=== PATIENT | female | born 1950 | race Hispanic/Latino ===

== ENCOUNTER 2023-06-18 06:37 | Day surgery (SDC) | payer MEDICARE, SELFPAY ==
--- NOTE | 2023-06-17 07:17 | WPDANESEPPF ---
Anes - Initial Pre Proc Eval Procedure: Operation Date: 06/18/23 09:00 Proposed Procedures p Esophagogastroduodenoscopy - Suresh Romero MD Date/Time: 06/17/23 07:17 Surgeon: Suresh Romero MD Pre Op Diagnosis: Gerd without Esophagitis Patient Data Age: 72 Gender: F Height: 1.57 m Weight: 69.8 kg Allergies Allergy/AdvReac Type Severity Reaction Status Date / Time latex AdvReac Rash Verified 06/18/23 07:40 Home Medications Medication Instructions Recorded Confirmed Type amlodipine 2.5 mg tablet 2.5 mg PO HS 04/23/23 06/18/23 History gemfibrozil 600 mg tablet 600 mg PO BID 04/23/23 06/18/23 History insulin glargine 100 unit/mL (3 50 unit subcut DAILY 04/23/23 06/18/23 History mL) subcutaneous pen (Basaglar KwikPen U-100 Insulin) losartan 25 mg tablet 25 mg PO DAILY 04/23/23 06/18/23 History metformin 1,000 mg tablet 1,000 mg PO BID 04/23/23 06/18/23 History pantoprazole 40 mg tablet,delayed 40 mg PO DAILY 04/23/23 06/18/23 History release rosuvastatin 40 mg tablet 40 mg PO DAILY 04/23/23 06/18/23 History semaglutide 0.25 mg or 0.5 mg (2 0.5 mg subcut WEEKLY 04/23/23 06/18/23 History mg/3 mL) subcutaneous pen injector (Ozempic) sertraline 50 mg tablet 50 mg PO DAILY 04/23/23 06/18/23 History Patient hx anesthesia problems: none Family hx anesthesia problems: none Results Review: All pre-operative results and documents have been reviewed as part of the pre-operative evaluation. [facility] Past Medical History Medical History (Updated 06/17/23 @ 13:16 by Suresh Romero MD) Anxiety Depression Diabetes type 2, controlled Hyperlipidemia Hypertension Social History Social History Smoking status: Former smoker Alcohol intake: current Alcohol use details: 2x per month Substance use type: does not use Living arrangements: alone Spiritual care concerns: No Anes - Eval Final PreProcedure Day of Procedure 06/17/23 07:17 Patient weight: overweight Heart: regular rate and rhythm Lungs: clear to auscultation Airway: Mallampati scale class II Neurological: alert and oriented Last oral intake: >/= 8 hours ASA classification: III Emergent: no Anesthetic plan: proceed Anesthesia type and monitoring: general GIVS and standard monitoring Results Review: All pre-operative results and documents have been reviewed as part of the pre-operative evaluation. Informed Consent: The patient's anesthetic plan and its attendant risks and benefits were discussed with the patient/family/POA. Questions were solicited and answers provided to the satisfaction of the patient/family/POA.
--- NOTE | 2023-06-17 13:16 | P.HP_ITS ---
History of Present Illness History of Present Illness Consent: Risks, benefits, and alternatives have been discussed and questions answered. Patient agrees to proceed with procedure. Chief complaint: Gerd without Esophagitis Narrative: Gena Flores is a 72 year old female was referred for investigation of refractory reflux symptoms. She has been taking pantoprazole 40 mg per day For the past month or so and it works fairly well for her. A urgent care nurse practitioner once her GB off of it because of her chronic kidney disease. She had tried for a while but it was totally not affective. Her main symptoms and that she has heartburn now relieved by pantoprazole but also regurgitates burps frequently. We discussed diet. She does drink quite a bit of water during the day usually straw. Review of Systems Review of Systems: All systems reviewed & are unremarkable except as noted in HPI and below PMFSH Past Medical History Medical History Anxiety Depression Diabetes type 2, controlled Hyperlipidemia Hypertension Social History Social History Smoking status: Former smoker Alcohol intake: current Alcohol use details: 2x per month Substance use type: does not use Living arrangements: alone Spiritual care concerns: No Meds Home Medications and Allergies Home Medications Medication Instructions Recorded Confirmed Type amlodipine 2.5 mg tablet 2.5 mg PO HS 04/23/23 06/18/23 History gemfibrozil 600 mg tablet 600 mg PO BID 04/23/23 06/18/23 History insulin glargine 100 unit/mL (3 50 unit subcut DAILY 04/23/23 06/18/23 History mL) subcutaneous pen (Basaglar KwikPen U-100 Insulin) losartan 25 mg tablet 25 mg PO DAILY 04/23/23 06/18/23 History metformin 1,000 mg tablet 1,000 mg PO BID 04/23/23 06/18/23 History pantoprazole 40 mg tablet,delayed 40 mg PO DAILY 04/23/23 06/18/23 History release rosuvastatin 40 mg tablet 40 mg PO DAILY 04/23/23 06/18/23 History semaglutide 0.25 mg or 0.5 mg (2 0.5 mg subcut WEEKLY 04/23/23 06/18/23 History mg/3 mL) subcutaneous pen injector (Ozempic) sertraline 50 mg tablet 50 mg PO DAILY 04/23/23 06/18/23 History Allergies Allergy/AdvReac Type Severity Reaction Status Date / Time latex AdvReac Rash Verified 06/18/23 07:40 Exam Const: General: alert Orientation/consciousness: patient oriented x3 Resp: Auscultation: clear to auscultation bilaterally Cardio: Rhythm: regular rhythm GI: GI Palp: Yes Soft to palpation and No Tenderness to palpation present (GI) Neuro: General: patient oriented x3 Assessment and Plan Assessment and plan (1) GERD (gastroesophageal reflux disease): Code(s): K21.9 - Gastro-esophageal reflux disease without esophagitis Status: Acute Assessment and Plan: EGD with possible biopsy or dilatation or cautery.
[2023-06-18 07:50] VITALS: BP 135/57; PULSE 65; RESP 16; TEMP 36.6; O2SAT 100; BMI 29.2
[2023-06-18] MEDS: LACTATED RINGERS 1,000 ML 150 ML IV CONT (08:03)
[2023-06-18 08:06] LABS: Glucose Point of Care 165 mg/dl (65-105)
[2023-06-18 08:45] VITALS: BP 109/41; PULSE 69; RESP 18; O2SAT 98
[2023-06-18 08:55] VITALS: BP 109/50; PULSE 66; RESP 18; O2SAT 100
[2023-06-18 09:05] VITALS: BP 123/53; PULSE 72; RESP 20; O2SAT 100
--- NOTE | 2023-06-18 11:48 | WPDANESPN ---
Anes - Prog Note Post-Op Date/Time: 06/18/23 11:48 Cardiovascular status: normal Respiratory status: normal Airway patency: baseline Mental status: baseline Post-Op hydration status: normal Vital Signs: Last Vital Signs Temp 36.6 C 06/18/23 07:50 Pulse 72 06/18/23 09:05 Resp 20 06/18/23 09:05 BP 123/53 L 06/18/23 09:05 Pulse Ox 100 06/18/23 09:05 O2 Del Method Room Air 06/18/23 09:05 Pain Score (VAS): 0 I/O: Intake & Output 06/17/23 06/18/23 06/18/23 23:59 07:59 15:59 Intake Total 300 Balance 300 06/18/23 08:01 POC Capillary Glucose 165 H Post-procedural complaints: none Patient Feedback: Patient satisfied with anesthetic care. Other Findings: Patient vital signs back to baseline. Patient denies nausea and vomiting. Patient's pain under control. Patient OK for discharge.
== END 2023-06-18 09:16 | disposition home or self-care (01) ==
PROVIDERS: PCP Internal Medicine; Visit Provider Internal Medicine Gastroenterology
PROC: 0DJ08ZZ Inspection of Upper Intestinal Tract, Via Natural or Artificial Opening Endoscopic (ICD-10-PCS; CPT 43235; principal; 2023-06-18 09:00)
DX: K21.00 Gastro-esophageal reflux disease with esophagitis, without bleeding (principal); K22.70 Barrett's esophagus without dysplasia
CPT/HCPCS: 43239

== ENCOUNTER 2023-06-18 07:00 | Outpatient (NON) | payer MEDICARE, SELFPAY | END 2023-06-18 07:01 | disposition home or self-care (01) | PROVIDERS: PCP Internal Medicine; Visit Provider Internal Medicine Gastroenterology | DX: K21.9 Gastro-esophageal reflux disease without esophagitis (principal) | CPT/HCPCS: 88305 ==

== ENCOUNTER 2023-12-24 10:22 | Outpatient (CLI) | payer MEDICARE, SELFPAY ==
--- NOTE | ~2023-12-24 | XR_ITS ---
Clinical Indication: Preoperative evaluation PA and lateral views of the chest: Comparison: None Findings: The lungs are clear, without evidence of focal consolidation or pleural effusion. Cardiome diastinal silhouette is within normal limits. Bones and soft tissues are unremarkable. Impression: Normal chest. Reviewed, dictated and finalized at location . Impression: Normal chest.
--- NOTE | 2023-12-24 11:51 | ECG_ITS ---
SEE SCANNED COPY FOR CONFIRMED REPORT MTDD
[2023-12-24 12:58] LABS: Basophils Percent Auto 0.3 % (0.2-1.2); Eosinophils Absolute Auto 0.1 K/mm3 (0-0.3); Hematocrit 35.3 % (37.0-47.0); Hemoglobin 10.9 g/dL (12.0-15.0); Immature Granulocyte Absolute 0.03 K/mm3 (0.00-0.031); Immature Granulocyte Percent A 0.2 % (0-0.5); Lymphocytes Absolute Auto 2.12 K/mm3 (0.9-3.2); Lymphocytes Percent Auto 16.8 % (18.3-44.2); Mean Corpuscular HGB Conc 30.9 g/dl (32-36); Mean Corpuscular Hemoglobin 30.4 pg (26-34); Mean Corpuscular Volume 98.3 fl (80-100); Mean Platelet Volume 11.6 fl (7.4-10.4); Monocytes Absolute Auto 0.9 K/mm3 (0.1-0.6); Monocytes Percent Auto 6.8 % (2.6-8.5); Neutrophils Absolute Auto 9.4 K/mm3 (1.3-6.7); Neutrophils Percent Auto 74.9 % (45.5-73.1); Platelet Count Result 352 k/mm3 (150-375); Red Blood Count 3.59 M/mm3 (4.2-5.4); Red Cell Distribution Width 11.8 % (11.5-14.5); White Blood Count 12.6 K/mm3 (4.5-10.0)
[2023-12-24 13:05] LABS: Appearance Urine Turbid (Clear); Bacteria Urine 4+ /hpf; Bilirubin Urine Negative (Negative); Blood Urine Trace (Negative); Color Urine Yellow (Yellow); Glucose Urine UA Negative (Negative); Ketones Urine Negative (Negative); Leukocyte Esterase Ur 3+ LEU/UL (Negative); Nitrate Urine Negative (Negative); Protein Urine 2+ mg/dL (Negative); RBC Urine 0-2 /hpf (0-2); Specific Grav Ur 1.014 (1.001-1.035); Squamous Epithelial Cell Urine Moderate /hpf (Few); Urobilinogen Urine 0.2 mg/dL (<2.0); WBC Urine >100 /hpf (0-3); pH Urine 5.5 (5.0-9.0)
[2023-12-24 13:17] LABS: INR 1.1; Prothrombin Time 14.5 Seconds (11.1-14.7)
[2023-12-24 13:18] LABS: Partial Thromboplastin Time 34.5 Seconds (22.3-36.8)
[2023-12-24 13:25] LABS: Add Urine Microscopic? YES
[2023-12-24 13:30] LABS: Alanine Aminotransferase 17 U/L (6-35); Alkaline Phosphatase 88 U/L (38-126); Anion Gap 11 mmol/L (4-12); Aspartate Amino Transferase 26 U/L (14-36); Bilirubin,Total 0.5 mg/dL (0.2-1.3); Blood Urea Nitrogen 27 mg/dL (7-17); Carbon Dioxide 24 mmol/L (22-30); Chloride 107 mmol/L (98-107); Cholesterol 147 mg/dL (0-200); Estimated Glomerular Filt Rate 37; Glucose 166 mg/dL (65-110); HDL Direct 51 mg/dL; Potassium 3.7 mmol/L (3.4-5.0); Sodium 142 mmol/L (137-145); Triglycerides 82 mg/dL (<150)
[2023-12-24 13:39] LABS: Hemoglobin A1C 7.2 % (<5.7)
[2023-12-24 13:40] LABS: Parathyroid Intact 75.7 pg/mL (7.5-53.5)
[2023-12-24 13:41] LABS: LDL Cholesterol Direct 66 mg/dL
[2023-12-24 14:02] LABS: Vitamin D 25 Hydroxy 46.4 ng/mL
[2023-12-24 17:53] LABS: Creatinine Urine 102.5 mg/dL; Total Protein Urine Random 78 mg/dL; Ur Ttl Prot Creatinine Ratio 0.76 mg/mg (0-0.20)
== END 2023-12-24 10:23 | disposition home or self-care (01) ==
LOC: ANHSURGERY 10:25 → ANHLAB 11:04 → ANHSURGERY 11:32
PROVIDERS: PCP Internal Medicine; Referring Provider Internal Medicine Nephrology; Visit Provider Surgery
DX: Z01.818 Encounter for other preprocedural examination (principal); K22.70 Barrett's esophagus without dysplasia; N18.9 Chronic kidney disease, unspecified; K21.00 Gastro-esophageal reflux disease with esophagitis, without bleeding
CPT/HCPCS: 36415; 71046; 80053; 80061; 81001; 82306; 82570; 83036; 83970; 84100; 84156; 85025; 85610; 85730; 93005

== ENCOUNTER 2023-12-29 09:48 | Outpatient (CLI) | payer MEDICARE, SELFPAY ==
[2023-12-29 10:16] LABS: Appearance Urine Cloudy (Clear); Bacteria Urine 4+ /hpf; Bilirubin Urine Negative (Negative); Blood Urine Non-Hemolyzed Trace (Negative); Color Urine Yellow (Yellow); Glucose Urine UA Negative (Negative); Ketones Urine Negative (Negative); Leukocyte Esterase Ur 3+ LEU/UL (Negative); Nitrate Urine Positive (Negative); Protein Urine 1+ mg/dL (Negative); RBC Urine 0-2 /hpf (0-2); Specific Grav Ur 1.015 (1.001-1.035); Squamous Epithelial Cell Urine Occasional /hpf (Few); Urobilinogen Urine 0.2 mg/dL (<2.0); WBC Urine >100 /hpf (0-3); pH Urine 5.5 (5.0-9.0)
[2023-12-29 10:19] LABS: Add Urine Microscopic? YES
== END 2023-12-29 09:49 | disposition home or self-care (01) ==
PROVIDERS: PCP Internal Medicine; Visit Provider Surgery
DX: R39.89 Other symptoms and signs involving the genitourinary system (principal)
CPT/HCPCS: 81001; 87077; 87086; 87088; 87186

== ENCOUNTER 2024-02-05 11:18 | Outpatient (CLI) | payer MEDICARE, SELFPAY | END 2024-02-05 11:19 | disposition home or self-care (01) | PROVIDERS: PCP Internal Medicine; Visit Provider Surgery | DX: Z01.818 Encounter for other preprocedural examination (principal); K21.00 Gastro-esophageal reflux disease with esophagitis, without bleeding | CPT/HCPCS: 36415; 86850; 86900; 86901 ==

== ENCOUNTER 2024-02-10 01:26 | Day surgery (SDC) | payer MEDICARE, SELFPAY ==
[2023-12-21 16:04] VITALS: BMI 30.1
--- NOTE | 2023-12-21 16:27 | PC.NURSE ---
Report to the Outpatient Waiting Room, entrance under the green pavilion located off [facility], at time ___6:30AM____ on date __01/06/24 . Planned Procedure Time: __8:30AM . Time changes happen often and if your time is changed the preop area will call you the afternoon before. - You and your visitor will be asked to self-screen and do not enter if you have any COVID symptoms. - A mask is optional within the hospital at this time. CLEAR LIQUIDS FOR SUPPER ON EVENING BEFORE SURGERY PER DR BROWN(NO SOLID FOODS). Patients may have clear liquids (water, carbonated beverages, clear teas, apple juice) until 3 hours prior to surgery with a maximum of 20 ounces. Take the following medications with a SIP of water the morning of surgery: ___SERTRALINE DO NOT STOP ANY OF YOUR OTHER PRESCRIPTION MEDICATIONS PRIOR TO SURGERY ?EXCEPT THE FOLLOWING Medications to discontinue per physician HOLD PRESERVISION AREDS 2 FOR 3 DAYS PRE-OP PER ANESTHESIA Date to take last dose 01/02/24 Please no make-up, nail french, hairspray, perfume, deodorant, or body powder the day of surgery. No jewelry (including any body piercings) or valuables the day of surgery, leave them at home. Please take a shower or bath the night before, or the morning of, surgery with an antibacterial soap. Wear comfortable, loose fitting clothing. - Jewelry must be removed prior to entering the operating room. Rings and piercings that are not removed may be cut off. - The hospital will not accept responsibility for valuables. - Please leave all valuables, including medications, at home the day of surgery. If you are going home after surgery, a licensed local company refrigerated truck driver must drive you home. - NO public transportation without another adult if you receive anesthesia. - We recommend that an adult stay with you for 24 hours following discharge. - We also recommend that you do not drive, make important decision, drink alcoholic beverages, or take any drugs that were not prescribed by your health care provider for at least 24 hours after your discharge time. Follow any additional instructions given to you from your surgeon. If you or anyone in your household have experienced Covid symptoms in the past week, please notify your surgeon or the nurse liaison at the phone number below for possible testing. Telephone instructions given to ___PATIENT and asked if any additional questions and then verbalized understanding. Patient advised to call surgeon office or pre surgery nurse liaison [phone] if any additional questions.
--- NOTE | 2024-01-04 17:06 | PM.IMHP ---
H&P: HPI History of Present Illness Date/Time: 01/04/24 17:06 Chief Complaint: GERD with esophagitis and Curran's esophagus (no dysplasia); Hiatal hernia Narrative: The patient is a 73 yo woman who has had problems with reflux for over 30 years. She had tried multiple antacids, and acid reducing agents with only fair relief. She has been managed best with Pantoprazole twice a day. However, she is an insulin dependent diabetic and has CKD stage III. Her free lance artist wants her to discontinue her proton pump inhibitors due to her CKD. When off her Protonix she has severe heartburn. Even with Protonix, she has a lot of regurgitation and eructation. She had an EGD in June which showed esophagitis and Curran's esophagus without dysplasia. She had esophageal manometry which showed ineffective esophageal motility with contraction reserve and her LES was hypotensive. After discussion, she is taken to surgery now for laparoscopic repair of hiatal hernia and a partial (Toupet) fundoplication. Review of Systems Review of Systems: All systems reviewed & are unremarkable except as noted in HPI and below (HPI and those items noted below:) Constitutional: Constitutional: Denies chills and Denies fever(s) Cardiovascular: Cardiovascular: Denies chest pain, Denies diaphoresis, Denies dyspnea and Denies paroxysmal nocturnal dyspnea Respiratory: Respiratory: Denies chest congestion, Denies cough and Denies dyspnea Genitourinary: Comments: patient had abnormal U/A 2 weeks ago. Cultures were positive for Klebsiella. This has been treated as an outpatient with Bactrim DS. Integumentary/Breasts: Skin/Breast: Denies lesions and Denies rash PMFSH Past Medical History Medical History Anxiety Depression Diabetes type 2, controlled Hyperlipidemia Hypertension Surgical History Surgical History H/O tubal ligation History of surgery on lower extremity Family History Family History Father Diabetes mellitus Mother Heart disease Hypertension Grandparent Heart disease Cerebrovascular accident Social History Social History Smoking packs per day: 2 Smoking cigarettes per day: 40.0 Years smoked: 23 Smoking pack-years: 46.00 Smoking status: Former smoker Tobacco type: cigarettes Smoking end date: 02/07/95 Alcohol intake: current Alcohol use details: 2x per month Substance use type: does not use Living arrangements: with family Additional living arrangements comments: MOTHER LIVES WITH PATIENT Spiritual care concerns: No Meds Home Medications and Allergies Home Medications Medication Instructions Recorded Confirmed Type amlodipine 2.5 mg tablet 2.5 mg PO HS 04/23/23 12/21/23 History gemfibrozil 600 mg tablet 600 mg PO BID 04/23/23 12/21/23 History insulin glargine 100 unit/mL (3 40 unit subcut DAILY 04/23/23 12/21/23 History mL) subcutaneous pen (Basaglar KwikPen U-100 Insulin) metformin 1,000 mg tablet 1,000 mg PO BID 04/23/23 12/21/23 History rosuvastatin 40 mg tablet 40 mg PO DAILY 04/23/23 12/21/23 History semaglutide 0.25 mg or 0.5 mg (2 0.5 mg subcut WEEKLY 04/23/23 12/21/23 History mg/3 mL) subcutaneous pen injector (Ozempic) sertraline 50 mg tablet 50 mg PO QAM 04/23/23 12/21/23 History pantoprazole 40 mg tablet,delayed 40 mg PO BID #60 tabs 10/16/23 12/21/23 Rx release losartan 25 mg tablet 25 mg PO QAM 12/21/23 12/21/23 History vit C 250 mg-vit E 90 mg-zinc 40 1 tablet PO BID 12/21/23 12/21/23 History mg-copper 1 [id number] capsule (PreserVision AREDS-2) sulfamethoxazole 800 1 tablet PO BID #10 tabs 12/30/23 Rx mg-trimethoprim 160 mg tablet (Bactrim DS) Allergies Allergy/AdvReac Type Severity Reaction Status Date / Time latex Erich
[2024-02-04 15:53] VITALS: BMI 29.9
--- NOTE | 2024-02-04 16:06 | PC.NURSE ---
Report to the Outpatient Waiting Room, entrance under the green pavilion located off [facility], at time __6:00AM on date __02/10/24 . Planned Procedure Time: ___7:30AM . Time changes happen often and if your time is changed the preop area will call you the afternoon before. - You and your visitor will be asked to self-screen and do not enter if you have any COVID symptoms. - A mask is optional within the hospital at this time. Patients may have clear liquids (water, carbonated beverages, clear teas, apple juice) until 3 hours prior to surgery with a maximum of 20 ounces. - No food from midnight until time of surgery. Take the following medications with a SIP of water the morning of surgery: ___SERTRALINE DO NOT STOP ANY OF YOUR OTHER PRESCRIPTION MEDICATIONS PRIOR TO SURGERY ?EXCEPT THE FOLLOWING Medications to discontinue per physician ___HOLD ALL VITAMINS/SUPPLEMENTS 3 DAYS PRE-OP Date to take last dose____02/06/24 Please no make-up, nail italian, hairspray, perfume, deodorant, or body powder the day of surgery. No jewelry (including any body piercings) or valuables the day of surgery, leave them at home. Please take a shower or bath the night before, or the morning of, surgery with an antibacterial soap. Wear comfortable, loose fitting clothing. - Jewelry must be removed prior to entering the operating room. Rings and piercings that are not removed may be cut off. - The hospital will not accept responsibility for valuables. - Please leave all valuables, including medications, at home the day of surgery. If you are going home after surgery, a licensed cdl b driver must drive you home. - NO public transportation without another adult if you receive anesthesia. - We recommend that an adult stay with you for 24 hours following discharge. - We also recommend that you do not drive, make important decision, drink alcoholic beverages, or take any drugs that were not prescribed by your health care provider for at least 24 hours after your discharge time. Follow any additional instructions given to you from your surgeon. If you or anyone in your household have experienced Covid symptoms in the past week, please notify your surgeon or the nurse liaison at the phone number below for possible testing. Telephone instructions given to PATIENT and asked if any additional questions and then verbalized understanding. Patient advised to call surgeon office or pre surgery nurse liaison [phone] if any additional questions.
[2024-02-10] VITALS (15 sets, daily range): BP systolic 116–159; BP diastolic 41–74; PULSE 71–85; RESP 12–20; TEMP 36.2–36.6; O2SAT 95–100
[2024-02-10] MEDS: LACTATED RINGERS 1,000 ML 30 ML IV CONT ×2 (07:05→10:26)
--- NOTE | 2024-02-10 07:12 | WPDANESEPPF ---
Anes - Initial Pre Proc Eval Procedure: Operation Date: 02/10/24 07:30 Proposed Procedures p Laparoscopic Toupet Fundoplication with Hiatal Hernia Repair - Joe Rosales MD Date/Time: 02/10/24 07:12 Surgeon: Joe Rosales MD Pre Op Diagnosis: GERD with Esophagitis, Barretts Esophagus Patient Data Age: 73 Gender: F Height: 1.56 m Weight: 73 kg Allergies Allergy/AdvReac Type Severity Reaction Status Date / Time latex Allergy SWELLING, Verified 02/04/24 16:02 BLISTER salmon oil Allergy Blister Verified 02/04/24 16:02 HAND DELIVERER OUTSIDE AdvReac Blister Uncoded 02/10/24 06:13 Home Medications Medication Instructions Recorded Confirmed Type amlodipine 2.5 mg tablet 2.5 mg PO HS 04/23/23 02/04/24 History gemfibrozil 600 mg tablet 600 mg PO BID 04/23/23 02/10/24 History insulin glargine 100 unit/mL (3 40 unit subcut DAILY 04/23/23 02/10/24 History mL) subcutaneous pen (Volusionaglar KwikPen U-100 Insulin) rosuvastatin 40 mg tablet 40 mg PO DAILY 04/23/23 02/10/24 History semaglutide 0.25 mg or 0.5 mg (2 0.5 mg subcut WEEKLY 04/23/23 02/10/24 History mg/3 mL) subcutaneous pen injector (Ozempic) sertraline 50 mg tablet 50 mg PO QAM 04/23/23 02/10/24 History pantoprazole 40 mg tablet,delayed 40 mg PO BID #60 tabs 10/16/23 02/10/24 Rx release losartan 25 mg tablet 25 mg PO QAM 12/21/23 02/10/24 History vit C 250 mg-vit E 90 mg-zinc 40 1 tablet PO BID 12/21/23 02/10/24 History mg-copper 1 [id number] capsule (PreserVision AREDS-2) metformin 500 mg tablet,extended 500 mg PO BID 02/04/24 02/10/24 History release 24 hr Patient hx anesthesia problems: none Family hx anesthesia problems: post op nausea/vomiting Results Review: All pre-operative results and documents have been reviewed as part of the pre-operative evaluation. [facility] Past Medical History Medical History Anxiety Depression Diabetes type 2, controlled Hyperlipidemia Hypertension Surgical History Surgical History H/O tubal ligation History of surgery on lower extremity Family History Family History Father Diabetes mellitus Mother Heart disease Hypertension Grandparent Heart disease Cerebrovascular accident Social History Social History Smoking packs per day: 2 Smoking cigarettes per day: 40.0 Years smoked: 23 Smoking pack-years: 46.00 Smoking status: Former smoker Tobacco type: cigarettes Smoking end date: 02/07/95 Alcohol intake: current Alcohol use details: 2x per month Substance use type: does not use Living arrangements: with family Additional living arrangements comments: MOTHER LIVES WITH PATIENT Spiritual care concerns: No Anes - Eval Final PreProcedure Day of Procedure 02/10/24 07:12 Patient weight: overweight Heart: regular rate and rhythm Lungs: decreased breath sounds Airway: Mallampati scale class II Neurological: alert and oriented Last oral intake: >/= 8 hours ASA classification: III Emergent: no Anesthetic plan: proceed Anesthesia type and monitoring: general ETT and standard monitoring Results Review: All pre-operative results and documents have been reviewed as part of the pre-operative evaluation. Informed Consent: The patient's anesthetic plan and its attendant risks and benefits were discussed with the patient/family/POA. Questions were solicited and answers provided to the satisfaction of the patient/family/POA.
[2024-02-10 07:14] LABS: Glucose Point of Care 138 mg/dl (65-105)
--- NOTE | 2024-02-10 07:21 | WPDHPUPDATE1 ---
History and Physical Update Update Date/Time: 02/10/24 07:21 History and Physical has been reviewed, including an updated exam of the patient. There are NO changes in the patient's condition. Risks, benefits, and alternatives have been discussed and questions answered. Patient agrees to proceed with procedure.
--- NOTE | 2024-02-10 07:21 | PM.IMHP ---
H&P: HPI History of Present Illness Date/Time: 02/10/24 07:21 Chief Complaint: GERD, esophagitis, Curran's, hiatal hernia Narrative: The patient is a 73 yo woman who has had problems with reflux for over 30 years. She had tried multiple antacids, and acid reducing agents with only fair relief. She has been managed best with Pantoprazole twice a day. However, she is an insulin dependent diabetic and has CKD stage III. Her motion picture equipment supervisor wants her to discontinue her proton pump inhibitors due to her CKD. When off her Protonix she has severe heartburn. Even with Protonix, she has a lot of regurgitation and eructation. She had an EGD in June which showed esophagitis and Curran's esophagus without dysplasia. She had esophageal manometry which showed ineffective esophageal motility with contraction reserve and her LES was hypotensive. After discussion, she is taken to surgery now for laparoscopic repair of hiatal hernia and a partial (Toupet) fundoplication. Review of Systems Review of Systems: All systems reviewed & are unremarkable except as noted in HPI and below (HPI) [facility] Past Medical History Medical History Anxiety Depression Diabetes type 2, controlled Hyperlipidemia Hypertension Surgical History Surgical History H/O tubal ligation History of surgery on lower extremity Family History Family History Father Diabetes mellitus Mother Heart disease Hypertension Grandparent Heart disease Cerebrovascular accident Social History Social History Smoking packs per day: 2 Smoking cigarettes per day: 40.0 Years smoked: 23 Smoking pack-years: 46.00 Smoking status: Former smoker Tobacco type: cigarettes Smoking end date: 02/07/95 Alcohol intake: current Alcohol use details: 2x per month Substance use type: does not use Living arrangements: with family Additional living arrangements comments: MOTHER LIVES WITH PATIENT Spiritual care concerns: No Meds Home Medications and Allergies Home Medications Medication Instructions Recorded Confirmed Type amlodipine 2.5 mg tablet 2.5 mg PO HS 04/23/23 02/04/24 History gemfibrozil 600 mg tablet 600 mg PO BID 04/23/23 02/10/24 History insulin glargine 100 unit/mL (3 40 unit subcut DAILY 04/23/23 02/10/24 History mL) subcutaneous pen (Basaglar KwikPen U-100 Insulin) rosuvastatin 40 mg tablet 40 mg PO DAILY 04/23/23 02/10/24 History semaglutide 0.25 mg or 0.5 mg (2 0.5 mg subcut WEEKLY 04/23/23 02/10/24 History mg/3 mL) subcutaneous pen injector (Ozempic) sertraline 50 mg tablet 50 mg PO QAM 04/23/23 02/10/24 History pantoprazole 40 mg tablet,delayed 40 mg PO BID #60 tabs 10/16/23 02/10/24 Rx release losartan 25 mg tablet 25 mg PO QAM 12/21/23 02/10/24 History vit C 250 mg-vit E 90 mg-zinc 40 1 tablet PO BID 12/21/23 02/10/24 History mg-copper 1 [id number] capsule (PreserVision AREDS-2) metformin 500 mg tablet,extended 500 mg PO BID 02/04/24 02/10/24 History release 24 hr Allergies Allergy/AdvReac Type Severity Reaction Status Date / Time latex Allergy SWELLING, Verified 02/04/24 16:02 BLISTER salmon oil Allergy Blister Verified 02/04/24 16:02 HAND SECURED ENTRANCE MONITOR AdvReac Blister Uncoded 02/10/24 06:13 Exam Const: General: comfortable, no acute distress, alert and awake HENMT: Head: normocephalic and atraumatic Mouth: Yes Normal oral and palatal mucosa present Eyes: Conjunctivae: conjunctivae normal Pupils: Equal, round and reactive pupils present EOM: EOMs intact bilaterally Neck: Neck: normal visual inspection, no lymphadenopathy and nontender Resp: Effort & Inspection: normal respiratory effort Auscultation: clear to auscultation bilaterally Cardio: Rate: regular rate R
[2024-02-10] MEDS: ceFAZolin 2 GM/D5W 50 ML 2 GM/50 ML BAG IVPB (07:34)
[2024-02-10] MEDS: BUPIVACAINE/EPINEPHRINE 0.5% 10 ML VIAL 30 ML INFILTRATE (08:17)
[2024-02-10] MEDS: fentaNYL CITRATE INJ (*CRX) 100 MCG/2 ML VIAL 25 MCG IV PUSH ×5 (10:26→10:58)
--- NOTE | 2024-02-10 10:48 | W.PM.PROC2 ---
Procedure Note - Detailed Date of Procedure 02/10/24 Pre-op Diagnosis GERD with Esophagitis, Barretts Esophagus Post-op Diagnosis Same Procedure Performed Laparoscopic repair hiatal hernia with partial fundoplication Surgeon Joe Rosales MD Snack Stewardess Bridget Horn [facility] Anesthesia General and Local Indications Patient has history of longstanding gastroesophageal reflux disease. On endoscopy she was noted to have esophagitis and Curran's esophagus with no dysplasia. She has a hiatal hernia as well. She is diabetic and has chronic kidney disease. Although her symptoms are pretty well controlled with proton pump inhibitors twice a day, her skate boarder feels that continuing to take these medications will contribute to renal failure. After discussion, she is taken to surgery now for laparoscopic repair of hiatal hernia with partial or Toupet fundoplication. Patient's esophageal manometry did show some impaired esophageal motility and for this reason the partial fundoplication is being performed. Findings Hiatal hernia. Description of Procedure Patient was taken to surgery and induced into general anesthesia. The abdomen is prepped and draped. Initial incision was just right of midline. Local anesthetic was infiltrated prior to placement of the incisions for trocar placement. The varies needle was introduced and peritoneal insufflation was carried out. We then placed a 5 mm applied Medical optical trocar in the peritoneal cavity. The scope was placed and all looked good. A 10 11 port was placed laterally under the left costal margin. I then placed the Mike self-retaining retractor in the left epigastric area. The Mike was then used to retract the lateral segment of the left lobe of the liver and expose the esophageal hiatus and the hernia. Finally we placed 09/19/2010 ports 1 on the right and 1 on the left above the initial port as working instrument ports. Patient was in reverse Trendelenburg. We started the procedure by opening the hepatogastric ligament and exposing the right rosemary. This and really all dissection was done with the LigaSure. We then entered the mediastinum staying outside of the hernia sac and proceeding behind the right rosemary. We were able to dissect out the hernia and much of the esophagus with this dissection. The apex of the right and left crura was also dissected so the hernia sac was evident. We dissected over to the left side of the hernia sac. We then raised the stomach and distal esophagus and dissected posterior to the esophagus up to at least the middle portion of the mediastinum. The stomach was then turned so that the greater curvature was anterior and that traction was placed on the greater omentum. The LigaSure was then used to divide short gastric vessels along the greater curvature of the stomach proceeding from about the mid stomach up to the fundus. This process went well but as we got very close to the hiatal hernia and left rosemary, the adhesions were dense. We had to position the stomach several different times but eventually were able to free these adhesions from the left rosemary and also any posterior gastric adhesions so the stomach was pretty mobile at its upper half. We then dissected in the mediastinum just to the left and behind the esophagus. We dissected high in the mediastinum in this manner freeing the esophagus well up into the upper mediastinum. No bleeding occurred with this dissection using the LigaSure. Once all that could be done from this position was complete, we then placed the stomach back in its normal position and then elevated the esophagogastric junction, taking down additional posterior right-sided and anterior adhesions to the esophagus high up into the mediastinum from this aspect. At this point we had the hernia completely reduced and probably 6 cm of intra-abdominal esophagus. I excised the hernia sac so that the lower esophagus was readily apparent as was the gastr
--- NOTE | 2024-02-10 11:20 | SUR.PHASEI ---
Patient meets PACU discharge criteria, unit bed unavailable at this time. Patient placed in extended recovery status.
[2024-02-10 11:53] LABS: Glucose Point of Care 220 mg/dl (65-105)
--- NOTE | 2024-02-10 12:15 | PC.NURSE ---
This patient, Gena Flores, was admitted to [facility] Surg Room 331-02. Patient/family oriented to hospital policies and general routines including ID bracelet, bed and alarms, visiting hours, pain management, procedures, bathroom and other care routines, personal items, smoking policy, room service/diet, and visiting hours. Information on how to activate the Rapid Response Team has been discussed. Patient/Family are encouraged to report perceived risks to care and to ask questions if they do not understand what they are told or what they should do.
[2024-02-10] MEDS: ACETAMINOPHEN 500 MG TABLET PO ×2 (14:20→22:32)
--- NOTE | 2024-02-10 15:10 | PM.IMCN ---
Assessment and Plan Assessment and plan (1) Gastroesophageal reflux disease with esophagitis without hemorrhage: Code(s): K21.00 - Gastro-esophageal reflux disease with esophagitis, without bleeding Status: Chronic Assessment and Plan: - underwent a laparoscopic repair of her hiatal hernia with partial fundoplication on 02/10/24 with Bobby QUINTEROS - clear liquid diet - Lovenox - pain control - PPI BID - primary post-surgical management through general surgery (2) Curran's esophagus without dysplasia: Code(s): K22.70 - Curran's esophagus without dysplasia Status: Chronic Assessment and Plan: - see above (3) Diabetes type 2, controlled: Qualifiers: Diabetes mellitus complication status: without complication Diabetes mellitus roasterman insulin use: with roasterman use Qualified Code(s): E11.9 - Type 2 diabetes mellitus without complications; Z79.4 - roasterman (current) use of insulin Code(s): E11.9 - Type 2 diabetes mellitus without complications Status: Chronic Assessment and Plan: - hypoglycemia protocol - POC blood glucose ACHS - home medication: hold Lantus 40 units subQ daily and metformin 500 mg b.i.d. Continue Ozempic, injection day Thursday. - correct regimen ordered - moderate dose TIDWM and HS - A1C 7.2% on 12/24/2023 (4) CKD (chronic kidney disease): Qualifiers: Chronic kidney disease stage: unspecified stage Qualified Code(s): N18.9 - Chronic kidney disease, unspecified Code(s): N18.9 - Chronic kidney disease, unspecified Status: Chronic Assessment and Plan: - creatinine 1.4 and GFR 37, no previous available for comparison - trend renal function - trend electrolytes, correct as needed (5) Hypertension: Qualifiers: Hypertension type: primary hypertension Qualified Code(s): I10 - Essential (primary) hypertension Code(s): I10 - Essential (primary) hypertension Status: Chronic Assessment and Plan: - chronic, currently 150/59 - continue home medications: amlodipine 2.5 mg HS, losartan 25 mg q.a.m. - monitor Plan Patient postoperative, had a laparoscopic repair of her hiatal hernia with partial fundoplication on 02/10/24 with Bobby QUINTEROS. Patient has concurrent HTN and DM, home medications reviewed and resumed as appropriate. Mod sliding scale and hypoglycemia protocol in place. Monitor glucose levels and blood pressure. Diet: clear liquid GI Prophylaxis: pantoprazole b.i.d. DVT Prophylaxis: Lovenox Lines: peripheral Code Status: full code HPI Date of Consult Consult date: 02/11/24 Requesting Physician: Joe Rosales MD Primary Care Provider: Eliecer Morales, MD Consult Narrative Reason for consult: perioperative management diabetes, medical problems Narrative: 73 y/o F presents here for surgery - laparoscopic repair of hiatal hernia and a partial (Toupet) fundoplication with PMH of GERD, Curran's, anxiety/ depression, diabetes, HLD, and hypertension. The patient has long standing GERD for approximately 30 years. Has failed multiple antacids and has only obtained partial relief through oral medication. Currently on Pantoprazole BID, has concurrent CKD/DM, sees nephrology who would like her to d/c the PPI due to her CKD. Patient has previously tried to discontinue her PPI but had severe reflux as a result. Most recent EGD in 06/2023 showed esophagitis and Curran's esophagus without dysplasia. Esophageal manometer in 09/2023 showed ineffective esophageal motility with contraction reserve, small hiatal hernia, and hypotensive LES that relaxes normally. No current complaints. Denying postoperative nausea, vomiting, abdominal pain. Denies any recent changes to her medications or new medications. Preop workup:WBC 12.6, hemoglobin 10.9, creatinine 1.4 and GFR 37, A1C 7.2. CXR showed normal chest. Preop VS: 97.1? F HR 79, RR 20, 139/41, and 95% on RA. R
[2024-02-10] MEDS: OPTI-GEN TAB 1 TABLET PO (16:20)
[2024-02-10] MEDS: gemfibroziL 600 MG TABLET PO (16:20)
[2024-02-10] MEDS: INSULIN ASPART (*BKC) 100 UNITS/ML SUB-Q (16:56)
[2024-02-10 17:02] LABS: Glucose Point of Care 280 mg/dl (65-105)
[2024-02-10] MEDS: oxyCODONE/ACETAMINOPHEN (*CRX) 5-325 MG TABLET 1 TABLET PO (18:28)
[2024-02-10 22:06] LABS: Glucose Point of Care 188 mg/dl (65-105)
[2024-02-10] MEDS: amLODIPine BESYLATE 2.5 MG TABLET PO (22:21)
[2024-02-11] VITALS: BP 155/60; PULSE 72; RESP 16; TEMP 36.6; O2SAT 98
[2024-02-11 05:51] VITALS: BP 153/60; PULSE 75; RESP 18; TEMP 36.6; O2SAT 97
[2024-02-11 06:31] LABS: Hematocrit 32.4 % (37.0-47.0); Hemoglobin 10.7 g/dL (12.0-15.0); Mean Corpuscular Hemoglobin 30.4 pg (26-34); Mean Platelet Volume 11.6 fl (7.4-10.4); Platelet Count Result 288 k/mm3 (150-375); Red Blood Count 3.52 M/mm3 (4.2-5.4); Red Cell Distribution Width 12.4 % (11.5-14.5); White Blood Count 11.7 K/mm3 (4.5-10.0)
[2024-02-11 06:39] LABS: Anion Gap 7 mmol/L (4-12); Blood Urea Nitrogen 25 mg/dL (7-17); Calcium 9.5 mg/dL (8.4-10.2); Carbon Dioxide 31 mmol/L (22-30); Chloride 104 mmol/L (98-107); Estimated CRCL calculation 35 ml/min; Estimated Glomerular Filt Rate 44; Glucose 153 mg/dL (65-110); Sodium 142 mmol/L (137-145)
[2024-02-11] MEDS: gemfibroziL 600 MG TABLET PO (06:51)
[2024-02-11] MEDS: ACETAMINOPHEN 500 MG TABLET PO ×2 (06:53→12:18)
[2024-02-11 08:10] LABS: Glucose Point of Care 152 mg/dl (65-105)
[2024-02-11] MEDS: ENOXAPARIN 40 MG/0.4 ML SYRINGE SUB-Q (08:54)
[2024-02-11] MEDS: ROSUVASTATIN 20 MG TABLET 40 MG PO (08:54)
[2024-02-11] MEDS: LOSARTAN POTASSIUM 25 MG TABLET PO (08:55)
[2024-02-11] MEDS: PANTOPRAZOLE 40 MG TABLET PO (08:55)
[2024-02-11] MEDS: polyethylene glycoL 3350 17 GM POWD.PACK PO (08:55)
[2024-02-11] MEDS: OPTI-GEN TAB 1 TABLET PO (08:55)
[2024-02-11] MEDS: SERTRALINE HCL 50 MG TABLET PO (08:55)
[2024-02-11 09:06] VITALS: O2SAT 98
[2024-02-11 09:09] VITALS: BP 139/49; PULSE 85; RESP 24; TEMP 37; O2SAT 98
--- NOTE | 2024-02-11 10:47 | PM.DS ---
DS: Admitting Diagnosis Discharge Date 02/11/2024 Admitting Diagnosis Hiatal hernia with GERD, Curran's esophagitis DS: Discharge Diagnosis Discharge Diagnosis (1) Curran's esophagus without dysplasia: Code(s): K22.70 - Curran's esophagus without dysplasia Status: Chronic Assessment and Plan: status post laparoscopic hiatal hernia repair with partial fundoplication, routine postoperative care, postoperative instructions sent including instructions for diet and prescriptions for pain medication and PPI (2) Gastroesophageal reflux disease with esophagitis without hemorrhage: Code(s): K21.00 - Gastro-esophageal reflux disease with esophagitis, without bleeding Status: Chronic Assessment and Plan: see above (3) Diabetes type 2, controlled: Qualifiers: Diabetes mellitus complication status: without complication Diabetes mellitus intermediate manager insulin use: with intermediate manager use Qualified Code(s): E11.9 - Type 2 diabetes mellitus without complications; Z79.4 - retirement (current) use of insulin Code(s): E11.9 - Type 2 diabetes mellitus without complications Status: Chronic Assessment and Plan: stable, continue home medications (4) Hypertension: Qualifiers: Hypertension type: primary hypertension Qualified Code(s): I10 - Essential (primary) hypertension Code(s): I10 - Essential (primary) hypertension Status: Chronic Assessment and Plan: stable, continue home medications (5) CKD (chronic kidney disease): Qualifiers: Chronic kidney disease stage: unspecified stage Qualified Code(s): N18.9 - Chronic kidney disease, unspecified Code(s): N18.9 - Chronic kidney disease, unspecified Status: Chronic Assessment and Plan: stable, continue to monitor per primary care DS: Summary Hospital Course Reason for hospitalization: GERD with Curran's esophagitis Hospital Course: The patient is a 73-year-old female that was initially seen in the office with hiatal hernia, gastro esophageal reflux disease, Curran's esophagitis. Upon evaluation, including manometry and imaging, the decision was made to proceed laparoscopic hiatal hernia repair and partial fundoplication. The patient was taken the operating room and these procedures were performed on 02/10/2024, please see full operative report for details of the procedure. Postoperatively, the patient did well was transferred to the surgical floor. On postoperative day 1. , the patient is tolerating a clear liquid diet including Ensure. She is up and ambulating without difficulty. Her pain is well controlled p.o. analgesia. She will be sent home with strict dietary instructions and routine postoperative care. Prescriptions have been sent for p.o. analgesia, stool softeners, and PPI. She will follow up with Dr. Rosales and 3 weeks. Status at Discharge Functional status at discharge: independent ambulation Overall status at discharge: patient is progressing back to baseline Time Spent with Patient Time attestation: Total time spent providing and/or coordinating discharge services: Time spent: Less than 30 minutes Exam Const: General: cooperative, comfortable and no acute distress Resp: Auscultation: clear to auscultation bilaterally Cardio: Rate: regular rate Rhythm: regular rhythm GI: Inspection: normal to inspection, distended and incision GI Palp: Yes abdominal tenderness, Yes Soft to palpation, Yes Tenderness to palpation present (GI), No Guarding due to palpation present (GI) and No Rigid due to palpation DS: Data Data Completed and Pending Labs on day of discharge: Labs from last 24 hours 02/11/24 02/11/24 02/10/24 08:07 05:56 21:03 WBC 11.7 H RBC 3.52 L Hgb 10.7 L Hct 32.4 L MCV 92.0 MCH 30.4 MCHC 33.0 RDW 12.4 Plt Count 288 MPV 11.6 H Sodium 142 Potassium 4.0 Chloride 104 Carbon Dioxide 31 H An
[2024-02-11 11:29] LABS: Glucose Point of Care 309 mg/dl (65-105)
[2024-02-11] MEDS: INSULIN ASPART (*BKC) 100 UNITS/ML SUB-Q (11:50)
--- NOTE | 2024-02-11 13:18 | WPDANESPN ---
Anes - Prog Note Post-Op Date/Time: 02/11/24 13:18 Cardiovascular status: normal Respiratory status: normal Airway patency: baseline Mental status: baseline Post-Op hydration status: normal Vital Signs: Last Vital Signs Temp 37.0 C 02/11/24 09:09 Pulse 85 02/11/24 09:09 Resp 24 H 02/11/24 09:09 BP 139/49 L 02/11/24 09:09 Pulse Ox 98 02/11/24 09:09 O2 Del Method Room Air 02/11/24 09:06 O2 Flow Rate 8 02/10/24 10:35 Pain Score (VAS): 10/17 I/O: Intake & Output 02/10/24 02/11/24 02/11/24 23:59 07:59 15:59 Intake Total 240 100 60 Balance 240 100 60 Laboratory Tests 02/11/24 05:56 02/11/24 05:56 02/10/24 02/10/24 02/11/24 16:55 21:03 05:56 WBC 11.7 H RBC 3.52 L Hgb 10.7 L Hct 32.4 L MCV 92.0 MCH 30.4 MCHC 33.0 RDW 12.4 Plt Count 288 MPV 11.6 H Sodium 142 Potassium 4.0 Chloride 104 Carbon Dioxide 31 H Anion Gap 7 BUN 25 H Creatinine 1.20 H Estim Creat Clear Calc 35 Estimated GFR 44 L Glucose 153 H POC Capillary Glucose 280 H 188 H Calcium 9.5 02/11/24 02/11/24 08:07 11:26 WBC RBC Hgb Hct MCV MCH MCHC RDW Plt Count MPV Sodium Potassium Chloride Carbon Dioxide Anion Gap BUN Creatinine Estim Creat Clear Calc Estimated GFR Glucose POC Capillary Glucose 152 H 309 H Calcium Post-procedural complaints: none Patient Feedback: Patient satisfied with anesthetic care.
== END 2024-02-11 12:04 | disposition home or self-care (01) ==
LOC: ANHSURGERY 06:02 → ANH3MEDSUR 12:08
PROVIDERS: Surgery; PCP Internal Medicine; Visit Provider Nurse Practitioner Family
PROC: 0DV44ZZ Restriction of Esophagogastric Junction, Percutaneous Endoscopic Approach (ICD-10-PCS; CPT 43281; principal; 2024-02-10 07:30)
DX: K44.9 Diaphragmatic hernia without obstruction or gangrene (principal); K21.00 Gastro-esophageal reflux disease with esophagitis, without bleeding; K29.70 Gastritis, unspecified, without bleeding; I12.9 Hypertensive chronic kidney disease with stage 1 through stage 4 chronic kidney disease, or unspecified chronic kidney disease; E11.22 Type 2 diabetes mellitus with diabetic chronic kidney disease; N18.30 Chronic kidney disease, stage 3 unspecified; E78.5 Hyperlipidemia, unspecified; F41.9 Anxiety disorder, unspecified; F32.A Depression, unspecified; Z79.84 Long term (current) use of oral hypoglycemic drugs; Z79.4 Long term (current) use of insulin; Z79.85 Long-term (current) use of injectable non-insulin antidiabetic drugs; Z87.891 Personal history of nicotine dependence
CPT/HCPCS: 43281; 36415; 80048; 82948; 85027; 86850; 86900; 86901; A9270; J0690; J1100; J1650; J1815; J2405; J2704; J3010; J7120

== ENCOUNTER 2024-06-23 13:09 | Outpatient (CLI) | payer MEDICARE, SELFPAY ==
--- NOTE | ~2024-06-23 | CT_ITS ---
EXAMINATION: CT soft tissue neck wo/w con DATE: 06/23/2024 13:58 INDICATION: Localized right neck swelling. TECHNIQUE: Computed tomography (CT) of the neck was performed without and with 75 mL Omnipaque-350 in travenous contrast. Automated exposure control and iterative reconstruction technique were employed. The dose-length product was 646.89 mGy-cm. COMPARISON: None FINDINGS: There are likely changes of ocular lens replacement surgeries. There is 0% stenosis of the proximal internal carotid arteries relative to normal distal artery lumen diameters. There are no pat hologically enlarged lymph nodes. The major salivary glands are normal. There is severe cervical spon dylosis. IMPRESSION: 1. No abnormal neck mass or lymphadenopathy. Reviewed, dictated and finalized at location A. NNAISSANCE CREWMEMBER
[2024-06-23 13:42] LABS: Estimated Glomerular Filt Rate 55
== END 2024-06-23 13:10 | disposition home or self-care (01) ==
LOC: MICIMG 13:10
PROVIDERS: PCP Physician Assistant; Visit Provider Physician Assistant
DX: R22.1 Localized swelling, mass and lump, neck (principal)
CPT/HCPCS: 70492; Q9967

== ENCOUNTER 2024-08-23 07:45 | Outpatient (CLI) | payer MEDICARE, SELFPAY ==
--- NOTE | ~2024-08-23 | XR_ITS ---
EXAMINATION: XR barium swallow modified DATE: 08/23/2024 08:59 INDICATION: Throat pain. Throat swelling. TECHNIQUE: The patient was given barium-containing material of multiple consistencies to swallow by t bravo speech pathologist while I performed fluoroscopy. Fluoroscopy exposure time was 1.3 minutes. The n umber of fluoroscopy images saved to the PACS was 1. Dose-area product was 0.8 Gy-cm^2. FINDINGS: There is flash laryngeal penetration there is cleared without aspiration. IMPRESSION: 1. Flash laryngeal penetration that is cleared without aspiration. 2. Please refer to the speech therapy report for recommendations. Reviewed, dictated and finalized at location A. OFFICE CLERK
--- NOTE | 2024-08-23 10:19 | REHSTMBS ---
Assessment and note entered by Kelsey Grace, PAID INTERN Modified Barium Swallow Evaluation ICD-10 Condition Codes (ST) Dysphagia, unspecified R13.1 Feeding Type Recommended Oral Food Consistency Regular, Level 7 Liquid Consistency Thin (0) ST Clinical Summary The above pleasant and cooperative pt was seen for an outpatient modified barium swallow. She was alert & oriented, and able to follow commands. She is currently on a regular diet and reports pain with swallowing stating, it's rubbing against it as she points to the R side of her neck. She denies coughing or choking associated with liquids or solids. She stated she had a CT of her neck which was negative, saw an ENT (WALESKA) who did not see anything , a history of hernia surgery in February of 2024, and has been diagnosed with GERD. Otherwise, she reports being very healthy. Denies h/o CVA or pneumonia. Pt reports she is looking for the reason she has neck pain a/w swallowing. Oral mucosa is normal; natural dentition is in good condition; informal oral peripheral exam revealed lingual and labial structures to be normal. She was able to dry swallow on command and exhibited a strong cough and clear vocal quality. She states that she's had no vocal changes. The patient was positioned (able to stand) for a lateral view and presented with 5cc of thin liquid barium via spoon, pudding consistency barium via a spoon, cracker coated with barium pudding via spoon, and uncontrolled thin liquid barium. This was presented via a cup & straw. Oral preparatory and oral phase symptoms: none. Pharyngeal phase symptoms: within functional limits; trace and very shallow (intermittent) laryngeal penetration occurred (age appropriate) but cleared with no aspiration risk. Esophageal stage symptoms: none. No aspiration occurred. Impressions: Normal swallow Ability No further ST is warranted at this time.
== END 2024-08-23 07:46 | disposition home or self-care (01) ==
PROVIDERS: PCP Internal Medicine; Visit Provider Internal Medicine
DX: R13.13 Dysphagia, pharyngeal phase (principal)
CPT/HCPCS: 92611

== ENCOUNTER 2024-09-21 06:43 | Outpatient (CLI) | payer MEDICARE, SELFPAY ==
--- NOTE | ~2024-09-21 | CT_ITS ---
EXAMINATION: CT cervical spine wo con DATE: 09/21/2024 07:10 INDICATION: Jaw pain TECHNIQUE: Computed tomography (CT) of the cervical spine was performed without intravenous contrast. The dose-length product was 253.45 mGy-cm. Automated exposure control and iterative reconstruction t echnique were employed. COMPARISON: None FINDINGS: Straightening of cervical lordosis. There is degenerative anterolisthesis measuring 1 mm at C2-3. There is disc narrowing at C5-6 and C6-7. Craniovertebral junction is normal. Odontoid process is normal. There is mild-moderate multilevel uncinate hypertrophy, most advanced at C5-6 and C6-7. M astoids are pneumatized. There is mild intracranial atherosclerosis. The following disc levels are sp ecifically discussed: C2-C3: The disc does not extend beyond the endplate margin. There is no uncovertebral joint osteoarth ritis. There is no facet joint osteoarthritis. There is no neural foraminal stenosis. There is no taylor tral canal stenosis. C3-C4: The disc does not extend beyond the endplate margin. There is no uncovertebral joint osteoarth ritis. There is no facet joint osteoarthritis. There is no neural foraminal stenosis. There is no taylor tral canal stenosis. C4-C5: The disc does not extend beyond the endplate margin. There is no uncovertebral joint osteoarth ritis. There is no facet joint osteoarthritis. There is no neural foraminal stenosis. There is no taylor tral canal stenosis. C5-C6: There is mild disc bulging. There is prominent endplate hypertrophy, more so on the left. Ther e is uncinate hypertrophy. There is bilateral neural foraminal stenosis, left greater than right. The re is no central canal stenosis. C6-C7: The disc does not extend beyond the endplate margin. There is mild endplate hypertrophy. There is uncovertebral joint osteoarthritis. There is no facet joint osteoarthritis. There is bilateral ne ural foraminal stenosis. There is no central canal stenosis. C7-T1: The disc does not extend beyond the endplate margin. There is no uncovertebral joint osteoarth ritis. There is no facet joint osteoarthritis. There is no neural foraminal stenosis. There is no taylor tral canal stenosis. IMPRESSION: 1. Moderate cervical spondylosis most pronounced at C5-6 and C6-7 with associated neural foraminal st enosis at these levels. Reviewed, dictated and finalized at location B. TER PLATE IMPRESSION: 1. Moderate cervical spondylosis most pronounced at C5-6 and C6-7 with associat ed neural foraminal stenosis at these levels.
--- OUTSIDE RECORDS SUMMARY | 2024-09-21 06:46 | XMS_ITS | Patient Health Summary ---
Author Organization [facility] Address [address] [place] [address] Care Team Providers Care Yacht Hand Name Role Phone Micaela Santos PA-C Primary Care Provider [phone] Note from [facility],non-owned Affiliates and Associated Physician Practices is amultiple site organization consisting of ambulatory clinics and hospital sitesin [place], [place], [place] and [place]. This disclosure is being madepursuant to the Care Everywhere program and may not contain all information available regarding this patient. Last updated 18.[facility] Allergies * Ojy-Ulc-[id number]-3 Fatty Acids-Bruce(Anaphylaxis) -High Criticality Medications * Be aware that medications may not be up to date on this document. Alwaysverify current medications with the patient. * venlafaxine XR 24hr (EFFEXOR XR) 75 MG capsule(Started 06/23/2017) Take 75 mg by mouth DAILY. * BASAGLAR KWIKPEN (BASAGLAR) pen(Started 04/24/2017) Inject 30 Units subcutaneously. * losartan (COZAAR) 25 MG tablet(Started 05/27/2017) Take 25 mg by mouth DAILY. * atorvastatin (LIPITOR) 80 MG tablet(Started 05/27/2017) Take 80 mg by mouth DAILY. * esomeprazole (NEXIUM) 20 MG capsule(Started 05/27/2017) Take 20 mg by mouth. * cholestyramine light (QUESTRAN LIGHT) 4 GM/DOSE powder(Started 05/27/2017) Take 4 g by mouth BID. * ARIPiprazole (ABILIFY) 10 MG tablet(Started 10/10/2016) Take 10 mg by mouth DAILY. 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 Exudative age-related macular degeneration 11/08 Type 2 diabetes mellitus wit h severe nonproliferative retinopathy and macular edema 11/09/2015 Type 2 diabetes mellitus wit h other diabetic ophthalmic complication 05/24/2015 Type 2 diabetes mellitus wit h mild nonproliferative retinopathy without macular edema 05/24/2015 Type 2 diabetes mellitus wit h diabetic retinopathy and macular edema 05/24/2015 Other visual disturbances 03/24/2014 Serous detachment of retinal pigment epithelium 12/09/2013 Social History Tobacco Use Types Packs/Day Years Used Date Smoking Tobacco: Former Cigarettes Q uit: 09/07/1995 Smokeless Tobacco: Never Alcohol Use Standard Drinks/Week Comments No 0 (1 standard drink = 0.6 oz pur e alcohol) Sex and Gender Information Value Date Recorded Sex Assigned at Not on file Gender Identity Not on file Sexual Orientation Not on file Last Filed Vital Signs Vital Sign Reading Time Taken Comments Blood Pressure 119/48 12/10/2015 10:10 AM CDT Pulse 84 12/10/2015 10:10 AM CDT Temperature 36.7 C (98 F) 12/10/2015 10:10 AM CDT Respiratory Rate 16 12/10/2015 10:10 AM CDT Oxygen Saturation 96% 12/10/2015 10:10 AM CDT Inhaled Oxygen Concentration - - Weight 75.3 kg (166 lb) 12/10/2015 7:40 AM CDT Height 156.2 cm (5' 1.5 ) 12/10/2015 7:40 AM CDT Body Mass Index 30.86 12/10/2015 7:40 AM CDT Procedures * [place] INJECT INTRAVITREAL PHARMCOLOGIC(Performed 11/26/2017) Performed for Retinal edema, 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 (HCC) * W[place] INJECT INTRAVITREAL PHARMCOLOGIC(Performed 11/26/2017) Performed for Retinal edema, 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 (HCC) * OPH OCT TEST SLU(Performed 11/25/2017) Performed for Retinal edema * GLUCOSE ACCUCHECK(Performed 12/10/2015) * GLUCOSE ACCUCHECK(Performed 12/19/2013) Results * W[place] INJECT INTRAVITREAL PHARMCOLOGIC, [place] INJECT INTRAVITREAL PHARMCOLOGIC (11/26/2017 9:23 AM CDT) Narrative Rosa Isela Dalton MD - 11/26/2017 9:23 AM CDT Rosa Isela Dalton MD 11/26/2017 9:23 AM Intravitreal Injection Note Procedure: Intravitreal injections of Avastin, right eye Route of administration: Intravitreal Dosage: 1.25mg Amount administered: 0.05cc Lot number: [id number] Expiration date: 02/03/18 Diagnosis: DME Anesthesia: 4% Lidocaine Prep: 5% Betadine Solution Description of Procedure: After informed consent was obtained, anesthetic and 5% Betadine solution were placed in the right eye. A lid speculum was then placed and the injection was given approximately 4 mm posterior to theinferotemporal limbus. The speculum was then removed and the eye was rinsed with sterile saline. Hand motion visual acuity was present following the injection. The patient tolerated the procedure well with no complications. We reviewed the warning signs of endophthalmitis and the patient was instructed to follow-up as directed, sooner for any concerning visual signs or symptoms. Intravitreal Injection Note Procedure: Intravitreal injections of Avastin, left eye Route of administration: Intravitreal Dosage: 1.25mg Amount administered: 0.05cc Lot number: [id number] Expiration date: 02/03/18 Diagnosis: DME Anesthesia: 4% Lidocaine Prep: 5% Betadine Solution Description of Procedure: After informed consent was obtained, anesthetic and 5% Betadine solution were placed in the left eye. A lid speculum was then placed and the injection was given approximately 4 mm posterior to theinferotemporal limbus. The speculum was then removed and the eye was rinsed with sterile saline. Hand motion visual acuity was present following the injection. The patient tolerated the procedure well with no complications. We reviewed the warning signs of endophthalmitis and the patient was instructed to follow-up as directed, sooner for any concerning visual signs or symptoms. Rosa Isela Dalton MD Rosa Isela Dalton MD PROCEDURE/MINOR SURG ICAL ORDERABLES * OPH OCT TEST [facility]U (11/25/2017 3:22 PM CDT) Anatomical Region Laterality Modality Other 11/25/2017 3:22 PM CDT Rosa Isela Dalton MD OPHTHALMOLOGY SERVIC ES ORDERABLES * (ABNORMAL) GLUCOSE ACCUCHECK (12/10/2015 8:00 AM CDT) Only the most recent of2 resultswithin the time period is included. Glucose, Fingerstick 221(H) 70-115mg/d L mg/dL BRANDO PAGE ([place]) Comment:Marketing Information Analyst: FREDRICK LOPEZ 12/10/2015 8:00 AM CDT Regulo Dale MD LAB - CHEMISTRY [facility] Organization Address City/State/ZIP Co de Phone Number BRANDO BERRYNadya Schwarz[place]) Care Teams Yacht Hand Relationship Specialty Start Date End Date Micaela Santos PA-C PCP - General 05/27/17
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
--- OUTSIDE RECORDS SUMMARY | 2024-09-21 06:46 | XMS_ITS | Encounter Summary ---
Author Organization [facility] Address [address] [place], [place] [address] [place] [address] Phone Care Team Providers Care Fancy Packer Name Role Phone Eliecer Morales MD Primary Care Provider [phone] Reason for Visit * Reason Comments Med Change Request Encounter Details Date Type Department Care Team (Late Contact Info) Description 01/20/[address] [email or web address] [address] [facility] [address] [place] [address] Jefe Chong MD [facility] [address] [place] [address] Social History Tobacco Use Types Packs/Day Years Used Date Smoking Tobacco: Former Alcohol Use Standard Drinks/Week Comments Yes 0 (1 standard drink = 0.6 oz pure alcohol) Alcoholic Drinks/day: Occasional social drink Comments Unknown Sex and Gender Information Value Date Recorded Sex Assigned at Not on file Legal Sex Female 2:49 PM EDT Gender Identity Not on file Sexual Orientation Not on file COVID-19 Exposure Response Date Recorded In the last 10 days, have yo u been in contact with someone who was confirmed or suspected to have Coronavirus/COVID-19? No / Unsure 01/14/2022 10:16 AM CDT documented as of this encounter Plan of Treatment Upcoming Encounters Date Type Department Care Team (Late Contact Info) Description 12/27/2024 10:15 AM CDT Office Visit [email or web address] [address] [facility] [address] [place] [address] Jefe Chong MD [address] [place] [address] documented as of this encounter Visit Diagnoses Not on filedocumented in this encounter Care Teams Fancy Packer Relationship Specialty Start Date End Date Eliecer Morales MD [address] [place] [address] PCP - General Internal Medicine 02/19/23 documented as of this encounter
--- OUTSIDE RECORDS SUMMARY | 2024-09-21 06:46 | XMS_ITS | Encounter Summary ---
Author Organization [facility] [employer] [facility] [employer] [facility] Address [address] [place] [phone] Phone Care Team Providers Care Diamond Sander Name Role Phone Eliecer Morales MD Primary Care Provider [phone] Encounter Details Date Type Department Care Team (Late st Contact Info) Description 08/06/2021 Office Communication [employer] [facility] [address] [place] [address] Jefe Chong MD [address] [place] [phone] Social History Tobacco Use Types Packs/Day [...] on file Sexual Orientation Not on file documented as of this encounter Miscellaneous Notes * Telephone Encounter - Lennie Valentine - 08/06/2021 2:50 PM CST Pt called and stated pcp wants to order a Albutim with lab work. documented in this encounter Plan of Treatment Upcoming Encounters Date Type Department Care Team (Late st Contact Info) Description 12/27/2024 10:15 AM CDT [facility] [employer] [address] [facility] [address] [place] [address] Jefe Chong MD [address] [facility] [address] [place] [phone] documented as of this encounter Visit Diagnoses Not on filedocumented in this encounter Care Teams Diamond Sander Relationship Specialty Start Date End Date Eliecer Morales MD [address] [place] [address] PCP - General Internal Medicine 02/19/23 documented as of this encounter
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
--- OUTSIDE RECORDS SUMMARY | 2024-09-21 06:46 | XMS_ITS | Data Portability ---
Author Organization [facility] [employer], Main Office Address [address] [place] [address] Assessment Encounter Date Assessment Date Assessment LastModified by Organization Details LastModified Time 10/22/2022 10/22/2022 Chest x-ray Weekly blood sugars Upper endoscopy Conservative measures for GERD discussed Follow-up in 6 weeks Continue current therapy [email or web address] Not available 11/02/2022 13:10:04 12/09/2022 12/09/2022 Blood work done by Renal follow-up with me in 4 months [email or web address] Not available 01/18/2023 15:21:54 04/14/2023 04/14/2023 Last A1c 7.1 by home health nurse Urology for her urinary incontinence. She has had recalcitrant GERD so abdomen is get her seen by GI other medical problems discussed medicines to continue in follow-up in 4 months Not available 04/14/2023 10:23:19 07/06/2023 07/06/2023 L-spine CT scan CBC home health for uncontrolled diabetes and physical therapy report back by phone in 48-72 hours with update. Baclofen. Hydrocodone Tylenol for pain Zofran for nausea vomiting [email or web address] Not available 07/06/2023 22:55:46 Plan of Treatment Reminders Order Date Submit Date Provider Last Modified By Organization Details Last Modified Time Details Appointments None recorded. Lab CBC w/ auto diff 2022 023 [facility] (Lab), [address] [place], [address], 14:14:20 CMP, serum or plasma 2022 023 [facility] (Lab), [address] [place], [address], 3 15:19:11 Referral urologist referral 2022 023 [email or web address] Abelardo Irizarry MD, [address] [facility] [address], [place], [address], 4 18:19:47 physical therapist referral 2022 023 [email or web address] [facility], [address] [place], [address], 3 10:55:07 jail referral 2022 023 [email or web address] [facility], [address] [place], [address], 4 18:19:48 Procedures upper endoscopy procedure (EGD) (PROC) 2022 023 dunia Davis MD, [address] [facility], [address], [place], [address], 3 09:29:04 upper endoscopy procedure (EGD) (PROC) 2022 023 agnes Romero MD, [address] [facility] [address], [place], [address], 4 08:54:42 Surgeries None recorded. Imaging XR, chest, 2 view 2022 023 [facility] ([facility] Sched[facility]), [address] [place], [address], 3 13:04:04 CT, lumbar spine, w/o contrast 2022 023 [facility] ([facility] Scheduling), [address] [place], [address], 3 14:29:09 Medication Orders Ozempic 0.25 mg or 0.5 mg (2 mg/1.5 mL) subcutaneou s pen injector 2022 023 [email or web address] [facility], [address] [place] [address], [address], 3 10:05:25 Basaglar KwikPen U-100 Insulin 100 unit/mL (3 mL) subcutaneou s 2022 023 [email or web address] [facility], [address] [place], [address], 3 12:10:36 Patient TargetsNo targets recorded. Patient InstructionsNo instructions recorded. Reason for Referral Urologist Referral for Urina ry incontinence Referring Physician: Eliecer Morales, Internal Medicine, Encounter Date: 04/14/2023 Physical Therapist Referral for Fall Referring Physician: Eliecer Morales, Internal Medicine, Encounter Date: 07/06/2023 Senior Living Referral for Uncontrolled type 2 diabetes mellitus Referring Physician: Eliecer Morales, Internal Medicine, Encounter Date: 07/06/2023 Results Created Date Observation Date Name Description Value Unit Range Abnormal Flag Note LastModifiedBy Organization Detail LastModifiedTime 07/06/2007/06/2023 CBC/C OMPLE TE BLD COUNT W/DIF F white blood cells 8.6 x10'3 /uL 4.2-10 .8 Not Available [facility] (Lab) [address] [place], [address], 07/06/2023 14:14:20 07/06/20 23 07/06/2023 CBC/C OMPLE TE BLD COUNT W/DIF F red blood cells 3.12 x10'6 /uL 3.80-5 .20 low Not Available [facility] (Lab) [address] [place], [address], 07/06/2023 14:14:20 07/06/20 23 07/06/2023 CBC/C OMPLE TE BLD COUNT W/DIF F hemoglobin 9.4 g/dL 12.0-1 5.6 low Not Available [facility] (Lab) [address] [place], [address], 07/06/2023 14:14:20 07/06/20 23 07/06/2023 CBC/C OMPLE TE BLD COUNT W/DIF F hematocrit 30.1 % 35.7-4 5.7 low Not Available [facility] (Lab) [address] [facility] [place], [address], 07/06/2023 14:14:20 07/06/20 23 07/06/2023 CBC/C OMPLE TE BLD COUNT W/DIF F mean red cell volume 96.5 fL 82.0-9 9.0 Not Available [facility] (Lab) [address] [place], [address], 07/06/2023 14:14:20 07/06/20 23 07/06/2023 CBC/C OMPLE TE BLD COUNT W/DIF F mean red cell hemoglobin 30.1 pg 27.0-3 3.0 Not Available [facility] (Lab) [address] [place], [address], 07/06/2023 14:14:20 07/06/20 23 07/06/2023 CBC/C OMPLE TE BLD COUNT W/DIF F mean RBC HGB concentratio n 31.2 g/dL 31.0-3 6.0 Not Available [facility] (Lab) [address] [place], [address], 07/06/2023 14:14:20 07/06/20 23 07/06/2023 CBC/C OMPLE TE BLD COUNT W/DIF F red cell distribution width 14.3 % 11.8-1 5.5 Not Available [facility] (Lab) [address] [place], [address], 07/06/2023 14:14:20 07/06/20 07/06/2023 CBC/C OMPLE TE BLD COUNT W/DIF F platelets 355 x10'3 /uL 150-40 0 Not Available [facility] (Lab) [address] [place], [address], 07/06/2023 14:14:20 07/06/20 23 07/06/2023 CBC/C OMPLE TE BLD COUNT W/DIF F mean platelet volume 12.6 fL 9.0-12 .4 high Not Available [facility] (Lab) [address] [place], [address], 07/06/2023 14:14:20 07/06/2007/06/2023 CBC/C OMPLE TE BLD COUNT W/DIF F neutrophils 69.5 % 39.0-7 2.0 Not Available [facility] (Lab) [address] [place], [address], 07/06/2023 14:14:20 07/06/20 23 07/06/2023 CBC/C OMPLE TE BLD COUNT W/DIF F lymphocytes 22.2 % 16.0-4 7.0 Not Available [facility] (Lab) [address] [place], [address], 07/06/2023 14:14:20 07/06/2007/06/2023 CBC/C OMPLE TE BLD COUNT W/DIF F monocytes 4.9 % 5.0-12 .0 low Not Available [facility] (Lab) [address] [place], [address], 07/06/2023 14:14:20 07/06/2007/06/2023 CBC/C OMPLE TE BLD COUNT W/DIF F eosinophils 2.6 % 1.0-7. 0 Not Available [facility] (Lab) [address] [place], [address], 07/06/2023 14:14:20 07/06/2007/06/2023 CBC/C OMPLE TE BLD COUNT W/DIF F basophils 0.3 % 0.0-2. 0 Not Available [facility] (Lab) [address] [place], [address], 07/06/2023 14:14:20 07/06/20 23 07/06/2023 CBC/C OMPLE TE BLD COUNT W/DIF F immature granulocytes 0.5 % 0.00-0 .50 Not Available [facility] (Lab) [address] [place], [address], 07/06/2023 14:14:20 07/06/20 23 07/06/2023 CBC/C OMPLE TE BLD COUNT W/DIF F neutrophils, absolute count 5.97 x10'3 /uL 1.5-8. 0 Not Available [facility] (Lab) [address] [place], [address], 07/06/2023 14:14:20 07/06/20 23 07/06/2023 CBC/C OMPLE TE BLD COUNT W/DIF F lymphocytes, absolute count 1.91 x10'3 /uL 1.07-3 .43 Not Available [facility] (Lab) [address] [place], [address], 07/06/2023 14:14:20 07/06/20 23 07/06/2023 CBC/C OMPLE TE BLD COUNT W/DIF F monocytes, absolute count 0.42 x10'3 /uL 0.29-0 .99 Not Available [facility] (Lab) [address] [place], [address], 07/06/2023 14:14:20 07/06/20 23 07/06/2023 CBC/C OMPLE TE BLD COUNT W/DIF F eosinophils, absolute count 0.22 x10'3 /uL 0.02-0 .53 Not Available [facility] (Lab) [address] [place], [address], 07/06/2023 14:14:20 07/06/20 23 07/06/2023 CBC/C OMPLE TE BLD COUNT W/DIF F basophils, absolute count 0.03 x10'3 /uL 0.01-0 .08 Not Available [facility] (Lab) [address] [place], [address], 07/06/2023 14:14:20 07/06/20 23 07/06/2023 CBC/C OMPLE TE BLD COUNT W/DIF F immature granulocytes ,absolute 0.04 x10'3 /uL 0.00-0 .05 Not Available [facility] (Lab) [address] [place], [address], 07/06/2023 14:14:20 07/06/20 23 07/06/2023 CBC/C OMPLE TE BLD COUNT W/DIF F nucleated red blood cells 0.0 % -0 Not Available [facility] (Lab) [address] [place], [address], 07/06/2023 14:14:20 07/06/20 23 07/06/2023 CBC/C OMPLE TE BLD COUNT W/DIF F NRBC# 0.00 x10'3 /uL Not Available [facility] (Lab) [address] [place], [address], 07/06/2023 14:14:20 07/06/20 23 07/06/2023 COMPR EHENS PRINCE METAB OLIC PANEL sodium 140 mmol/ L 137-14 5 Not Available [facility] (Lab) [address] [place], [address], 07/06/2023 15:19:11 07/06/20 23 07/06/2023 COMPR EHENS PRINCE METAB OLIC PANEL potassium 4.6 mmol/ L 3.5-5. 1 Not Available [facility] (Lab) [address] [place], [address], 07/06/2023 15:19:11 07/06/20 23 07/06/2023 COMPR EHENS PRINCE METAB OLIC PANEL chloride 104 mmol/ L 98-107 Not Available [facility] (Lab) [address] [place], [address], 07/06/2023 15:19:11 07/06/20 23 07/06/2023 COMPR EHENS PRINCE METAB OLIC PANEL carbon dioxide 27 mmol/ L 22-30 Not Available [facility] (Lab) [address] [place], [address], 07/06/2023 15:19:11 07/06/20 23 07/06/2023 COMPR EHENS PRINCE METAB OLIC PANEL anion gap 13.6 mmol/ L 14-22 low Not Available [facility] (Lab) [address] [place], [address], 07/06/2023 15:19:11 07/06/20 23 07/06/2023 COMPR EHENS PRINCE METAB OLIC PANEL glucose 311 mg/dL 70-99 high Not Available [facility] (Lab) [address] [place], [address], 07/06/2023 15:19:11 07/06/20 23 07/06/2023 COMPR EHENS PRINCE METAB OLIC PANEL BUN 19 mg/dL 8-19 Not Available [facility] (Lab) [address] [place], [address], 07/06/2023 15:19:11 07/06/20 23 07/06/2023 COMPR EHENS PRINCE METAB OLIC PANEL creatinine 1.23 mg/dL 0.66-1 .25 Not Available [facility] (Lab) [address] [place], [address], 07/06/2023 15:19:11 07/06/20 23 07/06/2023 COMPR EHENS PRINCE METAB OLIC PANEL GFR 43 Refer ence Range : [place] GFR Healt hy Adult : >60 mL/mi n/1.7 3 m2 Chron ic Kidne y Disea se: 15-60 mL/mi n/1.7 3 m2 Kidne y Failu re: <15/m L/min /1.73 m2 www.n iddk. nih.g ov The MDRD study equat ion has not been valid ated in child ken <18 years of age; pregn ant women ; the elder ly >85 years of age; or in some racia l or ethni c subgr oups, such as Hispa nics. Outsi de the valid ated brad eters , estim ated GFR is less accur ate, requi ring clini eyd judgm ent on a case- by-ca se basis . Clini edy inter preta tion for other races and ages must be made by the clini cheri. The MDRD study equat ion has not been valid ated for the evalu ation of serum creat inine relat ed to nutri nikolay l statu s or medic ation usage . For perso ns <18 years of age, a pedia tric GFR calcu lator is avail able on the [facility] websi te: https ://carlito mojica.maikel coronel.o apryl/pr surinderess reaganal s/kdo qi/gf r_cal culat or Not Available [facility] (Lab) [address] [place], [address], 07/06/2023 15:19:11 07/06/20 23 07/06/2023 COMPR EHENS PRINCE METAB OLIC PANEL alkaline phosphatase 108 U/L 38-126 Not Available [facility] (Lab) [address] [place], [address], 07/06/2023 15:19:11 07/06/20 23 07/06/2023 COMPR EHENS PRINCE METAB OLIC PANEL alanine aminotransfe rase 28 U/L 0-35 Not Available [facility] (Lab) [address] [place], [address], 07/06/2023 15:19:11 07/06/20 23 07/06/2023 COMPR EHENS PRINCE METAB OLIC PANEL aspartate aminotransfe rase 30 U/L 15-37 Not Available [facility] (Lab) [address] [place], [address], 07/06/2023 15:19:11 07/06/20 23 07/06/2023 COMPR EHENS PRINCE METAB OLIC PANEL bilirubin, total 0.50 mg/dL 0.20-1 .30 Not Available [facility] (Lab) [address] [place], [address], 07/06/2023 15:19:11 07/06/20 23 07/06/2023 COMPR EHENS PRINCE METAB OLIC PANEL calcium 10.0 mg/dL 8.4-10 .2 Not Available [facility] (Lab) [address] [place], [address], 07/06/2023 15:19:11 07/06/20 23 07/06/2023 COMPR EHENS PRINCE METAB OLIC PANEL total protein 7.2 g/dL 6.3-8. 2 Not Available [facility] (Lab) [address] [place], [address], 07/06/2023 15:19:11 07/06/20 23 07/06/2023 COMPR EHENS PRINCE METAB OLIC PANEL albumin 3.9 g/dL 3.0-4. 4 Not Available [facility] (Lab) [address] [place], [address], 07/06/2023 15:19:11 07/06/20 23 07/06/2023 COMPR EHENS PRINCE METAB OLIC PANEL globulin 3.3 g/dL 2.6-4. 2 Not Available [facility] (Lab) [address] [place], [address], 07/06/2023 15:19:11 07/06/20 23 07/06/2023 COMPR EHENS PRINCE METAB OLIC PANEL A/G ratio 1.2 ratio 1.0-2. 0 Not Available [facility] (Lab) [address], [place], [address], 07/06/2023 15:19:11 09/02/19 23 09/02/2022 SPECT , myoca rdial perfu danya, multi ple [facility] [address], [place] [address] [phone] Patien t Name: FLORES GENA Access ion #: [id number] Sex: F : 1949 7 Locati on: RAD Attend ing Physic olamide: BATSHEVA MORALES Orderi ng Physic olamide: BATSHEVA MORALES Exam Date: 023 6:35 AM Exam Name: NM MYOCAR D SPECT MULT Admitt ing Diagno sis(es ): RADIOL OGY REPORT - FINAL EXAM: NM MYOCAR D SPECT MULT HISTOR Y: CHEST PAIN diabet es hypert ension hyperc holest erolem ia, shortn ess of breath COMPAR KARIME: None. TECHNI QUE: REST STUDY: 10.0 mCi of Techne tium 99m-Te trofos min. Lexisc an STUDY: 25.0 mCi of Techne tium 99m-Te trofos min. The patien t was stress ed pharma cologi geneva utiliz ing 0.4 mg Lexisc an. Cardia c-gate d tomogr aphic images of the heart were obtain ed in the short and long axis projec tions. Images were obtain ed at rest and immedi ately follow ing admini strati on of Lexisc an. Lexisc an and rest images were perfor med on the same day. Page 1 of 2 [facility] Patien t Name: FLORES GENA Access ion #: [id number] Sex: F : 1949 7 Exam Date: 023 6:35 AM Exam Name: NM MYOCAR D SPECT MULT Admitt ing Diagno sis(es ): FINDIN GS: No perfus ion defect s are identi fied on the Lexisc an or rest images . Wall motion is normal . Left ventri cular ejecti on fracti on is 95% IMPRES DANYA: No eviden ce of myocar dial infarc t or Lexisc an ischem ia. Normal wall motion and LVEF. Create d and electr onical ly signed by: William neil MD Signed Date: 023 10:28 AM (CT) Dictat ed by: William neil MD DD: 023 10:28 AM (CT) DT: 023 10:28 AM (CT) Page 2 of 2 [id number] [facility] (Imaging) [address] [place] [address], [address], 10/08/2022 01:51:52 10/29/19 23 10/28/2022 XR, chest , 2 view [facility] [address] [address] [phone] Patien t Name: GENA FLORES Access ion #: [id number] Sex: F : 1949 0 Locati on: RAD Attend ing Physic olamide: BATSHEVA MORALES Orderi Physic olamide: BATSHEVA MORALES Exam Date: 023 8:19 AM Exam Name: XR CHEST 2V Admitt ing Diagno sis(es ): RADIOL OGY REPORT - FINAL EXAM: XR CHEST 2V HISTOR Y: COUGH COMPAR KARIME: 2022 TECHNI QUE: Two views of the chest were perfor med. FINDIN GS: No pneumo thorax , consol idativ e infilt rates, pleura l effusi ons, or pulmon suzette edema. The heart is not enlarg ed. IMPRES DANYA: Unrema rkable 2 view chest. Page 1 of 2 [facility] Patien t Name: GENA FLORES Access ion #: [id number] Sex: F : 1949 0 Exam Date: 8:19 AM Exam Name: XR CHEST 2V Admitt ing Diagno sis(es ): Create d and electr onical ly signed by: William neil MD Signed Date: 12:01 PM (CT) Dictat ed by: William neil MD DD: 12:01 PM (CT) DT: 12:01 PM (CT) Page 2 of 2 [email or web address] (Imaging) [address] [place], [address], 11/04/2022 11:45:58 07/06/2007/06/2023 CT, lumba r spine , w/o contr ast [facility] [address] [place] [address] Patien t Name: SANDIP GENA Hummel ion #: [id number] Sex: F : 1949 6 Dictat ed By: Damon Serrano Attend ing Physic olamide: BATSHEVA MORALES [facility] Physic olamide: BATSHEVA MORALES Exam Date: 2022 12:38 PM Exam Name: CT L SPINE WO Admitt ing Diagno sis(es ): CT lumbar spine withou t contra st Date: 2022 12:38 PM SPANISH INSTRUCTOR Histor y: Pain Compar karime: CT pelvis dated 2022 Techni que: Multip le axial CT images of the spine were obtain ed using bone algori thm. Axial and ewing l reform atting was done. Bone and soft tissue window s were review ed. Radiat ion dose: CTDIvo l 34 mGy, DLP 1234 mGy*cm . Findin gs: No CT eviden ce of defini te acute fractu re, spinal disloc ation, or signif icant appear ing acute sublux ation is seen. The visual ized parasp inal soft tissue s are grossl y unrema rkable . At the T12-L1 level, there is no eviden ce of centra l spinal canal or neurof oramin al stenos is. At the L1-L2 level, there is no eviden ce of centra l spinal canal or neurof oramin al stenos is. At the L2-L3 level, there is no eviden ce of centra l spinal canal or neurof oramin al stenos is. At the L3-L4 level, there is no eviden ce of centra l spinal canal or neurof oramin al stenos is. At the L4-L5 level, there is no eviden ce of centra l spinal canal or Page 1 [facility] [address] [address] Patien t Name: GENA FLORES ion #: [id number] Sex: F : 1949 6 Dictat ed By: Damon Serrano Attend ing Physic olamide: TAMANNA CROWLEY [facility] Physic olamide: BATSHEVA MORALES Exam Date: 2022 12:38 PM Exam Name: CT L SPINE WO Admitt ing Diagno sis(es ): neurof oramin al stenos is. At the L5-S1 level, there is no eviden ce of centra l spinal canal or neurof oramin al stenos is. Stable hemato ma in the senior project architect ior pelvic /lower abdomi nal body wall measur ing 9 cm. Impres danya: No defini te CT eviden ce of acute fractu re or disloc ation of the bony lumbar spine. Stable hemato ma in the senior project architect ior pelvic /lower abdomi nal body wall measur ing [address] scans at this medica l facili ty are perfor med using dose modula tion techni ques as approp riate to a perfor med exam includ ing the follow ing: Automa avelina exposu re contro l was utiliz ed; adjust ment of the MA and/or KV accord ing to patien t size; and use of iterat prince recons tructi on techni que. Electr onical ly Signed by: Damon Serrano at 2022 13:27: 48 PM Page 2 [email or web address] [facility] (Imaging) [address], [place], [address], 07/06/2023 17:15:45 04/07/20 24 04/07/2024 DEXA, axial skele ton [facility] [address] [facility] [address], [place] [address] [phone] Paticharles t Name: GENA FLORES ion #: [id number] Sex: F : 1949 7 Dictat ed By: Eliot Yanes Attend ing Physic olamide: BATSHEVA MORALES [facility] Physic olamide: BATSHEVA MORALES Exam Date: 2023 09:39 AM Exam Name: XR DEXA-H IPS PELVIS SPINE Admitt ing Diagno sis(es ): INDICA TION: 73 years old, Female ; asympt omatic menopa usal. Postme nopaus al osteop orosis . DEXA SCAN: BONE DENSIT Y REPORT : AP SPINE (L1-L4 ) : T Score: -1.3 LEFT HIP TOTAL : T Score: -2.2 RT HIP TOTAL : T Score: -2.1 TOTAL BILAT HIP AVG: T Score: -2.2 IMPRES DANYA: Osteop enia lumbar spine and bilate ral hips ------ ------ ------ ------ ------ ------ ------ ------ ----- *FRAX versio n 3.08. Fractu re probab ility calcul ated for an untrea avelina patien t. Fractu re probab ility may be lower if the patien t has receiv ed treatm ent. T-scor e: compar karime by corinne kirk (MARIA FERNANDA) to a young adult popula tionpallavi for sex and ethnic ity (used for postme nopaus al women and men >50 years) and classi fied by WHO criter ia. -1.0: normal <-1.0 to >-2.5: osteop enia Page 1 [facility] [address] [place] [address] Patien t Name: SANDIP GENA Access ion #: [id number] Sex: F : 1949 7 Dictat ed By: Eliot Yanes Attend ing Physic olamide: TAMANNA CROWLEY Physic olamide: BATSHEVA MORALES Exam Date: 2023 09:39 AM Exam Name: XR DEXA-H IPS PELVIS SPINE Admitt ing Diagno sis(es ): -2.5: osteop orosis -2.5 plus fragil ity fractu re: severe osteop orosis Z-scor e: compar ed by SD to an age, sex, and ethnic ity popula tion (used for premen opausa l women, men <50 years, and childr en instea d of T-scor e WHO criter ia 4) <-2.0: below expect ed range/ low bone densit y for age, and a cause should be sought Electr onical ly Signed by: Eliot Yanes at 2023 10:27: 24 AM Page 2 [email or web address] [facility] (Imaging) [address] [place], [address], 04/25/2024 13:14:03 04/07/20 24 04/07/2024 scree maria del carmen breshahrzad t mila, bilat [facility] [address] 8[address] Patien t Name: FLORES GENA Access ion #: [id number] Sex: F : 1949 7 Dictat ed By: Adrianna Lauren Attend ing Physic olamide: BATSHEVA MORALES Physic olamide: BATSHEVA MORALES Exam Date: 2023 09:18 AM Exam Name: MG SCRN BREAST MILA BILAT Admitt ing Diagno sis(es ): SCREEN ING MAMMOG CANDACE WITH TOMOSY NTHESI S: REASON FOR EXAM: screen ing mammog candace COMPAR KARIME: MG DIG MAMMO UNILAT DIAG RT on DOS: 2, SCREEN ING BREAST MILA, BILAT 3D on DOS: , DIGITA L MAMM, BILAT SCREEN ING 2D on DOS: TECHNI QUE: Bilate ral CC and MLO views obtain ed. Images were obtain ed using a Digita l Tomosy nthesi s Unit. Standa rd 2D and 3D Tomosy nthesi s images were review ed. FINDIN GS: BREAST COMPOS ITION: C - The bilate ral breast s are hetero geneou sly dense, which may obscur e small masses . In the right breast , no asymme trical parenc hymal patter n, buzz ectura l distor tion, pleomo rphic microc alcifi cation s or masses . In the left breast , no asymme trical parenc hymal patter n, buzz ectura l distor tion, pleomo rphic microc alcifi cation s or masses . IMPRES DANYA: No findin gs of malign joyce. FOLLOW UP RECOMM ENDATI ON: Recomm end annual mammog candace. BIRADS : 1 - Negati ve Electr onical ly Signed by: Adrianna Lauren at 2023 10:41: 52 AM Page [address] [address] Patien t Name: GENA FLORES Estephanie ion #: [id number] Sex: F : 1949 7 Dictat ed By: Adrianna Lauren Attend ing Physic olamide: TAMANNA CROWLEY Orderi Physic olamide: BATSHEVA MORALES Exam Date: 2023 09:18 AM Exam Name: MG SCRN BREAST MILA BILAT Admitt ing Diagno sis(es ): Page 2 [email or web address] [facility] (Imaging) [address] [place] [address], [facility], 04/25/2024 13:14:04 Result Notes None recorded. Problems Name Problem SNOMED Code Status Onset Date Resolution Date Notes Provider Name and Address Organization Details Recorded Time Herpes zoster with nervous system complica tion 580782287 Active Not Available [facility] 3 07:22:45 Disorder of shoulder 699559043 Completed Not Available [facility] 3 01:34:01 Mammogra phy abnormal 414196367 Active 2021 Not Available [facility] 3 07:22:45 Anxiety state 351017944 Active Not Available [facility] 3 07:22:45 Gastroes ophageal reflux disease 543833739 Active 2021 Not Available [facility] 3 07:22:45 Screenin g mammogra phy Active 2021 Not Available [facility] 3 07:22:46 Fracture of face bones Completed Not Available [facility] 3 01:34:02 Rib pain 095902450 Completed Not Available [facility] 3 01:34:02 Chest pain 62721778 Active 2021 Not Available [facility] 3 07:22:46 Knee pain Completed Not Available [facility] 3 01:34:02 Osteopen ia 206679246 Active 2021May 2021 BMD -1.9 Not Available [facility] 3 07:22:46 Type 2 diabetes mellitus without complica tion [id number] Active Not Available [facility] 3 07:22:46 Dyslipid emia 053832788 Active 2018 Not Available [facility] 3 07:22:46 Acute urinary tract infectio n 990581150 Active 2022 Not Available [facility] 3 07:22:46 Type 2 diabetes mellitus 75351724 Active 2021 Not Available [facility] 3 07:22:46 Shoulder pain 47815743 Completed 201808/12/2019 Not Available [facility] 3 01:34:03 Herpes zoster 2558336 Completed Not Available [facility] 3 01:34:03 Cough 13567359 Active 2022 Not Available [facility] 3 07:22:46 Upper respirat ory infectio n 48663732 Active 2021 Not Available [facility] 3 07:22:46 Acute upper respirat ory infectio n 93626436 Active 2022 Not Available [facility] 3 07:22:46 [facility] hyperten danya 92345396 Active 2018 Not Available [facility] 3 07:22:46 Diabetes mellitus 29438720 Active Not Available [facility] 3 07:22:46 COVID-19 876387158 Active 2021 Not Available [facility] 3 07:22:46 Urinary incontin ence 383018944 Active 2022 Not Available [facility] 3 07:22:45 Gastroes ophageal reflux disease without esophagi tis 187450896 Active 2022 Not Available [facility] 3 07:22:46 Uncontro lled type 2 diabetes mellitus 309974981 Active 2022 Not Available [facility] 3 07:22:46 Superfic ial thrombop hlebitis 1797919 Active 2022 Not Available [facility] 3 07:22:46 Nausea and vomiting 62260231 Active 2022 Not Available [facility] 3 07:22:45 Notes:Some problems listed i n Documents: #[id number], #[id number], #[id number], #[id number], #[id number], #[id number], #[id number], #[id number], #[id number], #[id number] could not be added to this patient's chart. Please review these documents and add these problems to the patient's chart manually as needed. Problem Notes None recorded. Procedures Surgical History Date Name Laterality Status Provider Name and Address Organization Details Recorded Time 05/28/20 Date of Last Colonoscopy completed Not Available [facility] 10/08/2022 01:20:40 05/28/20 21 Colonoscopy completed Not Available [facility] 10/09/19 01:20:49 05/24/20 21 Most Recent Bone Density completed Not Available [facility] 10/08/2022 01:20:41 07/13/20 Eye Surgery completed Not Available [facility] 10/09/19 01:20:49 ligation of fallopian tube completed Not Available [facility] 10/08/2022 01:20:49 Orthopedic Surgery completed Not Available [facility] 10/08/2022 01:20:49 Imaging Results Imaging Date Name Status LastModified by Organiz ation Details LastModified Time 09/02/2022 SPECT, myocardial perfusion, multiple completed [id number] [facility] (Imaging) [address] [place], [address], 10/08/2022 01:51:52 10/28/2022 XR, chest, 2 view completed [email or web address] [facility] (Imaging) [address] [place], [address], 11/04/2022 11:45:58 07/06/2023 CT, lumbar spine, w/o contrast completed [email or web address] [facility] (Imaging) [address] [place], [address], 07/06/2023 17:15:45 04/07/2024 DEXA, axial skeleton completed [email or web address] [facility] (Imaging) [address] [place], [address], 04/25/2024 13:14:03 04/07/2024 screening breast mila, bilat completed [email or web address] [facility] (Imaging) [address] [place], [address], 04/25/2024 13:14:04 Procedure Notes None recorded. Medical Equipment None Reported. Allergies Allergen ID Allergen Name Allergen Category Reaction Reaction Severity Criticality Documentation Date Start Date Code Code System Note Provider Name and Address Organization Details Recorded Time 2927 salmon oil food,medi cation anaphylax is moderate Not available 10/08/2022 79045 RxNorm Not Available [facility] 01:51:00 2928 latex environme nt,medica tion rash moderate Not available 10/08/2022 78646 91 RxNorm Not Available [facility] 01:51:00 Medications Name Sig Start Date Stop Date Status Note LastModified by Organization Details LastModified Time losartan 50 mg tablet 07/23 completed Not Available Not Available Not Available amoxicill in 500 mg capsule Take 1 capsule 3 times a day by oral route for 7 days. active Not Available Not Available No t Available buspirone 5 mg tablet 01/04 completed Not Available Not Available Not Available metformin 500 mg tablet TAKE ONE TABLET BY MOUTH TWICE DAILY 07/23 completed Not Available Not Available Not Available atorvasta tin 80 mg tablet Take 1 tablet every day by oral route for 30 days. 09/21 completed Not Available Not Available Not Available nystatin 100,000 unit/mL oral suspensio n swish and swallow 5cc TID x 1wk active Not Available Not Available No t Available venlafaxi ne ER 75 mg capsule,e xtended release 24 hr 07/23 completed Not Available Not Available Not Available doxycycli ne hyclate 100 mg capsule Take 1 capsule twice a day by oral route for 10 days. 10/22 completed Not Available Not Available Not Available triamcino lone acetonide 0.5 % topical cream 07/23 completed Not Available Not Available Not Available oxybutyni n chloride ER 10 mg tablet,ex tended release 24 hr TAKE 1 TABLET BY MOUTH ONCE DAILY active Not Available Not Available No t Available azithromy luis a 250 mg tablet TAKE 2 TABLETS (500 MG) BY ORAL ROUTE ONCE DAILY FOR 1 DAY THEN 1 TABLET (250 MG) BY ORAL ROUTE ONCE DAILY FOR 4 DAYS 07/15 completed Not Available Not Available Not Available ibuprofen 800 mg tablet TK 1 T PO Q 8 H PRF PAIN 12/10 completed Not Available Not Available Not Available benzonata te 200 mg capsule TAKE 1 CAPSULE BY MOUTH THREE TIMES DAILY FOR 7 DAYS 08/08 completed Not Available Not Available Not Available ranitidin e 300 mg tablet TAKE ONE TABLET BY MOUTH ONCE DAILY 07/23 completed Not Available Not Available Not Available hydrocodo ne 5 mg-acetam inophen 325 mg tablet TAKE 1 TABLET BY MOUTH EVERY 6 HOURS NEEDED FOR PAIN - MODERATE active Not Available Not Available No t Available sucralfat e 1 gram tablet TAKE 1 TABLET BY MOUTH 4 TIMES DAILY BEFORE MEAL(S) AND AT BEDTIME 04/14 completed Not Available Not Available Not Available ondansetr on HCl 4 mg tablet TAKE 2 TABLETS BY MOUTH THREE TIMES DAILY NEEDED active Not Available Not Available No t Available glipizide 10 mg tablet TAKE ONE TABLET BY MOUTH TWICE DAILY 07/23 completed Not Available Not Available Not Available prednison e 20 mg tablet Take 2 tablets every day by oral route for 5 days. 01/28 completed Not Available Not Available Not Available lovastati n 40 mg tablet Take 1 tablet every day by oral route. 07/23 completed Not Available Not Available Not Available prednison e 5 mg tablet 01/28 completed Not Available Not Available Not Available venlafaxi ne ER 150 mg capsule,e xtended release 24 hr Take 1 capsule every day by oral route for 90 days. 11/12 completed Not Available Not Available Not Available amlodipin e 2.5 mg tablet TAKE 1 TABLET BY MOUTH AT BEDTIME active Not Available Not Available No t Available metronida zole 500 mg tablet 07/23 completed Not Available Not Available Not Available ciproflox acin 250 mg tablet Take 1 tablet twice a day by oral route for 7 days. 11/12 completed Not Available Not Available Not Available Detrol LA 4 mg capsule,e xtended release TAKE 1 CAPSULE BY MOUTH ONCE DAILY 02/14 completed Not Available Not Available Not Available ciproflox acin 500 mg tablet 07/23 completed Not Available Not Available Not Available peg-elect rolyte solution 420 gram oral solution TAKE ONE-HALF BY MOUTH AT 5 AM ON 01/15 AND ONE-HALF AT 5 AM ON 01/16 active Not Available Not Available No t Available omeprazol e 40 mg capsule,d elayed release Take 1 capsule every day by oral route. 11/21 completed Not Available Not Available Not Available tramadol 50 mg tablet TAKE 1 TABLET BY MOUTH EVERY 6 TO 8 HOURS NEEDED 07/15 completed Not Available Not Available Not Available bupropion HCl SR 100 mg tablet,12 hr sustained -release 07/23 completed Not Available Not Available Not Available glimepiri de 1 mg tablet TAKE 1 TABLET BY MOUTH ONCE DAILY IN THE MORNING active Not Available Not Available No t Available oxycodone -acetamin ophen 5 mg-325 mg tablet 07/03 completed Not Available Not Available Not Available propranol ol 10 mg tablet 07/23 completed Not Available Not Available Not Available amoxicill in 875 mg tablet 07/23 completed Not Available Not Available Not Available famotidin e 20 mg tablet Take 1 tablet every day by oral route. 06/[address] Morales switched meds to sucralfa te Not Available Not Available Not Available OneTouch Ultra Test strips USE 1 STRIP TO CHECK GLUCOSE 4 TIMES DAILY active Not Available Not Available No t Available baclofen 10 mg tablet TAKE 1 TABLET BY MOUTH EVERY 8 HOURS NEEDED FOR MUSCLE SPASM active Not Available Not Available No t Available gemfibroz il 600 mg tablet TAKE 1 TABLET BY MOUTH ONCE DAILY IN THE MORNING AND 1 TAB IN THE EVENING active Not Available Not Available No t Available pantopraz ole 40 mg tablet,de layed release TAKE 1 TABLET BY MOUTH ONCE DAILY active Not Available Not Available No t Available metformin 1,000 mg tablet TAKE 1 TABLET BY MOUTH TWICE DAILY DIRECTED active Not Available Not Available No t Available buspirone 10 mg tablet 10/18 completed Not Available Not Available Not Available losartan 25 mg tablet TAKE 1 TABLET BY MOUTH ONCE DAILY active Not Available Not Available No t Available etodolac 400 mg tablet Take 1 tablet twice a day by oral route for 30 days. 02/10 completed Not Available Not Available Not Available bisacodyl 5 mg tablet,de layed release TAKE 6 TABLETS BY MOUTH AT 8 AM ON 01/15 completed Not Available Not Available Not Available levofloxa luis a 500 mg tablet 04/23 completed Not Available Not Available Not Available methylpre dnisolone 4 mg tablets in a dose pack TAKE BY MOUTH DIRECTED ON INSIDE OF PACKAGE 07/03 completed Not Available Not Available Not Available Naprosyn 500 mg tablet Take 1 tablet twice a day by oral route. 07/23 completed Not Available Not Available Not Available ketoconaz ole 2 % topical cream APPLY in between the toes daily as needed active Not Available Not Available No t Available Zoloft 25 mg tablet Take 1 tablet by oral route. 10/22 completed Not Available Not Available Not Available cefdinir 300 mg capsule TAKE 1 CAPSULE BY MOUTH TWICE DAILY FOR 7 DAYS active Not Available Not Available No t Available losartan 100 mg tablet take one tablet daily 11/26 completed Not Available Not Available Not Available metformin ER 500 mg tablet,ex tended release 24 hr Take 2 tablets twice a day by oral route. 04/14 completed Not Available Not Available Not Available sertralin e 50 mg tablet Take 1 tablet by mouth once daily 2022 active Not Available Not Available Not Avai lable doxycycli ne hyclate 100 mg tablet TAKE 1 TABLET BY MOUTH TWICE DAILY FOR 7 DAYS active Not Available Not Available No t Available amoxicill in 875 mg-potass ium clavulana te 125 mg tablet Take 1 tablet every 12 hours by oral route. 11/12 completed Not Available Not Available Not Available tobramyci n 0.3 %-dexamet hasone 0.1 % eye drops,karlie pension INSTILL 1 DROP INTO RIGHT EYE 4 TIMES DAILY START DROPS AFTER SURGERY 10/18 completed Not Available Not Available Not Available aripipraz ole 10 mg tablet Take 0.5 tablets every day by oral route for 90 days. 11/12 completed Not Available Not Available Not Available OraMagicR x mouthwash TAKE 15ML BY MUCOUS ROUTE 07/03 completed Not Available Not Available Not Available rosuvasta tin 40 mg tablet Take 1 tablet by mouth once daily 2022 active Not Available Not Available Not Avai lable metformin ER 1,000 mg tablet,ex tended release 24hr (osmotic) Take 1 tablet twice a day by oral route. 10/22 completed Not Available Not Available Not Available nitrofura ntoin monohydra te/macroc rystals 100 mg capsule Take 1 capsule every 12 hours by oral route for 5 days. 10/22 completed Not Available Not Available Not Available Calcium 600 + D(3) 11/26 completed Not Available Not Available Not Available ICaps AREDS TK 1C PO QD 2019 active Not Available Not Available Not Avai lable Farxiga 5 mg tablet Take 1 tablet every day by oral route. 09/16 completed changed to Jardianc e due to cost. Not Available Not Available Not Available ICaps AREDS 7,160 unit-113 mg-100 unit tablet,de layed release Take 1 tablet by oral route. 10/22 completed Not Available Not Available Not Available Jardiance 10 mg tablet Take 1 tablet every day by oral route. 01/04 completed Not Available Not Available Not Available David Root U-100 Insulin 100 unit/mL (3 mL) subcutane ous INJECT 50 UNITS SUBCUTAN EOUSLY ONCE DAILY active Not Available Not Available No t Available Ozempic 0.25 mg or 0.5 mg (2 mg/1.5 mL) subcutane ous pen injector INJECT 0.25 MG SUB-Q WEEKLY FOR 4 WEEKS, THEN GO TO 0.5 MG WEEKLY FOR 4 WEEKS THEN GO TO 1 MG WEEKLY 04/14 completed Not Available Not Available Not Available OneTouch Ultra Blue Test Strip USE STRIP TO CHECK GLUCOSE 4 TIMES DAILY active Not Available Not Available No t Available omeprazol e 20 mg delayed release,d isintegra ting tablet Take 1 tablet every day by oral route. 11/26 completed Not Available Not Available Not Available OneTouch Ultra2 Meter USE DIRECTED active Not Available Not Available No t Available OneTouch Delica Plus Lancet 33 gauge USE DIRECTED active Not Available Not Available No t Available Fluzone High-Dose Quad 2020- (PF) 240 mcg/0.7 mL IM syringe PHARMACY ADMINIST ERED 06/13 completed Not Available Not Available Not Available Ozempic 1 mg/dose (4 mg/3 mL) subcutane ous pen injector INJECT 1 MG SUBCUTAN EOUSLY EACH WEEK active Not Available Not Available No t Available Paxlovid 300 mg (150 mg x 2)-100 mg tablets in a dose pack Take 3 tablets twice a day by oral route for 5 days. active Not Available Not Available No t Available Ozempic 0.25 mg or 0.5 mg (2 mg/3 mL) subcutane ous pen injector INJECT 0.5 MG SUBCUTAN EOUSLY EACH WEEK FOR 4 WEEKS AND THE INCREASE TO 1 MG WEEKLY active Not Available Not Available No t Available Vitals Date Recorded Body mass index (BMI) Body height Heart rate Body temperature Body weight Systolic blood pressure Diastolic blood pressure Provider Name and Address Organization Details Last Updated DateTime 3 29.8 kg/m2 157.48 cm 79 /min 97.2 [degF] 92834.5 6 g 136 mm[Hg] 62 mm[Hg] Not Available [facility] 3 01:21:17 Date Recorded Body height Body mass index (BMI) Body weight Body temperature Heart rate Systolic blood pressure Diastolic blood pressure Provider Name and Address Organization Details Last Updated DateTime 3 157.48 cm 30.7 kg/m2 01624.5 2 g 97.4 [degF] 80 /min 146 mm[Hg] 70 mm[Hg] IDANIA Flores CT [employer] [facility] [employer] [facility] 3 09:54:34 Date Recorded Body height Body mass index (BMI) Body weight Body temperature Heart rate Systolic blood pressure Diastolic blood pressure Provider Name and Address Organization Details Last Updated DateTime 3 157.48 cm 28.6 kg/m2 91861.5 7 g 97.7 [degF] 90 /min 136 mm[Hg] 70 mm[Hg] IDANIA Flores CT [employer] [facility] [employer] 3 10:04:26 Date Recorded Body height Body mass index (BMI) Body weight Body temperature Heart rate Systolic blood pressure Diastolic blood pressure Provider Name and Address Organization Details Last Updated DateTime 3 157.48 cm 28.9 kg/m2 65213.5 9 g 98.2 [degF] 74 /min 134 mm[Hg] 70 mm[Hg] Loly mcfarland RN [facility] [employer] [facility] 3 10:07:33 Date Recorded Body height Body mass index (BMI) Body weight Body temperature Heart rate Systolic blood pressure Diastolic blood pressure Provider Name and Address Organization Details Last Updated DateTime 3 157.48 cm 30.9 kg/m2 89737.1 1 g 98.3 [degF] 65 /min 128 mm[Hg] 62 mm[Hg] IDANIA Flores [employer] [facility] [employer] [facility] 3 11:43:44 Social History Question Answer Notes LastModified by Organization Details LastModified Time Tobacco Smoking Status Former Smoker quit in 1988 Not Available [facility] 10/08/2022 01:07:47 Do You Have An Advance Directive? Yes Living Will MIGRATION.0301 [id number] Information not available 10/08/2022 What Is Your Level Of Alcohol Consumption? Occasional MIGRATION.0301 [id number] Information not available 10/08/2022 Are You Blind Or Do You Have Difficulty Seeing? No MIGRATION.0301 [id number] Information not available 10/08/2022 What Is Your Level Of Caffeine Consumption? Moderate MIGRATION.0301 [id number] Information not available 10/08/2022 How Much Tobacco Do You Chew? None MIGRATION.0301 [id number] Information not available 10/08/2022 In The 14 Days Before Symptom Onset, Have You Had Close Contact With A Laboratory-confi rmed COVID-19 While That Case Was Ill? No MIGRATION.0301 [id number] Information not available 10/08/2022 In The 14 Days Before Symptom Onset, Have You Had Close Contact With A Person Who Is Under Investigation For COVID-19 While That Person Was Ill? No MIGRATION.0301 [id number] Information not available 10/08/2022 Are You Deaf Or Do You Have Serious Difficulty Hearing? No MIGRATION.0301 [id number] Information not available 10/08/2022 What Type Of Diet Are You Following? REGULAR MIGRATION.030 [id number] Information not available 10/08/2022 Which Illicit Or Recreational Drugs Have You Used? None MIGRATION.0301 157992 Information not available 10/08/2022 Do You Or Have You Ever Used E-cigarettes Or Vape? Never Used Electronic Cigarettes MIGRATION.030 018537 Information not available 10/08/2022 What Is The Highest Grade Or Level Of School You Have Completed Or The Highest Degree You Have Received? [id number] MIGRATION.030 893531 Information not available 10/08/2022 What Is Your Occupation? Retired MIGRATION.030 828023 Information not available 10/08/2022 Have There Been Any Changes To Your Family Or Social Situation? No MIGRATION.0301 436191 Information not available 10/08/2022 What Is The Fluoride Status Of Your Home? Unknown MIGRATION.0301 003845 Information not available 10/08/2022 When Did You Quit Smoking? 18+yearssincelastc igarette MIGRATION.0301 066313 Information not available 10/08/2022 Are There Any Guns Present In Your Home? No MIGRATION.0301 [id number] Information not available 10/08/2022 Do You Use Insect Repellent Routinely? No MIGRATION.0301 577503 Information not available 10/08/2022 Where Do You Live? [facility] MIGRATION.0301 [id number] Information not available 10/08/2022 Do You Have A Medical Power Of Pulp Tester? No MIGRATION.0301 374273 Information not available 10/08/2022 What Was The Date Of Your Most Recent Tobacco Screening? 07/06/2023 [email or web address] Information not available 07/06/2023 Have You Ever Been Counseled For Unhealthy Alcohol Use? No MIGRATION.0301 033505 Information not available 10/08/2022 Do You Have Any Pets? No MIGRATION.0301 209223 Information not available 10/08/2022 What Is Your Relationship Status? MIGRATION.0301 336782 Information not available 10/08/2022 Do You Use Your Seat Belt Or Car Seat Routinely? Yes MIGRATION.0301 585120 Information not available 10/08/2022 Do You Have Smoke And Carbon Monoxide Detectors In Your Home? Yes MIGRATION.0301 087323 Information not available 10/08/2022 Are You Passively Exposed To Smoke? No MIGRATION.0301 662641 Information not available 10/08/2022 Do You Or Have You Ever Used Smokeless Tobacco? Never Used Smokeless Tobacco MIGRATION.0301 165317 Information not available 10/08/2022 Are There Any Smokers In Your House? No MIGRATION.0301 060624 Information not available 10/08/2022 How Much Tobacco Do You Smoke? No MIGRATION.0301 [id number] Information not available 10/08/2022 What Types Of Sporting Activities Do You Participate In? None MIGRATION.0301 127894 Information not available 10/08/2022 Do You Feel Stressed (tense, Restless, Nervous, Or Anxious, Or Unable To Sleep At Night)? [id number] MIGRATION.0301 158149 Information not available 10/08/2022 Do You Use Any Illicit Or Recreational Drugs? No MIGRATION.0301 239492 Information not available 10/08/2022 Do You Use Sunscreen Routinely? No MIGRATION.0301 [id number] Information not available 10/08/2022 Has Tobacco Cessation Counseling Been Provided? No MIGRATION.0301 520977 Information not available 10/08/2022 How Many Years Have You Smoked Tobacco? 30 MIGRATION.0301 790997 Information not available 10/08/2022 Have You Recently Traveled Abroad? No MIGRATION.0301 124284 Information not available 10/08/2022 Do You Have Any Dietary Restrictions? No MIGRATION.0301 440694 Information not available 10/08/2022 Do You Or Have You Ever Used Any Other Forms Of Tobacco Or Nicotine? No MIGRATION.0301 354162 Information not available 10/08/2022 Sex: Female Functional Status Question Answer Note LastModified by Organizat ion Details LastModified Time Do you have difficulty walking or climbing stairs? No MIGRATION.[id number] 026 Information not available 10/08/2022 Do you have transportation difficulties? No MIGRATION.7970419 026 Information not available 10/08/2022 Are you able to walk? YESWOREST MIGRATION.1601514 026 Information not available 10/08/2022 Do you have difficulty doing errands alone? No MIGRATION.3483031 026 Information not available 10/08/2022 Are you able to care for yourself? Yes MIGRATION.[id number] 026 Information not available 10/08/2022 Do you have difficulty dressing or bathing? No MIGRATION.6090583 026 Information not available 10/08/2022 What is your exercise level? Moderate MIGRATION.[id number] 026 Information not available 10/08/2022 Mental Status Question Answer Note LastModified by Organizat ion Details LastModified Time Do you have difficulty concentrating, remembering or making decisions? No MIGRATION.[id number] 6 Information not available 10/08/2022 Family History Relationship Description Onset Age of this Age Resolved Age Notes LastModified by Organization Details LastModified Time Mother Heart disease MIGRATION.464 [id number] Not available 10/08/2022 01:20:50 Mother Hypertensive disorder MIGRATION.725 [id number] Not available 10/08/2022 01:20:50 Father Diabetes mellitus 82 MIGRATION.538 [id number] Not available 10/08/2022 01:20:51 Sister Diabetes mellitus MIGRATION.916 [id number] Not available 10/08/2022 01:20:51 Sister Heart disease MIGRATION.240 [id number] Not available 10/08/2022 01:20:51 Daughter Diabetes mellitus MIGRATION.244 [id number] Not available 10/08/2022 01:20:51 Daughter Disease of liver MIGRATION.845 [id number] Not available 10/08/2022 01:20:51 Son Acute myeloid leukemia, disease 30 MIGRATION.027 [id number] Not available 10/08/2022 01:20:51 Medical History Condition Response NERVE DISEASE N BLINDNESS N RHEUMATIC FEVER N KIDNEY STONES N BLADDER PROBLEMS N OTHER # 1 Y POLIO N LUNG DISEASE/DISORDER N RADIATION / CHEMOTHERAPY N COPD N Other # 2 Y BLOOD DISEASES N SURGERY N EAR OR HEARING PROBLEMS N MUMPS N DEPRESSION (INCLUDING POST ) N BOWEL PROBLEMS N STROKE/TIA N ULCERS N BENIGN PROSTATIC HYPERPLASIA N MEASLES N MYOCARDIAL INFARCTION N OBESITY N GERD/NAUSEA N ANEURYSM N URINARY/BLADDER/KIDNEY PROBLEMS N INPATIENT PSYCH CARE N CORONARY ARTERY DISEASE (CAD) N ADDICTION CONCERNS N Impotence N ENDOMETRIOSIS N USE OF BLOOD THINNERS N SKIN PROBLEMS N GASTROINTESTINAL DISORDER N PERIPHERAL VASCULAR DISEASE N MUSCLE,JOINT OR BONE PROBLEMS N GASTROINTESTINAL BLEEDING N BLOOD CLOTS N ASTHMA N CATARACTS N ERECTILE DYSFUNCTION N VARICOSITIES N GI PROBLEMS N Low Testosterone N INFERTILITY N AIDS/HIV N LIVER DISEASE N MALE HYPOGONADISM N HYPERTENSION Y Deficiency N ANXIETY DISORDER Y BLOOD TRANSFUSION N ANEMIA/BLOOD DISORDER N CHRONIC EAR INFECTIONS N BRONCHITIS N TUBERCULOSIS N GLAUCOMA N DIVERTICULITIS N SLEEP APNEA N CHICKENPOX N INFECTIOUS DISEASE N PROSTATE N HEART ARRHYTHMIA N INSOMNIA N HIGH CHOLESTEROL / HYPERLIPIDEMIA Y EYE PROBLEMS N HYPERTHYROIDISM N NEUROLOGICAL PROBLEMS N EDEMA N CHRONIC PAIN SYNDROME N HYPOTHYROIDISM N CAROTID BLOCKAGE N CONSTIPATION N BACK / NECK PROBLEMS N HAVE YOU BEEN HOSPITALIZED OR SEEN IN [facility] IN THE PAST YEAR ? N ATHEROSCLEROSIS N BREAST PROBLEMS N DIALYSIS N ECZEMA N OSTEOPOROSIS N ARTHRITIS N NO SIGNIFICANT PAST MEDICAL HISTORY N APPENDICITIS N DIABETES, TYPE Y BAD TEETH N ENT N HEARTBURN / REFLUX N AUTISM SPECTRUM DISORDER (ASD) N HEPATITIS / LIVER DISEASE N PULMONARY DISEASE N GOUT N SLEEP DISORDER N ALZHEIMER'S DISEASE N Brain Problems N DEMENTIA N HERPES N SEIZURES/EPILEPSY N HEADACHES/MIGRAINES N VASCULAR DISEASE N PACEMAKER N Blood Disorder N DIZZINESS N HEART DISEASE/HEART PROBLEMS N KIDNEY DISEASE N MULTIPLE SCLEROSIS N CANCER: SPECIFY N CARDIAC ARRHYTHMIA N ANESTHESIA COMPLICATIONS N ATRIAL FIBRILLATION N Gall Stones N PULMONARY EMBOLISM N AUTOIMMUNE DISEASE N Gynecological History Statement/Question Response Date of Last Mammogram 10/31/2021 Current Control Method Menopause Date of Last Colonoscopy 05/28/2021 Most Recent Bone Density 05/24/2021 Obstetrics History GPAL:G 4 P 4 0 0 4 Type Value Full Term 4 Living 4 Total 4 Immunizations Vaccine Type Date Status Note Provider Nam e and Address Organization Details Recorded Time COVID-19, mRNA, LNP-S, PF, 100 mcg/0.5mL dose or 50 mcg/0.25mL dose 11/03/2020 completed Not Available [facility] 3 07:22:47 COVID-19, mRNA, LNP-S, bivalent, PF, 50 mcg/0.5 mL or 25mcg/0.25 mL dose 07/12/2022 completed Not Available [facility] 3 07:22:47 Influenza, high-dose, quadrivalent, PF 06/05/2021 completed Not Available [facility] 3 07:22:47 COVID-19, mRNA, LNP-S, PF, 100 mcg/0.5mL dose or 50 mcg/0.25mL dose 10/06/2020 completed Not Available [facility] 3 07:22:47 Influenza, high-dose, trivalent, PF 04/24/2020 completed Not Available [facility] 2022 07:22:47 MMR 10/31/2013 completed Not Available [facility] 2023 07:22:47 Past Encounters Encounter ID Performer Location Encounter Start Date Encounter Closed Date Diagnosis/Indication Diagnosis SNOMED-CT Code Diagnosis ICD10 Code Diagnosis Note [id number] [facility] Internal Med [facility] [address] [place] [address] 10/17/2020 00:00:00 10/17/2020 10:46:27 [id number] [facility] Internal Med [facility] [address] [place] [address] [place] [address] 05/22/2021 00:00:00 06/10/2021 15:09:44 [id number] _ATHENA_M IGRATION_ DEFAULT_1 _1 , 06/14/2021 00:00:00 06/17/2021 14:00:08 [id number] [facility]G Internal Med [facility] [address] [place] [address] [place] [address] 07/03/2021 00:00:00 07/04/2021 13:58:27 [id number] AHS_[facility]G Internal Med [facility] 15 [address] [place] [address] 10/16/2021 00:00:00 11/09/2021 12:00:07 [id number] AHS_[facility]G Internal Med [facility] [address] [place] [address] [place] [address] 04/23/2022 00:00:00 04/23/2022 10:32:13 [id number] A[facility]G Internal Med [facility] [address] [place] [address] [place] [address] 05/27/2022 00:00:00 05/27/2022 12:57:26 [id number] AHS_[facility]G Internal Med [facility] [address] [place] [address] [place] [address] 07/15/2022 00:00:00 07/16/2022 09:12:23 [id number] AHS_GMG Internal Med [facility] [address] [facility] , [place] [address] 08/19/2022 00:00:00 08/24/2022 15:28:47 [id number] Eliecer Morales MD S_GMG Internal Med [facility] [address] [place] [address] , [address] [address] 10/22/2022 09:36:48 10/22/2022 10:48:16 Cough 38818180 R05.9 Gastroesop hageal reflux disease 077309164 K21.9 Type 2 liliam betes mellitus 64019766 E11.9 Essential hypertension 46057471 I10 [id number] Eliecer Morales MD S_GMG Internal Med [facility] [address] [place] [address] , [address] [address] 12/09/2022 09:55:17 12/09/2022 10:33:49 Dyslipidemia 457090915 E78.5 Essential hypertension 07550086 I10 Anxiety state 451441211 F41.1 Diabetes mellitus 328026 09 E11.9 Gastroesop hageal reflux disease 541447292 K21.9 [id number] Eliecer Morales MD A[facility]G Internal Med [facility] [address] [place] [address] [place] [address] 04/14/2023 09:57:13 04/14/2023 10:15:41 Urinary incontinence 138093186 R32 Gastroesop hageal reflux disease 979718752 K21.9 Essential hypertension 43650992 I10 Osteopenia 536812506 M85 .80 [id number] Eliecer Morales MD [facility] Internal Med [facility] 15 [address]43 [facility], [address] [place] [address] 07/06/2023 10:56:14 07/06/2023 12:26:25 Uncontrolled type 2 diabetes mellitus 953837712 E11.65 Fall W19.XXXA Superficia l thrombophlebitis 9299324 I80.9 Nausea and vomiting 1693 1999 R11.2 Health Concerns Section Related Observation LastModified by Organization Detai ls LastModified Time None Recorded Concern Status LastModified by Organization Details LastModified Time None Recorded Advance Directives Directive Y: living will Payers Encounter Date Sequence Insurance Name Policy Number Policy Jose Covered Member ID Jose Member ID Guarantor Name 10/22/2022 1 [facility] (MEDICARE REPLACEMENT/A DVANTAGE - HMO) [id number] Gena A Flores [id number] Gena A Flores 12/09/2022 1 [facility] (MEDICARE REPLACEMENT/A DVANTAGE - HMO) [id number] Gena A Flores [id number] Gena A Flores 04/14/2023 1 [facility] (MEDICARE REPLACEMENT/A DVANTAGE - HMO) [id number] Gena A Flores [id number] Gena A Flores 07/06/2023 1 [facility] (MEDICARE REPLACEMENT/A DVANTAGE - HMO) [id number] Gena A Flores [id number] Gena A Flores Notes Date Note Type Note Provider Name and Address Organization Details Recorded Time 10/22/2022 text/html Dry cough at timesStill with GERD symptomsDiabetes sugar still a little bitHypertension no headache no dizzinessChronic kidney disease no nausea no vomiting no edema Eliecer Morales MD [address] [facility], [address], [place], [address], [facility] [employer] [facility] 11/02/2022 13:10:23 12/09/2022 text/html Hypertension no headache or dizziness. Dyslipidemia try to follow a low-fat diet. Diabetes no polyphagia or hypoglycemia. GERD no nausea no vomiting. Ongoing problems with urinary incontinence. Heartburn is been hard to control Eliecer Morales MD [address], [place], [address], [employer] 01/18/2023 15:22:11 04/14/2023 text/html Hypertension no headache or dizziness. Dyslipidemia try to follow a low-fat diet. Diabetes no polyphagia or hypoglycemia. GERD no nausea no vomiting. Ongoing problems with urinary incontinence. Heartburn is been hard to control Eliecer Morales MD [address], [place], [address], [employer] 04/14/2023 10:23:59 07/06/2023 text/html Recent fall mech anical tripped giving the dog food [facility] large hematoma her back anterior pelvis required a unit of blood pain baclofen hydrocodone given to discharge nausea and vomiting after she takes baclofen and hydrocodonePain right upper extremity where they put the blood in and IVTrouble getting aroundDiabetes uncontrolled hemoglobin A1c 9.9 in hospital Eliecer Morales MD [address], [place], [address], [employer] 07/06/2023 22:56:10 OBGyn Episode No OBEpisode recorded.
--- OUTSIDE RECORDS SUMMARY | 2024-09-21 06:46 | XMS_ITS | Referral Summary ---
Author Organization [facility] [employer] Address [address] [facility] [place] [address] Care Team Providers Care Asp Net Software Developer Name Role Phone Micaela Santos PA-C Primary Care Provider [phone] Source Comments [facility] [employer],non-owned Affiliates and Associated Physician Practices is amultiple site organization consisting of ambulatory clinics and hospital sitesin [place], [place], [place] and [place]. This disclosure is being madepursuant to the Care Everywhere program and may not contain all information available regarding this patient. Last updated 18.[facility] [employer] Allergies Active Allergy Reactions Criticality Noted Date Comments Zrc-Eko-Fblwh-3 Fatty Acids-[place] Anaphylaxis High 12/07/2015 Had [place] and had difficulty breathing (swollen throat). Had [...] 12/10/2015 7:40 AM CDT Plan of Treatment Not on file Care Teams Asp Net Software Developer Relationship Specialty Start Date End Date Micaela Santos PA-C PCP - General 05/27/17
--- OUTSIDE RECORDS SUMMARY | 2024-09-21 06:46 | XMS_ITS | Clinical Summary ---
Author Organization [facility] Address [address] [address] Care Team Providers Care Rn Interventional Name Role Phone Eliecer Morales MD Primary Care Provider [phone] Allergies Active Allergy Reactions Criticality Noted Date Comments Fish Oil 03/14/2021 Latex 03/14/2021 Medications * This document contains information received from the source organization and may not represent a complete record from that organization. insulin glargine (Basaglar KwikPen) 100 UNIT/ML injection Inject 30 Units under the skin 1 (one) time each day in the evening 7 Active rosuvastatin (CRESTOR) 40 MG tablet Take 1 tablet by mouth 1 (one) time each day Active Multiple Vitamins-Minera ls (ICAPS AREDS 2 PO) Take by mouth 1 (one) time each day Active sertraline (ZOLOFT) 50 MG tablet Take 50 mg by mouth 1 (one) time each day Active glimepiride (AMARYL) 2 MG tablet Take 1 tablet (2 mg total) by mouth 1 (one) time each day before breakfast 90 tablet 3 3 Active Semaglutide,0.2 5 or 0.5MG/DOS, (Ozempic, 0.25 or 0.5 MG/DOSE,) 2 MG/1.5ML solution pen-injector Inject 0.25 mg under the skin per week Active gemfibrozil (LOPID) 600 MG tablet Take 1 tablet (600 mg total) by mouth in the morning and 1 tablet (600 mg total) in the evening. 180 tablet 4 10/15/19 25 Active losartan (COZAAR) 25 MG tablet Take 1 tablet by mouth once daily 90 tablet 4 Active metFORMIN (GLUCOPHAGE) 1000 MG tablet Take 1 tablet (1,000 mg total) by mouth in the morning and 1 tablet (1,000 mg total) in the evening. Take with meals. 180 tablet 1 5 Active Dapagliflozin Propanediol 10 MG tablet Take 10 mg by mouth 1 (one) time each day in the morning 30 tablet 5 5 Active traMADol (ULTRAM) 50 MG tablet TAKE 1 TABLET BY MOUTH EVERY 8 HOURS NEEDED FOR PAIN 30 tablet 5 Active metFORMIN (GLUCOPHAGE) 500 MG tablet Take 500 mg by mouth in the morning and 500 mg in the evening. Take with meals. 08/30/19 25 Discontinu ed(Reorder (does not appear on AVS)) Dapagliflozin Propanediol (Farxiga) 5 MG tablet Take 5 mg by mouth every morning 90 tablet 3 2 08/30/19 25 Discontinu ed(Alterna te therapy) Dapagliflozin Propanediol 10 MG tablet Take 10 mg by mouth 1 (one) time each day in the morning 08/30/19 25 Discontinu ed(Reorder (does not appear on AVS)) Active Problems Problem Noted Date Diagnosed Date Anxiety state 03/14/2021 Stage 3b chronic kidney disease 03/14/2021 Depressive disorder 03/14/2021 Gastroesophageal reflux disease 03/14/2021 Hyperlipidemia 03/14/2021 Obesity 03/14/2021 Osteoarthritis 03/14/2021 Proteinuria 03/14/2021 Vitamin D deficiency 03/14/2021 Dyslipidemia 11/12/2018 Essential hypertension 11/12/2018 Type 2 diabetes mellitus 05/24/2015 Encounters Date Type Department Care Team Description 09/01/2024 Refill [facility], [employer] [address] [place] [address] Jefe Chong MD 08/30/2024 10:15 AM KNITTED GARMENT FINISHER Office Visit [facility], [facility] [address] [place] [address] Jefe Chong MD Stage 3b chronic kidney disease (HCC) (Primary Dx); Essential hypertension; Type 2 diabetes mellitus, not otherwise specified (HCC); Mixed hyperlipidemia; Persistent proteinuria; Primary generalized osteoarthritis; Vitamin D deficiency, not otherwise specified 08/30/2024 [facility]ill [facility], [facility] [address] [facility] [address] [place] [address] Dinah Harley [facility] 08/26/2024 Documentation Only [facility], [address] [address] Jefe Chong MD 07/06/2024 Refill [facility], [address] [address] Mya Arzate [facility] 06/29/2024 Office Communication [address] [address] Jefe Chong MD from Last 3 Months Immunizations Name Administration Dates Next Due Influenza Split High Dose Preservative Free IM 0 04/24/2020 Influenza TIV (IM) 06/04/2020 MMR 10/31/2013 Moderna SARS-COV-2 10/06/2020 Family History Medical History Relation Comments Cancer Child son/daughter Cancer Father Diabetes Father Heart disease Mother Hypertension Mother Diabetes Sibling 1 Hypertension Sibling 2 Relation Status Comments Child Father Mother Alive Sibling 1 Sibling 2 Social History Tobacco Use Types Packs/Day Years Used Date Smoking Tobacco: Former Smokeless Tobacco: Never Tobacco Cessation:Counseling Given: Not Answered Alcohol Use Standard Drinks/Week Comments Yes 0 (1 standard drink = 0.6 oz pure alcohol) Alcoholic Drinks/day: Occasional social drink Comments Unknown Sex and Gender Information Value Date Recorded Sex Assigned at Not on file Legal Sex Female 2:49 PM EDT Gender Identity Not on file Sexual Orientation Not on file Last Filed Vital Signs Vital Sign Reading Time Taken Comments Blood Pressure 120/60 08/30/2024 10:10 AM KNITTED GARMENT FINISHER Pulse 68 08/30/2024 10:10 AM KNITTED GARMENT FINISHER Temperature 36.7 C (98 F) 08/30/2024 10:10 AM KNITTED GARMENT FINISHER Respiratory Rate 18 08/30/2024 10:10 AM KNITTED GARMENT FINISHER Oxygen Saturation 97% 08/30/2024 10:10 AM KNITTED GARMENT FINISHER Inhaled Oxygen Concentration - - Weight 68.1 kg (150 lb 1.6 oz) 08/30/2024 10:10 AM KNITTED GARMENT FINISHER Height 154.9 cm (5' 1 ) 04/26/2024 10:06 AM CDT Body Mass Index 28.36 04/26/2024 10:06 AM CDT Plan of Treatment Upcoming Encounters Date Type Department Care Team (Late st Contact Info) Description 12/27/2024 10:15 AM CDT Office Visit [facility], [facility] [address] [facility] [address] [place] [address] Jefe Chong MD [address] [facility] 1 [place] [address] Health Maintenance Due Date Last Done Comments Breast Cancer Screening 1950 Pneumococcal Vaccine: 65+ Years (1 of 2 - PCV) 1958 Colorectal Cancer Screening: Annual FOBT 2001 Colorectal Cancer Screening: Colonoscopy 2001 Colorectal Cancer Screening: Sigmoidoscopy 2001 Diabetes: Ophthalmology Exam 01/03/2021 Diabetes: Pedal Pulse Checked 01/03/2021 Diabetes: Sensory Foot Exam 01/03/2021 Diabetes: Visual Foot Exam 01/03/2021 Influenza Vaccine (#1) 2024 06/04/2020, 2019 Diabetes: Hemoglobin A1C 11/23/2024 025, 12/24/2023, 08/20/2023, Additional history exists Hepatitis B Vaccine Aged Out No longe r eligible based on patient's age to complete this topic Procedures Procedure Name Priority Date/Time Associated Diagnosis Comments EXT RESULT ENTRY Routine 08/25/2024 from Last 3 Months Results * (ABNORMAL) EXT RESULT ENTRY (08/25/2024) WBC 9.1 3.3 - 10.0 10*3/ML Red Blood Cell Count 3.78 Hemoglobin 11.9(A) 12.0 - 16.0 Hematocrit 35.8(A) 36.0 - 46.0 Platelets 297 150 - 399 10*3/UL MCV 94.7 82.0 - 108.0 Sodium 139 137 - 147 Potassium 4.2 3.4 - 5.5 Chloride 107.0 99.0 - 108.0 Carbon Dioxide 25 mmol/L Anion Gap 11.2 <=30 MMOL/L Glucose 162 60 - 200 BUN 19 4 - 21 mg/dL Creatinine 1.15(A) 0.50 - 1.10 mg/dL Total Protein 7.6 6.4 - 8.2 G/DL Albumin 4.7 3.5 - 5.0 g/dL Calcium 9.7 8.7 - 10.7 mg/dL Phosphorus, Serum 3.5 eGFR Non-Afr Citizen Of [place] 46(L) PTH 83.5(H) PG/ML Vitamin D, 25-OH, Total 32.5 ng/mL Hemoglobin A1C 10.2(A) 4.0 - 6.0 Protein Urine Random 58(H) Creatinine, Urine Random 96.50 mg/dL Urine Protein/Creatini ne Ratio 0.6(H) mg/g creat Bilirubin, UA Negative Ketones, UA Negative Urine Specific [place] 1.14 pH, UA 5.5 Protein, UA 30 1+ mg/dL Urobilinogen, UA Normal Nitrite, UA Negative Leukocytes, UA 500 RBC, Urine 5-10(A) None Seen, Occasional, 1-5 /HPF Bacteria, Urine Moderate(A) None Seen, Occasional /HPF Triglycerides 67 Cholesterol, Total 150 HDL 68 mg/dL LDL-Calculated 69 Glucose, Urine 70 Blood, Urine 0.03 WBC, Urine PACKED Squamous Epithelial Cells (#LPF) Ur PACKED FIELD 08/25/2024 Historical Provider LAB BLOOD ORDERABLES Adelita l Result from Last 3 Months [id number] Care Teams Rn Interventional Relationship Specialty Start Date End Date Eliecer Morales MD [address] [place] [address] PCP - General Internal Medicine 02/19/23
--- OUTSIDE RECORDS SUMMARY | 2024-09-21 06:46 | XMS_ITS | Encounter Summary ---
Author Organization [facility] Address [address] [place] [address] Phone Care Team Providers Care Curriculum Writer Name Role Phone Eliecer Morales MD Primary Care Provider [phone] Reason for Visit * Reason Comments Med Refill Encounter Details Date Type Department Care Team (Late st Contact Info) Description 06/28/[address] [facility], [facility] [address] [place] [address] Jefe Chong MD [address] [facility] 1 [place] [address] Social History Tobacco Use Types Packs/Day Years Used Date Smoking Tobacco: Former Smokeless Tobacco: Never Alcohol Use Standard Drinks/Week Comments Yes 0 (1 standard drink = 0.6 oz pure alcohol) Alcoholic Drinks/day: Occasional social drink Comments Unknown Sex and Gender Information Value Date Recorded Sex Assigned at Not on file Legal Sex Female 2:49 PM EDT Gender Identity Not on file Sexual Orientation Not on file documented as of this encounter Plan of Treatment Upcoming Encounters Date Type Department Care Team (Late st Contact Info) Description 12/27/2024 10:15 AM CDT Office Visit [facility], [facility] [address] [facility] [address] [place] [address] Jefe Chong MD [address] [facility] 1 [place] [address] documented as of this encounter Visit Diagnoses Not on filedocumented in this encounter Care Teams Curriculum Writer Relationship Specialty Start Date End Date Eliecer Morales MD [address] [place] [address] PCP - General Internal Medicine 02/19/23 documented as of this encounter
--- OUTSIDE RECORDS SUMMARY | 2024-09-21 06:46 | XMS_ITS | CONTINUITY OF CARE DOCUMENT ---
Author Name sanaz yo Address Unknown Organization [facility] Address [address] [facility] [address] [place] [address] Phone [phone] Care Team Providers Care Angle Shear Set Up Operator Name Role Phone Satinder QUINTEROS, Kevin Unavailable Bruno Xie MD Unavailable JARRET NOLEN MD Unavailable PROBLEMS Condition Status Date Provider Notes Valvular heart disease active Kevin Rajan MD Curran's esophagus active Kevin Rajan MD Obesity active Kevin Rajan MD covid 19;2020;HAD VACCINE active Kevin chiu MD Tobacco use, quit active Kevin Rajan MD t oo remote to screen Diabetes mellitus, type 2 active Kevin chiu MD Hypercholesterolemia active Kevin Branch HYPERTENSION;neg duplex active Kevin carmona MD Vitamin D deficiency active Kevin Branch Renal disease, chronic, mild;neg us and duplex active Kevin Rajan MD Screening active Kevin Rajan MD Exudative age-related macula r degeneration active Kevin Rajan MD Imported from C DA: [employer] (07-Jan-2024 at 01:45:44 PM) Sleep apnea active Kevin Rajan MD ENCOUNTERS Date Type Provider Location Encounter Diag nosis - In-person encounter Office Visit Kevin Rajan MD [place] [facility] Curran's esophagusObesitycovid ;HAD VACCINETobacco use, quitDiabetes mellitus, type 2HypercholesterolemiaHYPERTE NSION;neg duplexVitamin D deficiencyRenal disease, chronic, mild;neg us and duplexScreeningExudative age-related macular degenerationSleep apnea VITAL SIGNS Date Observation Value Provider Body Mass Index (Ratio) 30.30 kg/m2 Jimmie Rajan MD blood pressure, diastolic 72 mm[Hg] Li [employer]kLogic blood pressure, systolic 145 mm[Hg] Teresa kLogic blood pressure, cuff size regular Ja rret blood pressure, diastolic 72 mm[Hg] Ja rret blood pressure, systolic 145 mm[Hg] Jar ret pulse rate 71 /min Thee y oxygen saturation, oximetry 99 % Thee height E&M 61.5 [in_i] Thee y respiratory rate E&M 14 /min weight E&M 163 [lb_av] Thee y ALLERGIES Allergy Name Onset Date Reaction Criticality Status HAND CHIEF OF PEDIATRIC UROLOGY Rash Low Criticality activ e LATEX Low Criticality active SALMON Low Criticality active HISTORY OF MEDICATION USE Medication Status Instructions Dates Provider Indications Com ments rosuvastatin 40 mg tablet active Kevin Rajan MD Ozempic 1 mg/dose (4 mg/3 mL) pen injector active Kevin Rajan MD pantoprazole 40 mg tablet,delayed release (DR/EC) active Kevin Root U-100 Insulin 100 unit/mL (3 mL) insulin pen active INJECT 50 UNITS SUBCUTANEOUSLY ONCE DAILY Kevin Rajan MD gemfibrozil 600 mg tablet active Kevin Rajan MD sertraline 50 mg tablet active Kevin Rajan MD losartan 25 mg tablet active Kevin Rajan MD metformin 1,000 mg tablet active Kevin Rajan MD baclofen 10 mg tablet active TAKE 1 TABLET BY MOUTH EVERY 8 HOURS NEEDED FOR MUSCLE SPASM Kevin Rajan MD amlodipine 2.5 mg tablet active TAKE 1 TABLET BY MOUTH AT BEDTIME Kevin Rajan MD SOCIAL HISTORY Date Observation Value Provider quit smoking, stage quit Kevin sharma MD cigarette use yes Thee Saxena ay smoking status Former smoker Thee Jeffers rday INSURANCE PROVIDERS Payer name Policy type / Coverage type Bob White red republican ID [facility] Other AARP MEDICARE ADVANTAGE ST 0 [address] (HMO POS) Medicare [id number] ADVANCE DIRECTIVES Name Date DISCUSSED - NO DECISION MADE TREATMENT PLAN Date Name Performer disuss tirtain :mild Kevin leon MD :mild tr pap 29, mild to mod mr Kevin Rajan MD Cardiology Kevin Rajan MD Cardiology Kevin Rajan MD Cardiology Kevin Rajan MD Cardiology Kevin Rajan MD Cardiology Kevin Rajan MD Cardiology Kevin Rajan MD Cardiology Kevin Rajan MD Cardiology Kevin Rajan MD Cardiology:sx Kevin Rajan MD Cardiology:neg nuc Kevin Rajan MD Cardiology:7.2 Kevin Rajan MD Date Name Sleep Study Home RPM (remote patient monitoring) CT, Coronary Calcium Score Renal Artery Duplex Kidney Ultrasound Complete Echo HISTORY OF PROCEDURES Procedure Date Procedure Name Provider Procedure Notes S tatus EKG Kevin Rajan MD complete d
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
== END 2024-09-21 06:44 | disposition home or self-care (01) ==
PROVIDERS: PCP Internal Medicine; Visit Provider Internal Medicine
DX: M47.812 Spondylosis without myelopathy or radiculopathy, cervical region (principal); M48.02 Spinal stenosis, cervical region; R68.84 Jaw pain
CPT/HCPCS: 72125

== ENCOUNTER 2024-10-06 10:44 | Outpatient (CLI) | payer MEDICARE, SELFPAY | END 2024-10-06 10:45 | disposition home or self-care (01) | PROVIDERS: PCP Internal Medicine; Visit Provider Internal Medicine | DX: I65.23 Occlusion and stenosis of bilateral carotid arteries (principal); M54.2 Cervicalgia | CPT/HCPCS: 93880 ==

== ENCOUNTER 2025-01-03 08:28 | Outpatient (CLI) | payer MEDICARE, SELFPAY ==
--- NOTE | ~2025-01-03 | XR_ITS ---
EXAMINATION: XR UGIAC wo kub DATE: 01/03/2025 09:12 INDICATION: Gastroesophageal reflux disease TECHNIQUE: The patient drank thick barium, gas-producing crystals, and thin barium. A total of fluoro scopic images of the esophagus, stomach, and proximal small bowel were obtained. A total of 800 fluor oscopic images were recorded. Fluoroscopy exposure time was 2.3 minutes. Total DAP was 15.6mGycm^2. COMPARISON: None. FINDINGS: The esophagus is normal without mass or stricture. Esophageal motility is normal. There is no hiatal hernia. There was no gastroesophageal reflux with provocative maneuvers. The stomach and pr oximal small bowel are normal. IMPRESSION: 1. Normal upper GI study Reviewed, dictated and finalized at location A. IMPRESSION: 1. Normal upper GI study
--- OUTSIDE RECORDS SUMMARY | 2025-01-03 08:34 | XMS_ITS | Clinical Summary ---
Author Organization [facility] Address [address] [place] [address] Care Team Providers Care Commercial Solar Sales Consultant Name Role Phone Micaela Santos PA-C Primary Care Provider [phone] Source Comments [facility],non-owned Affiliates and Associated Physician Practices is amultiple site organization consisting of ambulatory clinics and hospital sitesin [place], [place], [place] and [place]. This disclosure is being madepursuant to the Care Everywhere program and may not contain all information available regarding this patient. Last updated 18.[facility] Allergies Active Allergy Reactions Criticality Noted Date Comments Vgo-Rsl-Qeays-3 Fatty Acids-[place] Anaphylaxis High 12/07/2015 Had [place] and had difficulty breathing (swollen throat). Had to use benadryl. Not hospitalized Medications * Be aware that medications may not be up to date on this document. Alwaysverify current medications with the patient. venlafaxine XR 24hr (EFFEXOR XR) 75 MG capsule Take 75 mg by mouth DAILY. 06/23/2017 Active BASAGLAR KWIKPEN (BASAGLAR) pen Inject 30 Units subcutaneou sly. 04/24/2017 Active losartan (COZAAR) 25 MG tablet [...] drink = 0.6 oz pur e alcohol) Comments Unknown Sex and Gender Information Value Date Recorded Sex Assigned at Not on file Legal Sex Female 5:17 PM SQL MANAGER Gender Identity Not on file Sexual Orientation [...] history exists COVID-19 VACCINE ( season) 2024 DEPRESSION SCREENING 08/10/2024 DIABETES - URINE PROTEIN SCREENING 08/10/2024 MEDICARE AWV CALENDAR YEAR 2024 INFLUENZA VACCINE (Season Ended) 2025 HEPATITIS B VACCINE Aged Out No longe r eligible based on patient's age to complete this topic HIB VACCINE Aged Out No longer eligi ble based on patient's age to complete this topic HPV VACCINE Aged Out No longer eligi ble based on patient's age to complete this topic MENINGOCOCCAL (Group B) VACCINE SHARED DECISION-MAKING Aged Out No longer eligible based on patient's age to complete this topic MENINGOCOCCAL GROUPS A/C/Y/W VACCINE Aged Out No longer eligible based on patient's age to complete this topic Insurance MEDICARE AARP UHC MANAGED MEDICARE ADV Care Teams Commercial Solar Sales Consultant Relationship Specialty Start Date End Date Micaela Santos PA-C PCP - General 05/27/17
--- OUTSIDE RECORDS SUMMARY | 2025-01-03 08:34 | XMS_ITS | Encounter Summary ---
Author Organization [email or web address] [facility] Address [address] [place] [address] Phone Care Team Providers Care Exchange Teller Name Role Phone Eliecer Morales MD Primary Care Provider [phone] Reason for Visit * Reason Comments Med Refill Encounter Details Date Type Department Care Team (Late st Contact Info) Description 06/28/2023 Refill [facility], [facility] [address] [address] [place] [address] [place] [address] 1 [place] [address] Social History Tobacco Use Types [...] Care Team (Late st Contact Info) Description 02/07/2025 10:30 AM CDT Office Visit [facility] [address] [facility] [address] [place] [address] Jefe Chong MD [address] [facility] 1 [place] [address] documented as of this encounter Visit Diagnoses Not on filedocumented in this encounter Care Teams Exchange Teller Relationship Specialty Start Date End Date Eliecer Morales MD [address] [place] [address] PCP - General Internal Medicine 02/19/23 documented as of this encounter
--- OUTSIDE RECORDS SUMMARY | 2025-01-03 08:34 | XMS_ITS | Encounter Summary ---
Author Organization [facility] [facility] Address [address] [place], [place] [address] [place] [address] Phone Care Team Providers Care Paper Baler Name Role Phone Eliecer Morales MD Primary Care Provider [phone] Reason for Visit * Reason Comments Med Change Request Encounter Details Date Type Department Care Team (Late Contact Info) Description 01/20/2022 Refill [place] [facility] [address] [facility] [address] [place] [address] Jefe Chong MD [facility] 1 [place] [address] Social History Tobacco Use Types [...] Department Care Team (Late Contact Info) Description 02/07/2025 10:30 AM CDT Office Visit [facility] [address] [facility] [address] [place] [address] Jefe Chong MD [address] [place] [address] [place] [address] documented as of this encounter Visit Diagnoses Not on filedocumented in this encounter Care Teams Paper Baler Relationship Specialty Start Date End Date Eliecer Morales MD [address] [place] [address] PCP - General Internal Medicine 02/19/23 documented as of this encounter
--- OUTSIDE RECORDS SUMMARY | 2025-01-03 08:35 | XMS_ITS | Clinical Summary ---
Author Organization [facility] Address [address] [address] Care Team Providers Care Director Of Sports Medicine Name Role Phone Eliecer Morales MD Primary Care Provider [phone] Allergies Active Allergy Reactions Criticality Noted Date Comments Fish Oil 03/14/2021 Latex 03/14/2021 Medications * This document contains information received from the source organization and may not represent a complete record from that organization. insulin glargine (Basaglar KwikPen) 100 UNIT/ML injection Inject 30 Units under the skin 1 (one) time each day in the evening 04/24/20 17 Active rosuvastatin (CRESTOR) 40 MG tablet Take [...] each day before breakfast 90 tablet 3 02/25/20 23 Active Semaglutide,0.2 5 or 0.5MG/DOS, (Ozempic, 0.25 or 0.5 MG/DOSE,) 2 MG/1.5ML solution pen-injector Inject 0.25 mg under the skin per week Active gemfibrozil (LOPID) 600 MG tablet Take 1 tablet (600 mg total) by mouth in the morning and 1 tablet (600 mg total) in the evening. 180 tablet 10/15/19 24 Active losartan (COZAAR) 25 MG tablet Take 1 tablet by mouth once daily 90 tablet 05/02/20 24 Active metFORMIN (GLUCOPHAGE) 1000 MG tablet Take 1 tablet (1,000 mg total) by mouth in the morning and 1 tablet (1,000 mg total) in the evening. Take with meals. 180 tablet 1 08/30/19 25 Active Dapagliflozin Propanediol 10 MG tablet Take 10 mg by mouth 1 (one) time each day in the morning 30 tablet 5 08/30/19 25 Active traMADol (ULTRAM) 50 MG tablet TAKE 1 TABLET BY MOUTH EVERY 8 HOURS NEEDED FOR PAIN 30 tablet 12/30/19 25 Active traMADol (ULTRAM) 50 MG tablet Take 1 tablet (50 mg total) by mouth every 8 (eight) hours if needed for moderate pain 30 tablet 10/13/19 25 025 Discontinued(Re order (does not appear on AVS)) traMADol (ULTRAM) 50 MG tablet Take 1 tablet (50 mg total) by mouth every 8 (eight) hours if needed for moderate pain 30 tablet 12/13/19 25 025 Discontinued Active Problems Problem Noted Date Diagnosed Date Anxiety state 03/14/2021 Stage 3b chronic kidney disease 03/14/2021 Depressive disorder 03/14/2021 Gastroesophageal reflux disease 03/14/2021 Hyperlipidemia 03/14/2021 Obesity 03/14/2021 Osteoarthritis 03/14/2021 Proteinuria 03/14/2021 Vitamin D deficiency 03/14/2021 Dyslipidemia 11/12/2018 Essential hypertension 11/12/2018 Type 2 diabetes mellitus 05/24/2015 Encounters Date Type Department Care Team Description 12/29/2024 Refill [facility], [address] [address] Jefe Chong MD 12/20/2024 Documentation Only [facility], [address] [address] Jefe Chong MD 12/12/2024 Refill [facility], [address] [address] Mya Arzate CMA 10/12/2024 Refill [facility], [address] [phone] Mya Arzate CMA from Last 3 Months Immunizations Immunization Administration Dates Next Due Influenza Split High [...] Comments Blood Pressure 120/60 08/30/2024 10:10 AM SPECTROGRAPHER Pulse 68 08/30/2024 10:10 AM SPECTROGRAPHER Temperature 36.7 C (98 F) 08/30/2024 10:10 AM SPECTROGRAPHER Respiratory Rate 18 08/30/2024 10:10 AM SPECTROGRAPHER Oxygen Saturation 97% 08/30/2024 10:10 AM SPECTROGRAPHER Inhaled Oxygen Concentration - - Weight 68.1 kg (150 lb 1.6 oz) 08/30/2024 10:10 AM SPECTROGRAPHER Height 154.9 cm (5' 1 ) 04/26/2024 10:06 AM CDT Body Mass Index 28.36 04/26/2024 10:06 AM CDT Plan of Treatment Upcoming Encounters Date Type Department Care Team (Late st Contact Info) Description 02/07/2025 10:30 AM CDT Office Visit [facility], [facility] [address] [facility] [address] [place] [address] Jefe Chong MD [address] [facility] 1 [place] [phone] Health Maintenance Due Date Last Done Comments Breast Cancer Screening 1950 Pneumococcal Vaccine: 50+ Years (1 of 2 - PCV) 1971 Colorectal Cancer Screening: Annual FOBT 2001 Colorectal Cancer Screening: Colonoscopy 2001 Colorectal Cancer Screening: Sigmoidoscopy 2001 Diabetes: Ophthalmology Exam 01/03/2021 Diabetes: Pedal Pulse Checked 01/03/2021 Diabetes: Sensory Foot Exam 01/03/2021 Diabetes: Visual Foot Exam 01/03/2021 Diabetes: Hemoglobin A1C 11/23/2024 025, 12/24/2023, 08/20/2023, Additional history exists Influenza Vaccine (Season Ended) 2025 06/04/2020, 04/24/2020 Hepatitis B Vaccine Aged Out No longe r eligible based on patient's age to complete this topic Procedures Procedure Name Priority Date/Time Associated Diagnosis Comments EXT RESULT ENTRY Routine 08/25/2024 from Last 3 Months or Most Recently Relevant to Health Maintenance Results * (ABNORMAL) EXT RESULT ENTRY (08/25/2024) [...] 10.7 mg/dL Phosphorus, Serum 3.5 eGFR Non-Afr Rwandan 46(L) PTH 83.5(H) PG/ML Vitamin D, 25-OH, Total 32.5 ng/mL Hemoglobin A1C 10.2(A) 4.0 - 6.0 Protein Urine Random 58(H) Creatinine, Urine Random 96.50 mg/dL Urine Protein/Creatini ne Ratio 0.6(H) mg/g creat Bilirubin, UA Negative Ketones, UA Negative Urine Specific [place] 1.14 pH, UA 5.5 Protein, UA 30 1+ mg/dL Urobilinogen, UA Normal Nitrite, UA Negative Leukocytes, UA 500 RBC, Urine 5-10(A) None Seen, Occasional, 1-5 /HPF Bacteria, Urine Moderate(A) None Seen, Occasional /HPF Triglycerides 67 Cholesterol, Total 150 HDL 68 mg/dL LDL-Calculated 69 Glucose, Urine 70 Blood, Urine 0.03 WBC, Urine PACKED Squamous Epithelial Cells (#LPF) Ur PACKED FIELD 08/25/2024 us Historical Provider LAB BLOOD ORDERABLES Adelita l Result from Last 3 Months or Most Recently Relevant to Health Maintenance [id number] Care Teams Director Of Sports Medicine Relationship Specialty Start [place] [address] [place] [address] PCP - General Internal Medicine 02/19/23
--- OUTSIDE RECORDS SUMMARY | 2025-01-03 08:35 | XMS_ITS | Clinical Summary ---
Author Organization [facility] Address [address] [place] [address] Care Team Providers Care Cylinder Handler Name Role Phone Eliecer Morales MD Primary Care Provider [phone] Allergies Active Allergy Reactions Criticality Noted Date Comments Calcitonin ([place]) Anaphylaxis High 12/07/2015 Had [place] and had difficulty breathing (swollen throat). 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 Hyperlipidemia 02/14/2014 Overview (11/14/2016): Hyperlipidemia Surgical History Surgery Date Site/Laterality Comments TUBAL LIGATION UPPER GASTROINTESTINAL ENDOSCOPY COLONOSCOPY Medical History Medical History Date Comments Hx Other Medical crushed L femur ; Comments: [facility] 02/14/2014 - Hx Other Medical fractured tibia and fibula; Comments: [facility] 02/14/2014 - Hx Other Medical not claustropho bic; Comments: [facility] 02/14/2014 - GERD (gastroesophageal reflux [...] on file Legal Sex Female 7:33 PM PERSONAL LINES AP[employer]ISER Gender Identity Not on file Sexual Orientation Not on file Obstetrics History Last Filed Vital Signs Vital Sign Reading Time Taken Comments Blood Pressure 137/62 06/28/2024 7:30 PM PERSONAL [employer] Pulse 80 06/28/2024 7:30 PM [employer]ERSON[employer] AP[employer]ISER Temperature 36.8 C (98.3 F) 06/28/2024 7:30 PM PERSONAL [employer]ES AP[employer]ISER Respiratory Rate 16 06/28/2024 7:30 PM PERSONAL [employer]ES AP[employer]ISER Oxygen Saturation 98% 06/28/2024 7:30 PM PERSONAL LINES APPR[employer]ISER Inhaled Oxygen Concentration - - Weight 67.6 kg (149 lb) 06/28/2024 2:47 PM PERSONAL [employer]ES APPR[employer]ISER Height 154.9 cm (5' 1 ) 06/28/2024 2:47 PM PERSONAL [employer]ES APPRAISER Body Mass Index 28.15 06/28/2024 2:47 PM PERSONAL LINES APPRAISER Plan of Treatment Health Maintenance Due Date Last Done Comments Albumin Creatinine Ratio, Urine 1952 Breast Cancer Screening-Mammogram 1952 Colon Cancer Screening-Colonoscopy 1952 Depression Screening 1952 Fall Risk Assessment 1952 Hemoglobin A1C 1952 Hepatitis C Screening 1952 Osteoporosis Screening-Bone Density Scan 1952 eGFR 1952 Dilated Eye Exam 1952 Foot Exam 1952 Hepatitis B Screening 1970 Pneumococcal vaccine 65+ (1 of 2 - PCV) 1971 Zoster Vaccine (1 of 2) 2002 Well Visit 65+ 2017 Covid-19 Vaccine (4 - 2023-2 5 season) 2024 07/12/2022, 11/03/2020, 10/06/2020 Lipid Panel 08/20/2024 08/20/2023, 02/14/2014 Influenza Vaccine (Season Ended) 2025 07/12/2022, 06/09/2021, 06/05/2021, Additional history exists DTaP/Tdap/Td Vaccine (2 - Td or Tdap) 06/24/2027 06/24/2017 Procedures Procedure Name Priority Date/Time Associated Diagnosis Comments PLASMA LIPID PANEL Routine 02/14/2014 9: 57 AM CDT from Last 3 Months or Most Recently Relevant to Health Maintenance Results * (ABNORMAL) Plasma lipid panel (02/14/2014 9:57 AM CDT) Cholesterol 258(H) 100 - 200 mg/dl HISTORICAL RESULTS Triglycerides 377(H) 10 - 150 mg/dl HISTORICAL RESULTS HDL 45 40 - 59 mg/dl HISTORICAL RESULTS LDL 138(H) 60 - 129 mg/dl HISTORICAL RESULTS Plasma 02/14/2014 9:57 AM CDT Terri Patino TRACK SUPERVISOR LAB BLOOD ORDERABLES F inal Result HISTORICAL RESULTS from Last 3 Months or Most Recently Relevant to Health Maintenance Insurance [employer] MEDICARE ADVANTAGE Member Subscriber Plan / Payer (Ef fective 2023-Present) Name:Gena Flores Relation to Subscriber:Self Name:Gena Flores Payer ID:[id number] (NAIC) Type:[facility] MEDICARE Address: [place] [phone] [facility] MEDICARE ADVANTAGE Member Subscriber Plan / Payer (Ef fective 2023-Present) Name:Gena Flores Relation to Subscriber:Self Name:Gena Flores Payer ID:[id number] (NAIC) Type:[facility] MEDICARE Address: [place] [phone] Care Teams Cylinder Handler Relationship Specialty Start Date End Date Eliecer Morales MD PCP - General 03/14/14
--- OUTSIDE RECORDS SUMMARY | 2025-01-03 08:35 | XMS_ITS | Data Portability ---
Author Organization [facility] [employer], Main Office Address [address] [place] [address] Assessment Encounter Date Assessment Date Assessment LastModified by Organization Details LastModified Time 10/22/2022 10/22/2022 Chest x-ray Weekly blood sugars Upper endoscopy Conservative measures for GERD discussed Follow-up in 6 weeks Continue current therapy [email or web address] Not available 11/02/2022 13:10:04 12/09/2022 12/09/2022 Blood work done by Renal follow-up with me in 4 months [email or web address] Not available 01/18/2023 15:21:54 04/14/2023 04/14/2023 Last A1c 7.1 by home health nurse Urology for her urinary incontinence. She has had recalcitrant GERD so abdomen is get her seen by GI other medical problems discussed medicines to continue in follow-up in 4 months [email or web address] Not available 04/14/2023 10:23:19 07/06/2023 07/06/2023 L-spine CT scan CBC home health for uncontrolled diabetes and physical therapy report back by phone in 48-72 hours with update. Baclofen. Hydrocodone Tylenol for pain Zofran for nausea vomiting [email or web address] Not available 07/06/2023 22:55:46 Plan of Treatment Reminders Order Date Submit Date Provider Last Modified By Organization Details Last Modified Time Details Appointments New Patient 15 2024 09:15A Kimberlee Narayanan DPM Not available Not available Not available Lab CBC w/ auto diff 2022 023 [facility] (Lab), [address] [place], [address], 07/06/2023 14:14:20 CMP, serum or plasma 2022 023 [facility] (Lab), [address] [place], [address], 07/06/2023 15:19:11 Referral physical therapist referral 2022 023 [email or web address] [facility], [address] [place], [address], 08/06/2023 10:55:07 senior care referral 2022 023 [facility], [address] [place], [address], 04/27/2024 18:19:48 urologist referral 2022 023 [email or web address] Abelardo Irizarry MD, [address] [facility] [address], [place], [address], 04/27/2024 18:19:47 Procedures upper endoscopy procedure (EGD) (PROC) 2022 023 agnes Romero MD, [address] [facility] [address], [place], [address], 09/11/2023 08:54:42 upper endoscopy procedure (EGD) (PROC) 2022 023 [email or web address] Davis MD, [address] [facility], [address], [place], [address], 11/19/2022 09:29:04 Surgeries None recorded. Imaging CT, lumbar spine, w/o contrast 2022 023 [facility]), [address] [place], [address], 07/06/2023 14:29:09 XR, chest, 2 view 2022 023 [facility] ([facility]), [address] [place], [address], 10/28/2022 13:04:04 Medication Orders Ozempic 0.25 mg or 0.5 mg (2 mg/1.5 mL) subcutane ous pen injector 2022 023 [email or web address] [facility] [address] [place], [address], 04/14/2023 10:05:25 Basaglar KwikPen U-100 Insulin 100 unit/mL (3 mL) subcutane ous 2022 023 [email or web address] [facility] [address], [address] [place], [address], 10/22/2022 12:10:36 Patient TargetsNo targets recorded. Patient InstructionsNo instructions recorded. Reason for Referral Urologist Referral for Urina ry incontinence Referring Physician: Eliecer Morales, Internal Medicine, Encounter Date: 04/14/2023 Physical Therapist Referral for Fall Referring Physician: Eliecer Morales, Internal Medicine, Encounter Date: 07/06/2023 Intermediate Referral for Uncontrolled type 2 diabetes mellitus Referring Physician: Eliecer Morales, Internal Medicine, Encounter Date: 07/06/2023 Results Created Date Observation Date Name Description Value Unit Range Abnormal Flag Note LastModifiedBy Organization Detail LastModifiedTime 07/06/2007/06/2023 CBC/C OMPLE TE BLD COUNT W/DIF F white blood cells 8.6 x10'3 /uL 4.2-10 .8 Not Available [facility] (Lab) [address] [place], [address], 07/06/2023 14:14:20 07/06/20 23 07/06/2023 CBC/C OMPLE TE BLD COUNT W/DIF F red blood cells 3.12 x10'6 /uL 3.80-5 .20 low Not Available [facility] (Lab) [address] [place], [address], 07/06/2023 14:14:20 07/06/20 23 07/06/2023 CBC/C OMPLE TE BLD COUNT W/DIF F hemoglobin 9.4 g/dL 12.0-1 5.6 low Not Available [facility] (Lab) [address] [place], [address], 07/06/2023 14:14:20 07/06/20 23 07/06/2023 CBC/C OMPLE TE BLD COUNT W/DIF F hematocrit 30.1 % 35.7-4 5.7 low Not Available [facility] (Lab) [address] [place], [address], 07/06/2023 14:14:20 07/06/20 23 07/06/2023 CBC/C OMPLE TE BLD COUNT W/DIF F mean red cell volume 96.5 fL 82.0-9 9.0 Not Available [facility] (Lab) [address] [place], [address], 07/06/2023 14:14:20 07/06/20 23 07/06/2023 CBC/C OMPLE TE BLD COUNT W/DIF F mean red cell hemoglobin 30.1 pg 27.0-3 3.0 Not Available [facility] (Lab) [address] [place], [address], 07/06/2023 14:14:20 07/06/20 23 07/06/2023 CBC/C OMPLE TE BLD COUNT W/DIF F mean RBC HGB concentratio n 31.2 g/dL 31.0-3 6.0 Not Available [facility] (Lab) [address] [place], [address], 07/06/2023 14:14:20 07/06/20 23 07/06/2023 CBC/C OMPLE TE BLD COUNT W/DIF F red cell distribution width 14.3 % 11.8-1 5.5 Not Available [facility] (Lab) [address] [place], [address], 07/06/2023 14:14:20 07/06/20 23 07/06/2023 CBC/C OMPLE TE BLD COUNT W/DIF F platelets 355 x10'3 /uL 150-40 0 Not Available [facility] (Lab) [address] [place], [address], 07/06/2023 14:14:20 07/06/20 23 07/06/2023 CBC/C OMPLE TE BLD COUNT W/DIF F mean platelet volume 12.6 fL 9.0-12 .4 high Not Available [facility] (Lab) [address] [place], [address], 07/06/2023 14:14:20 07/06/20 23 07/06/2023 CBC/C OMPLE TE BLD COUNT W/DIF F neutrophils 69.5 % 39.0-7 2.0 Not Available [facility] (Lab) [address] [place], [address], 07/06/2023 14:14:20 07/06/20 23 07/06/2023 CBC/C OMPLE TE BLD COUNT W/DIF F lymphocytes 22.2 % 16.0-4 7.0 Not Available [facility] (Lab) [address] [place], [address], 07/06/2023 14:14:20 07/06/20 23 07/06/2023 CBC/C OMPLE TE BLD COUNT W/DIF F monocytes 4.9 % 5.0-12 .0 low Not Available [facility] (Lab) [address] [place], [address], 07/06/2023 14:14:20 07/06/20 23 07/06/2023 CBC/C OMPLE TE BLD COUNT W/DIF F eosinophils 2.6 % 1.0-7. 0 Not Available [facility] (Lab) [address] [place], [address], 07/06/2023 14:14:20 07/06/20 23 07/06/2023 CBC/C OMPLE TE BLD COUNT W/DIF F basophils 0.3 % 0.0-2. 0 Not Available [facility] (Lab) [address] [place], [address], 07/06/2023 14:14:20 07/06/20 23 07/06/2023 CBC/C OMPLE TE BLD COUNT W/DIF F immature granulocytes 0.5 % 0.00-0 .50 Not Available [facility] (Lab) [address] [place], [address], 07/06/2023 14:14:20 07/06/20 23 07/06/2023 CBC/C OMPLE TE BLD COUNT W/DIF F neutrophils, absolute count 5.97 x10'3 /uL 1.5-8. 0 Not Available [facility] (Lab) [address] [place], [address], 07/06/2023 14:14:20 07/06/20 23 07/06/2023 CBC/C OMPLE TE BLD COUNT W/DIF F lymphocytes, absolute count 1.91 x10'3 /uL 1.07-3 .43 Not Available [facility] (Lab) [address] [place], [address], 07/06/2023 14:14:20 07/06/20 23 07/06/2023 CBC/C OMPLE TE BLD COUNT W/DIF F monocytes, absolute count 0.42 x10'3 /uL 0.29-0 .99 Not Available [facility] (Lab) [address] [place], [address], 07/06/2023 14:14:20 07/06/20 23 07/06/2023 CBC/C OMPLE TE BLD COUNT W/DIF F eosinophils, absolute count 0.22 x10'3 /uL 0.02-0 .53 Not Available [facility] (Lab) [address] [place], [address], 07/06/2023 14:14:20 07/06/20 23 07/06/2023 CBC/C OMPLE TE BLD COUNT W/DIF F basophils, absolute count 0.03 x10'3 /uL 0.01-0 .08 Not Available [facility] (Lab) [address] [place], [address], 07/06/2023 14:14:20 07/06/20 23 07/06/2023 CBC/C OMPLE TE BLD COUNT W/DIF F immature granulocytes ,absolute 0.04 x10'3 /uL 0.00-0 .05 Not Available [facility] (Lab) [address] [place], [address], 07/06/2023 14:14:20 07/06/20 23 07/06/2023 CBC/C OMPLE TE BLD COUNT W/DIF F nucleated red blood cells 0.0 % -0 Not Available [facility] (Lab) [address] [place], [address], 07/06/2023 14:14:20 07/06/20 23 07/06/2023 CBC/C OMPLE TE BLD COUNT W/DIF F NRBC# 0.00 x10'3 /uL Not Available [facility] (Lab) [address] [place], [address], 07/06/2023 14:14:20 07/06/20 23 07/06/2023 COMPR EHENS PRINCE METAB OLIC PANEL sodium 140 mmol/ L 137-14 5 Not Available [facility] (Lab) [address] [place], [address], 07/06/2023 15:19:11 07/06/20 23 07/06/2023 COMPR EHENS PRINCE METAB OLIC PANEL potassium 4.6 mmol/ L 3.5-5. 1 Not Available [facility] (Lab) [address] [place], [address], 07/06/2023 15:19:11 07/06/20 23 07/06/2023 COMPR EHENS PRINCE METAB OLIC PANEL chloride 104 mmol/ L 98-107 Not Available [facility] (Lab) [address] [place], [address], 07/06/2023 15:19:11 07/06/20 23 07/06/2023 COMPR EHENS PRINCE METAB OLIC PANEL carbon dioxide 27 mmol/ L 22-30 Not Available [facility] (Lab) [address] [place], [address], 07/06/2023 15:19:11 07/06/20 23 07/06/2023 COMPR EHENS PRINCE METAB OLIC PANEL anion gap 13.6 mmol/ L 14-22 low Not Available [facility] (Lab) [address] [place], [address], 07/06/2023 15:19:11 07/06/20 23 07/06/2023 COMPR EHENS PRINCE METAB OLIC PANEL glucose 311 mg/dL 70-99 high Not Available [facility] (Lab) [address] [place], [address], 07/06/2023 15:19:11 07/06/20 23 07/06/2023 COMPR EHENS PRINCE METAB OLIC PANEL BUN 19 mg/dL 8-19 Not Available [facility] (Lab) [address] [place], [address], 07/06/2023 15:19:11 07/06/20 23 07/06/2023 COMPR EHENS PRINCE METAB OLIC PANEL creatinine 1.23 mg/dL 0.66-1 .25 Not Available [facility] (Lab) [address] [place], [address], 07/06/2023 15:19:11 07/06/20 07/06/2023 COMPR EHENS PRINCE METAB OLIC PANEL GFR 43 Refer ence Range : [place] GFR Healt hy Adult : >60 [...] is less accur ate, requi ring clini edy judgm ent on a case- by-ca se [...] calcu lator is avail able on the [facility] websi te: https ://carlito coronel.jose pink/pr antonio de santiago s/kdo qi/gf r_cal culat or Not Available [facility] (Lab) [address] [place], [address], 07/06/2023 15:19:11 07/06/20 23 07/06/2023 COMPR EHENS PRINCE METAB OLIC PANEL alkaline phosphatase 108 U/L 38-126 Not Available [facility] (Lab) [address] [place], [address], 07/06/2023 15:19:11 07/06/20 23 07/06/2023 COMPR EHENS PRINCE METAB OLIC PANEL alanine aminotransfe rase 28 U/L 0-35 Not Available [facility] (Lab) [address] [place], [address], 07/06/2023 15:19:11 07/06/20 23 07/06/2023 COMPR EHENS PRINCE METAB OLIC PANEL aspartate aminotransfe rase 30 U/L 15-37 Not Available [facility] (Lab) [address] [place], [address], 07/06/2023 15:19:11 07/06/20 23 07/06/2023 COMPR EHENS PRINCE METAB OLIC PANEL bilirubin, total 0.50 mg/dL 0.20-1 .30 Not Available [facility] (Lab) [address] [place], [address], 07/06/2023 15:19:11 07/06/20 23 07/06/2023 COMPR EHENS PRINCE METAB OLIC PANEL calcium 10.0 mg/dL 8.4-10 .2 Not Available [facility] (Lab) [address] [place], [address], 07/06/2023 15:19:11 07/06/20 23 07/06/2023 COMPR EHENS PRINCE METAB OLIC PANEL total protein 7.2 g/dL 6.3-8. 2 Not Available [facility] (Lab) [address] [place], [address], 07/06/2023 15:19:11 07/06/20 23 07/06/2023 COMPR EHENS PRINCE METAB OLIC PANEL albumin 3.9 g/dL 3.0-4. 4 Not Available [facility] (Lab) [address] [place], [address], 07/06/2023 15:19:11 07/06/20 23 07/06/2023 COMPR EHENS PRINCE METAB OLIC PANEL globulin 3.3 g/dL 2.6-4. 2 Not Available [facility] (Lab) [address] [place], [address], 07/06/2023 15:19:11 07/06/20 23 07/06/2023 COMPR EHENS PRINCE METAB OLIC PANEL A/G ratio 1.2 ratio 1.0-2. 0 Not Available [facility] (Lab) [address], [place], [address], 07/06/2023 15:19:11 09/02/19 23 09/02/2022 SPECT , myoca rdial perfu danya, multi ple [facility] [address], [place] [address] [phone] Paticharles t Name: GENA FLORES Access ion #: [id number] Sex: F : 1949 7 Locati [...] the same day. Page 1 of 2 [facility] Paticharles t Name: GENA FLORES Access ion #: [id number] Sex: F : 1949 7 Exam [...] signed by: William neil MD Signed Date: 10:28 AM (CT) Dictat ed by: William neil MD DD: 10:28 AM (CT) DT: 10:28 AM (CT) Page 2 of 2 [id number] [facility] (Imaging) [address] [place], [address], 10/08/2022 01:51:52 10/29/1910/28/2022 XR, chest , 2 view [facility] [address] [place] [address] [phone] Patien t Name: GENA FLORES Access ion #: [id number] Sex: F : 1949 0 Locati on: RAD Attend ing Physic olamide: BATSHEVA [facility]ORALES [facility] Physic olamide: BATSHEVA MORALES Exam Date: 023 [...] 2 view chest. Page 1 of 2 [facility] Patien t Name: FLORES , GENA A Access ion #: [id number] Sex: F : 1949 0 Exam Date: 8:19 AM Exam Name: XR CHEST 2V Admitt ing Diagno sis(es ): Create d and electr onical ly signed by: William neil MD Signed Date: 12:01 PM (CT) Dictat ed by: William neil MD DD: 12:01 PM (CT) DT: 12:01 PM (CT) Page 2 of 2 [email or web address] ([facility]) [address] [place], [address], 11/04/2022 11:45:58 07/06/20 23 07/06/2023 CT, lumba r spine , w/o contr ast [facility] [address] [place] [id number] Patien t Name: GENA FLORES Access ion #: [id number] Sex: F : 1949 6 Dictat ed By: Damon Serrano Attend ing Physic olamide: BATSHEVA MORALES Orderi ng Physic olamide: BATSHEVA MORALES Exam Date: 2022 12:38 PM Exam Name: CT L SPINE WO Admitt ing Diagno sis(es ): CT lumbar spine withou t contra st Date: 2022 12:38 PM TRASHMAN Histor y: Pain Compar karime: CT pelvis [...] centra l spinal canal or Page 1 [facility] [address] [address] Patien t Name: GENA FLORES ion #: [id number] Sex: F : 1949 6 Dictat ed By: Damon Serrano Attend ing Physic olamide: [facility] Physic olamide: BATSHEVA MORALES Exam Date: 2022 12:38 PM Exam Name: CT L SPINE WO Admitt ing Diagno sis(es ): neurof oramin al stenos is. At the L5-S1 level, there is no eviden ce of centra l spinal canal or neurof oramin al stenos is. Stable hemato ma in the flight dynamicist ior pelvic /lower abdomi nal body wall measur ing 9 cm. Impres danya: No defini te CT eviden ce of acute fractu re or disloc ation of the bony lumbar spine. Stable hemato ma in the flight dynamicist ior pelvic /lower abdomi nal body wall [...] 2022 13:27: 48 PM Page 2 [email or web address] [facility] ([facility]) [address] [facility], [place], [address], 07/06/2023 17:15:45 04/07/20 24 04/07/2024 DEXA, axial skele ton [facility] [address] [facility] [address], [place] [address] Patien t Name: GENA FLORES ion #: [id number] Sex: F : 1949 7 Dictat ed By: Eliot Yanes Attend ing Physic olamide: BATSHEVA MORALES [facility] Physic olamide: BATSHEVA MORALES Exam Date: 2023 [...] (MARIA FERNANDA) to a young adult popula tion, abdie d for sex and ethnic ity (used for postme nopaus al women and men >50 years) and classi fied by WHO criter ia. -1.0: normal <-1.0 to >-2.5: osteop enia Page 1 [facility] [address] [place] [phone] Patien t Name: SANDIP GENA Access ion #: [id number] Sex: F : 1949 7 Dictat ed By: Eliot Yanes Attend ing Physic olamide: TAMANNA CROWLEY ng Physic olamide: BATSHEVA MORALES Exam Date: 2023 [...] at 2023 10:27: 24 AM Page 2 [email or web address] [facility] (Imaging) [address] [place], [address], 04/25/2024 13:14:03 04/07/20 24 04/07/2024 scree maria del carmen breas t mila, bilat [facility] [address] [place] [phone] Patien t Name: GENA FLORES Access ion #: [id number] Sex: F : 1949 7 Dictat ed By: Adrianna Lauren Attend ing Physic olamide: BATSHEVA MORALES ng Physic olamide: BATSHEVA MORALES Exam Date: 2023 [...] at 2023 10:41: 52 AM Page 1 [facility] [address] [place] [address] Patien t Name: SANDIP GENA Hummel ion #: [id number] Sex: F : 1949 7 Dictat ed By: Adrianna Lauren Attend ing Physic olamide: TAMANNA CROWLEY [facility] Physic olamide: BATSHEVA MORALES Exam Date: 2023 09:18 AM Exam Name: MG CLARKEN BREAST MILA BILAT Admitt ing Diagno sis(es ): Page 2 [facility] (Im[facility]) [address] [place], [place], [facility], 04/25/2024 13:14:04 Result Notes None recorded. Problems Name Problem SNOMED Code Status Onset Date Resolution Date Notes Provider Name and Address Organization Details Recorded Time Herpes zoster with nervous system complica tion 995321310 Active Not Available [facility] 3 07:22:45 Disorder of shoulder 909898729 Completed Not Available [facility] 3 01:34:01 Mammogra phy abnormal 570895356 Active 2021 Not Available [facility] 3 07:22:45 Anxiety state 538460677 Active Not Available [facility] 3 07:22:45 Gastroes ophageal reflux disease 406664385 Active 2021 Not Available [facility] 3 07:22:45 Screenin g mammogra phy Active 2021 Not Available [facility] 3 07:22:46 Fracture of face bones Completed Not Available [facility] 3 01:34:02 Rib pain 409093787 Completed Not Available [facility] 3 01:34:02 Chest pain 08997984 Active 2021 Not Available [facility] 3 07:22:46 Knee pain Completed Not Available [facility] 3 01:34:02 Osteopen ia 247215249 Active 2021May 2021 BMD -1.9 Not Available [facility] 3 07:22:46 Type 2 diabetes mellitus without complica tion 254323561 Active Not Available [facility] 3 07:22:46 Dyslipid emia 713876833 Active 2018 Not Available [facility] 3 07:22:46 Acute urinary tract infectio n 639736190 Active 2022 Not Available [facility] 3 07:22:46 Type 2 diabetes mellitus 89955574 Active 2021 Not Available [facility] 3 07:22:46 Pain of shoulder region 17245824 Completed 201808/12/2019 Not Available [facility] 3 01:34:03 Herpes zoster 0078994 Completed Not Available [facility] 3 01:34:03 Cough 32740078 Active 2022 Not Available [facility] 3 07:22:46 Upper respirat ory infectio n 82519864 Active 2021 Not Available [facility] 3 07:22:46 Acute upper respirat ory infectio n 13379849 Active 2022 Not Available [facility] 3 07:22:46 [facility] hyperten danya 32008044 Active 2018 Not Available [facility] 3 07:22:46 Diabetes mellitus 58562122 Active Not Available [facility] 3 07:22:46 COVID-19 944710033 Active 2021 Not Available [facility] 3 07:22:46 Urinary incontin ence 621620001 Active 2022 Not Available [facility] 3 07:22:45 Gastroes ophageal reflux disease without esophagi tis 150319827 Active 2022 Not Available [facility] 3 07:22:46 Uncontro lled type 2 diabetes mellitus 094319547 Active 2022 Not Available [facility] 3 07:22:46 Superfic ial thrombop hlebitis 6094544 Active 2022 Not Available [facility] 3 07:22:46 Nausea and vomiting 53987056 Active 2022 Not Available [facility] 3 07:22:45 Notes:Some problems listed i n Documents: #[id number], #[id number], #[id number], #[id number], #[id number], #[id number], #[id number], #[id number], #[id number], #[id number] could not be added to this patient's chart. Please review these documents and add these problems to the patient's chart manually as needed. Problem Notes None recorded. Procedures Surgical History Date Name Laterality Status Provider Name and Address Organization Details Recorded Time 05/28/20 21 Date of Last Colonoscopy completed Not Available [facility] 10/08/2022 01:20:40 05/28/20 21 Colonoscopy completed Not Available [facility] 10/09/19 01:20:49 05/24/20 21 Most Recent Bone Density completed Not Available [facility] 10/08/2022 01:20:41 07/13/20 19 Eye Surgery completed Not Available [facility] 10/09/19 01:20:49 ligation of fallopian tube completed Not Available [facility] 10/08/2022 01:20:49 Orthopedic Surgery completed Not Available [facility] 10/08/2022 01:20:49 Imaging Results None recorded. Procedure Notes None recorded. Medical Equipment None Reported. Allergies Allergen ID Allergen Name Allergen Category Reaction Reaction Severity Criticality Documentation Date Start Date Code Code System Note Provider Name and Address Organization Details Recorded Time 2927 salmon oil food,medi cation anaphylax is moderate Not available 10/08/2022 06974 RxNorm Not Available [facility] 3 01:51:00 2928 latex environme nt,medica tion rash moderate Not available 10/08/2022 71317 91 RxNorm Not Available [facility] 3 01:51:00 Medications Name Sig Start Date Stop [...] completed Not Available Not Available Not Available Basaglbriana KwikPen U-100 Insulin 100 unit/mL (3 mL) subcutane [...] Available No t Available Fluzone High-Dose Quad (PF) 240 mcg/0.7 mL IM syringe PHARMACY [...] Heart rate Body temperature Body weight Systolic And Diastolic Provider Name and Address Organization Details Last Updated DateTime 3 29.8 kg/m2 157.48 cm 79 /min 97.2 [degF] 57559.5 6 g 136/62 mm[Hg] Not Available [facility] 3 01:21:17 Date Recorded Body height Body mass index (BMI) Body weight Body temperature Heart rate Systolic And Diastolic Provider Name and Address Organization Details Last Updated DateTime 3 157.48 cm 30.7 kg/m2 36288.5 2 g 97.4 [degF] 80 /min 146/70 mm[Hg] IDANIA Flores [facility] [employer] [facility] 3 09:54:34 Date Recorded Body height Body mass index (BMI) Body weight Body temperature Heart rate Systolic And Diastolic Provider Name and Address Organization Details Last Updated DateTime 3 157.48 cm 28.6 kg/m2 50210.5 7 g 97.7 [degF] 90 /min 136/70 mm[Hg] IDANIA Flores [facility] [employer] [facility] 3 10:04:26 Date Recorded Body height Body mass index (BMI) Body weight Body temperature Heart rate Systolic And Diastolic Provider Name and Address Organization Details Last Updated DateTime 3 157.48 cm 28.9 kg/m2 88837.5 9 g 98.2 [degF] 74 /min 134/70 mm[Hg] Loly mcfarland RN [facility] [employer] [facility] 3 10:07:33 Date Recorded Body height Body mass index (BMI) Body weight Body temperature Heart rate Systolic And Diastolic Provider Name and Address Organization Details Last Updated DateTime 3 157.48 cm 30.9 kg/m2 67949.1 1 g 98.3 [degF] 65 /min 128/62 mm[Hg] IDANIA Flores [place] [facility] [employer] 3 11:43:44 Social History Question Answer Notes LastModified by Organization Details LastModified Time Tobacco Smoking Status Former Smoker quit in 1988 Not Available [facility] 10/08/2022 01:07:47 Do You Have An Advance Directive? Yes Living Will MIGRATION.030 [id number] Information not available 10/08/2022 Are You Blind Or Do You Have Difficulty Seeing? No MIGRATION.030 953201 Information not available 10/08/2022 What Is Your Level Of Caffeine Consumption? Moderate MIGRATION.030 083556 Information not available 10/08/2022 How Much Tobacco Do You Chew? None MIGRATION.030 520913 Information not available 10/08/2022 In The 14 Days Before Symptom Onset, Have You Had Close Contact With A Laboratory-confi rmed COVID-19 While That Case Was Ill? No MIGRATION.030 078337 Information not available 10/08/2022 In The 14 Days Before Symptom Onset, Have You Had Close Contact With A Person Who Is Under Investigation For COVID-19 While That Person Was Ill? No MIGRATION.030 792145 Information not available 10/08/2022 Are You Deaf Or Do You Have Serious Difficulty Hearing? No MIGRATION.030 087493 Information not available 10/08/2022 What Type Of Diet Are You Following? REGULAR MIGRATION.030 597807 Information not available 10/08/2022 Which Illicit Or Recreational Drugs Have You Used? None MIGRATION.030 638642 Information not available 10/08/2022 What Is The Highest Grade Or Level Of School You Have Completed Or The Highest Degree You Have Received? [id number] MIGRATION.300 393644 Information not available 10/08/2022 Have There Been Any Changes To Your Family Or Social Situation? No MIGRATION.030 760440 Information not available 10/08/2022 What Is The Fluoride Status Of Your Home? Unknown MIGRATION.0301 322252 Information not available 10/08/2022 When Did You Quit Smoking? 18+yearssincelastc igarette MIGRATION.0301 078198 Information not available 10/08/2022 Are There Any Guns Present In Your Home? No MIGRATION.0301 748640 Information not available 10/08/2022 Do You Use Insect Repellent Routinely? No MIGRATION.0301 641130 Information not available 10/08/2022 [facility] MIGRATION.0301 030568 Information not available 10/08/2022 Do You Have A Medical Power Of Community Relations Director? No MIGRATION.0301 856409 Information not available 10/08/2022 What Was The Date Of Your Most Recent Tobacco Screening? 07/06/2023 [email or web address] Information not available 07/06/2023 Have You Ever Been Counseled For Unhealthy Alcohol Use? No MIGRATION.0301 197563 Information not available 10/08/2022 Do You Have Any Pets? No MIGRATION.0301 112614 Information not available 10/08/2022 What Is Your Relationship Status? MIGRATION.0301 099530 Information not available 10/08/2022 Do You Use Your Seat Belt Or Car Seat Routinely? Yes MIGRATION.0301 726364 Information not available 10/08/2022 Do You Have Smoke And Carbon Monoxide Detectors In Your Home? Yes MIGRATION.0301 888179 Information not available 10/08/2022 Are You Passively Exposed To Smoke? No MIGRATION.0301 353895 Information not available 10/08/2022 Are There Any Smokers In Your House? No MIGRATION.0301 116425 Information not available 10/08/2022 How Much Tobacco Do You Smoke? No MIGRATION.0301 605866 Information not available 10/08/2022 What Types Of Sporting Activities Do You Participate In? None MIGRATION.0301 045992 Information not available 10/08/2022 Do You Use Sunscreen Routinely? No MIGRATION.0301 249390 Information not available 10/08/2022 Has Tobacco Cessation Counseling Been Provided? No MIGRATION.0301 791809 Information not available 10/08/2022 How Many Years Have You Smoked Tobacco? 30 MIGRATION.0301 638713 Information not available 10/08/2022 Have You Recently Traveled Abroad? No MIGRATION.0301 092734 Information not available 10/08/2022 Do You Have Difficulty Walking Or Climbing Stairs? No MIGRATION.0301 685251 Information not available 10/08/2022 Do You Have Any Dietary Restrictions? No MIGRATION.0301 355426 Information not available 10/08/2022 Sex: Female Functional Status Question Answer Note LastModified by Organizat ion Details LastModified Time Do you use any illicit or recreational drugs? No MIGRATION.929750 5095 Information not available 10/08/2022 Do you or have you ever used any other forms of tobacco or nicotine? No MIGRATION.327227 4590 Information not available 10/08/2022 What is your level of alcohol consumption? Occasional MIGRATION.536431 9399 Information not available 10/08/2022 Do you or have you ever used smokeless tobacco? Never used smokeless tobacco MIGRATION.999999 0262 Information not available 10/08/2022 Do you have transportation difficulties? No MIGRATION.885471 8446 Information not available 10/08/2022 Are you able to walk? YESWOREST MIGRATION.440319 6466 Information not available 10/08/2022 Do you have difficulty doing errands alone? No MIGRATION.531200 3431 Information not available 10/08/2022 Are you able to care for yourself? Yes MIGRATION.018319 9835 Information not available 10/08/2022 What is your occupation? retired MIGRATION.223015 0338 Information not available 10/08/2022 Do you have difficulty dressing or bathing? No MIGRATION.409022 9410 Information not available 10/08/2022 Do you or have you ever used e-cigarettes or vape? Never used electronic cigarettes MIGRATION.501524 9354 Information not available 10/08/2022 What is your exercise level? Moderate MIGRATION.081725 9573 Information not available 10/08/2022 Mental Status Question Answer Note LastModified by Organizat ion Details LastModified Time Do you feel stressed (tense, restless, nervous, or anxious, or unable to sleep at night)? [id number] MIGRATION.18865902 26 Information not available 10/08/2022 Do you have difficulty concentrating, remembering or making decisions? No MIGRATION.11753574 26 Information not available 10/08/2022 Family History Relationship Description Onset Age of this Age Resolved Age Notes LastModified by Organization Details LastModified Time Mother Heart disease MIGRATION.951 [id number] Not available 10/08/2022 01:20:50 Mother Hypertensive disorder MIGRATION.229 5544334 Not available 10/08/2022 01:20:50 Father Diabetes mellitus 82 MIGRATION.640 7002987 Not available 10/08/2022 01:20:51 Sister Diabetes mellitus MIGRATION.832 4769278 Not available 10/08/2022 01:20:51 Sister Heart disease MIGRATION.688 1751586 Not available 10/08/2022 01:20:51 Daughter Diabetes mellitus MIGRATION.738 1393825 Not available 10/08/2022 01:20:51 Daughter Disease of liver MIGRATION.364 0261231 Not available 10/08/2022 01:20:51 Son Acute myeloid leukemia, disease 30 MIGRATION.282 1964062 Not available 10/08/2022 01:20:51 Medical History Condition Response NERVE DISEASE N BLINDNESS N RHEUMATIC FEVER N KIDNEY STONES N BLADDER PROBLEMS N OTHER # 1 Y POLIO N LUNG DISEASE/DISORDER N RADIATION / CHEMOTHERAPY N COPD N Other # 2 Y BLOOD DISEASES N SURGERY N EAR OR HEARING PROBLEMS N MUMPS N BOWEL PROBLEMS N DEPRESSION (INCLUDING POST ) N STROKE/TIA N ULCERS N BENIGN PROSTATIC HYPERPLASIA N MEASLES N MYOCARDIAL INFARCTION N OBESITY N GERD/NAUSEA N ANEURYSM N URINARY/BLADDER/KIDNEY PROBLEMS N INPATIENT PSYCH CARE N CORONARY ARTERY DISEASE (CAD) N ADDICTION CONCERNS N ENDOMETRIOSIS N Impotence N USE OF BLOOD THINNERS N SKIN [...] APNEA N CHICKENPOX N INFECTIOUS DISEASE N HEART ARRHYTHMIA N PROSTATE N INSOMNIA N HIGH CHOLESTEROL / HYPERLIPIDEMIA Y HYPERTHYROIDISM N EYE PROBLEMS N NEUROLOGICAL PROBLEMS N EDEMA N CHRONIC PAIN SYNDROME N HYPOTHYROIDISM N CAROTID BLOCKAGE N CONSTIPATION N BACK / NECK PROBLEMS N HAVE YOU BEEN HOSPITALIZED OR SEEN IN [facility] IN THE PAST YEAR ? N [...] N ALZHEIMER'S DISEASE N Brain Problems N HERPES N DEMENTIA N HEADACHES/MIGRAINES N SEIZURES/EPILEPSY N VASCULAR DISEASE N PACEMAKER N Blood Disorder N DIZZINESS N HEART DISEASE/HEART PROBLEMS N KIDNEY DISEASE N MULTIPLE SCLEROSIS N CARDIAC ARRHYTHMIA N CANCER: SPECIFY N ANESTHESIA COMPLICATIONS N ATRIAL FIBRILLATION N [...] 50 mcg/0.25mL dose 11/03/2020 completed Not Available [facility] 3 07:22:47 COVID-19, mRNA, LNP-S, bivalent, PF, 50 mcg/0.5 mL or 25mcg/0.25 mL dose 07/12/2022 completed Not Available [facility] 3 07:22:47 Influenza, high-dose, quadrivalent, PF 06/05/2021 completed Not Available [facility] 3 07:22:47 COVID-19, mRNA, LNP-S, PF, 100 mcg/0.5mL dose or 50 mcg/0.25mL dose 10/06/2020 completed Not Available [facility] 3 07:22:47 Influenza, high-dose, trivalent, PF 04/24/2020 completed Not Available [facility] 2022 07:22:47 MMR 10/31/2013 completed Not Available [facility] 2023 07:22:47 Past Encounters Encounter ID Performer Location Encounter Start Date Encounter Closed Date Diagnosis/Indication Diagnosis SNOMED-CT Code Diagnosis ICD10 Code Diagnosis Note [id number] Eliecer Morales MD [facility] [address] [place] [address], [facility] 15 [place] [address] 10/17/2020 00:00:00 10/17/2020 10:46:27 [id number] Eliecer Morales MD [facility] [place] [address] [place] [place] [address] 05/22/2021 00:00:00 06/10/2021 15:09:44 [id number] [facility] ic_[facility] _ATHENA_M IGRATION_ DEFAULT_1 _1 , 06/14/2021 00:00:00 06/17/2021 14:00:08 [id number] Eliecer Morales MD [facility] [place] [address] [facility] [address] [place] [address] 07/03/2021 00:00:00 07/04/2021 13:58:27 [id number] Eliecer Morales MD [facility] [address] [facility] [address] [address] 10/16/2021 00:00:00 11/09/2021 12:00:07 [id number] Eliecer Morales MD [facility] Internal [facility] [place] [address] [facility] [address] [place] [address] 04/23/2022 00:00:00 04/23/2022 10:32:13 [id number] Nathaly carmona MD [facility] Internal Med [facility] [address] [facility] [address] [address] 05/27/2022 00:00:00 05/27/2022 12:57:26 [id number] Eliecer Morales MD S_[facility] Internal [facility] [place] [address] [address] 07/15/2022 00:00:00 07/16/2022 09:12:23 [id number] Eliecer Morales MD [facility] Internal Med Diane holder [address] [facility] , [facility] [place] [address] 08/19/2022 00:00:00 08/24/2022 15:28:47 [id number] Eliecer Morales MD [facility] [place] [address] [address] 10/22/2022 09:36:48 10/22/2022 10:48:16 Cough 44914337 R05.9 Gastroesop hageal reflux disease 562306958 K21.9 Type 2 liliam betes mellitus 79547094 E11.9 Essential hypertension 26759216 I10 [id number] Eliecer Morales MD [facility] Internal Med [facility] [address] [address] 12/09/2022 09:55:17 12/09/2022 10:33:49 Dyslipidemia 096224346 E78.5 Essential hypertension 56512270 I10 Anxiety state 812412115 F41.1 Diabetes mellitus 036075 09 E11.9 Gastroesop hageal reflux disease 130841094 K21.9 [id number] Eliecer Morales MD [facility] Internal Med [facility] [address] [address] 04/14/2023 09:57:13 04/14/2023 10:15:41 Urinary incontinence 966389521 R32 Gastroesop hageal reflux disease 248908523 K21.9 Essential hypertension 43241507 I10 Osteopenia 787001597 M85 .80 [id number] Eliecer Morales MD [facility] Internal Med [facility] [address] [address] 07/06/2023 10:56:14 07/06/2023 12:26:25 Uncontrolled type 2 diabetes mellitus 868363313 E11.65 Fall 2702384 W19.XXXA Superficia l thrombophlebitis 1191205 I80.9 Nausea and vomiting 1693 1999 R11.2 Health Concerns Section Related Observation LastModified by Organization Detai ls LastModified Time None Recorded Concern Status LastModified by Organization Details LastModified Time None Recorded Advance Directives Directive Y: living will Payers Encounter Date Sequence Insurance Name Policy Number Policy Jose Covered Member ID Jose Member ID Guarantor Name 10/22/2022 1 [facility] (MEDICARE REPLACEMENT/A DVANTAGE - HMO) [id number] Gena Carmona Flores [id number] Gena Carmona Flores 12/09/2022 1 [facility] (MEDICARE REPLACEMENT/A DVANTAGE - HMO) [id number] Gena A Flores [id number] Gena A Flores 04/14/2023 1 [facility] (MEDICARE REPLACEMENT/A DVANTAGE - HMO) [id number] Gena A Flores [id number] Gena A Flores 07/06/2023 1 [facility] (MEDICARE REPLACEMENT/A DVANTAGE - HMO) [id number] Gena A Flores [id number] Gena A Flores Notes Date Note Type Note Provider Name and Address Organization Details Recorded Time 10/22/2022 text/html Dry cough at timesStill with GERD symptomsDiabetes sugar still a little bitHypertension no headache no dizzinessChronic kidney disease no nausea no vomiting no edema Eliecer Morales MD [address], [place], [address], [employer] 11/02/2022 13:10:23 12/09/2022 text/html Hypertension no headache or dizziness. Dyslipidemia try to follow a low-fat diet. Diabetes no polyphagia or hypoglycemia. GERD no nausea no vomiting. Ongoing problems with urinary incontinence. Heartburn is been hard to control Eliecer Morales MD [address], [place], [address], [employer] 01/18/2023 15:22:11 04/14/2023 text/html Hypertension no headache or dizziness. Dyslipidemia try to follow a low-fat diet. Diabetes no polyphagia or hypoglycemia. GERD no nausea no vomiting. Ongoing problems with urinary incontinence. Heartburn is been hard to control Eliecer Morales MD [address], [place], [address], [employer] 04/14/2023 10:23:59 07/06/2023 text/html Recent fall mech anical tripped giving the dog food went [facility] large hematoma her back anterior pelvis required a unit of blood pain baclofen hydrocodone given to discharge nausea and vomiting after she takes baclofen and hydrocodonePain right upper extremity where they put the blood in and IVTrouble getting aroundDiabetes uncontrolled hemoglobin A1c 9.9 in hospital Eliecer Morales MD [address], [place], [address], [employer] [facility] 07/06/2023 22:56:10 OBGyn Episode No OBEpisode recorded.
--- OUTSIDE RECORDS SUMMARY | 2025-01-03 08:35 | XMS_ITS | Referral Summary ---
Author Organization [facility] Address [address] [place] [address] Care Team Providers Care House Servant Name Role Phone Eliecer Morales MD Primary Care Provider [phone] Allergies Active Allergy Reactions Criticality Noted Date Comments Calcitonin (Hawthorne) Anaphylaxis High 12/07/2015 Had Hawthorne and had difficulty breathing (swollen throat). 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 Gender Identity Not on file Sexual Orientation Not on file Last Filed Vital Signs Vital Sign Reading Time Taken Comments Blood Pressure 137/62 06/28/2024 7:30 PM FRUIT HARVEST WORKER Pulse 80 06/28/2024 7:30 PM FRUIT HARVEST WORKER Temperature 36.8 C (98.3 F) 06/28/2024 7:30 PM FRUIT HARVEST WORKER Respiratory Rate 16 06/28/2024 7:30 PM FRUIT HARVEST WORKER Oxygen Saturation 98% 06/28/2024 7:30 PM FRUIT HARVEST WORKER Inhaled Oxygen Concentration - - Weight 67.6 kg (149 lb) 06/28/2024 2:47 PM FRUIT HARVEST WORKER Height 154.9 cm (5' 1 ) 06/28/2024 2:47 PM FRUIT HARVEST WORKER Body Mass Index 28.15 06/28/2024 2:47 PM FRUIT HARVEST WORKER Plan of Treatment Not on file Procedures [...] HISTORICAL RESULTS Plasma 02/14/2014 9:57 AM CDT us Terri Patino BEHAVIORAL HEALTH THERAPIST LAB BLOOD ORDERABLES F inal Result HISTORICAL RESULTS from Last 3 Months or Most Recently Relevant to Health Maintenance Insurance [facility] MEDICARE ADVANTAGE [facility] MEDICARE ADVANTAGE Care Teams House Servant Relationship Specialty Start Date End Date Eliecer Morales MD PCP - General 03/14/14
--- OUTSIDE RECORDS SUMMARY | 2025-01-03 08:35 | XMS_ITS | Encounter Summary ---
Author Organization [facility] [employer] [facility] Address [address] [place] [address] Phone Care Team Providers Care Carpenter Mold Name Role Phone Eliecer Morales MD Primary Care Provider [phone] Encounter Details Date Type Department Care Team (Late st Contact Info) Description 08/06/2021 Office Communication [facility] [employer] [facility] [address] [address] Jeef Chong MD [address] [place] [address] 1 [place] [address] Social History Tobacco Use Types [...] Description 02/07/2025 10:30 AM CDT Office [facility] [employer] [facility] [address] [place] [address] [address] [place] [address] Jefe Chong MD [address] [facility] 1 [place] [address] documented as of this encounter Visit Diagnoses Not on filedocumented in this encounter Care Teams Carpenter Mold Relationship Specialty Start Date End Date Eliecer Morales MD [address] [place] [address] PCP - General Internal Medicine 02/19/23 documented as of this encounter
--- OUTSIDE RECORDS SUMMARY | 2025-01-03 08:35 | XMS_ITS | CONTINUITY OF CARE DOCUMENT ---
Author Name sanaz yo Address Unknown Organization [facility] Address [address] [facility] [address] [place] [address] Phone [phone] Care Team Providers Care As400 Programmer Analyst Name Role Phone Satinder QUINTEROS, Kevin Unavailable Bruno Xie MD Unavailable JARRET NOLEN MD Unavailable [phone] PROBLEMS Condition Status Date Provider Notes Valvular [...] Kevin Rajan MD Imported from C DA: [employer] (07-Jan-2024 at 01:45:44 PM) Sleep apnea active Kevin Rajan MD ENCOUNTERS Date Type Provider Location Encounter Diag nosis - In-person encounter Office Visit Kevin Rajan MD [place] [facility] Curran's esophagusObesitycovid ;2020;HAD VACCINETobacco use, quitDiabetes mellitus, type 2HypercholesterolemiaHYPERTE NSION;neg [...] Jar ret pulse rate 71 /min Thee oxygen saturation, oximetry 99 % height E&M 61.5 [in_i] Thee y respiratory rate E&M 14 /min weight E&M 163 [lb_av] Thee ALLERGIES Allergy Name Onset Date Reaction Criticality Status HAND PERSONNEL ASSOCIATE Rash Low Criticality activ e LATEX Low [...] Kevin sharma MD cigarette use yes Thee Rameyannmarie ay smoking status Former smoker Thee Jeffers rday INSURANCE PROVIDERS Payer name Policy type / Coverage type [place] red democrat ID [employer] MEDICARE ADVANTAGE [address] 003 (HMO POS) Medicare [id number] ADVANCE DIRECTIVES Name Date DISCUSSED - NO [...]
== END 2025-01-03 08:29 | disposition home or self-care (01) ==
PROVIDERS: PCP Internal Medicine; Visit Provider Surgery
DX: K21.00 Gastro-esophageal reflux disease with esophagitis, without bleeding (principal); Z98.890 Other specified postprocedural states
CPT/HCPCS: 74246

== ENCOUNTER 2025-02-19 14:14 | Outpatient (CLI) | payer MEDICARE, SELFPAY ==
--- NOTE | ~2025-02-19 | XR_ITS ---
Right foot Technique: AP, oblique, and lateral views were obtained. Clinical History: Pain, bunion Findings: No acute fracture or dislocation is seen. There is mild hallux valgus.. Joint spaces are pr eserved without erosive or degenerative change. Soft tissues are unremarkable. Impression: Mild hallux valgus. Reviewed, dictated and finalized at location . Impression: Mild hallux valgus.
--- OUTSIDE RECORDS SUMMARY | 2025-02-19 14:19 | XMS_ITS | Clinical Summary ---
Author Organization [facility] Address [address] [address] Phone Care Team Providers Care Skein Mercerizing Machine Operator Name Role Phone Eliecer Morales MD Primary Care Provider [phone] Allergies Active Allergy Reactions Criticality Noted Date [...] 1 (one) time each day Active Multiple Vitamins-Mineral s (ICAPS AREDS 2 PO) Take by mouth 1 (one) time each day Active sertraline (ZOLOFT) 50 MG tablet Take 50 mg by mouth 1 (one) time each day Active glimepiride (AMARYL) 2 MG tablet Take 1 tablet (2 mg total) by mouth 1 (one) time each day before breakfast 90 tablet 3 3 Active Semaglutide,0.25 or 0.5MG/DOS, (Ozempic, 0.25 or 0.5 MG/DOSE,) 2 MG/1.5ML solution pen-injector Inject 0.25 mg under the skin per week Active gemfibrozil (LOPID) 600 MG tablet Take 1 tablet (600 mg total) by mouth in the morning and 1 tablet (600 mg total) in the evening. 180 tablet 4 Active losartan (COZAAR) 25 MG tablet Take [...] NEEDED FOR PAIN 30 tablet 5 Active Active Problems Problem Noted Date Diagnosed Date Anxiety state 03/14/2021 Stage 3b chronic kidney disease 03/14/2021 Depressive disorder 03/14/2021 Gastroesophageal reflux disease 03/14/2021 Hyperlipidemia 03/14/2021 Obesity 03/14/2021 Osteoarthritis 03/14/2021 Proteinuria 03/14/2021 Vitamin D deficiency 03/14/2021 Dyslipidemia 11/12/2018 Essential hypertension 11/12/2018 Type 2 diabetes mellitus 05/24/2015 Encounters Date Type Department Care Team Description 12/29/2024 Refill [facility], [address] [address] Jefe Chong MD 12/20/2024 Documentation Only [facility], [address] [address] Jefe Chong MD 12/12/2024 Refill [facility], [address] [phone] Mya Arzate CMA from Last 3 Months [...] Comments Blood Pressure 120/60 08/30/2024 10:10 AM PRACTICE ADMINISTRATOR Pulse 68 08/30/2024 10:10 AM PRACTICE ADMINISTRATOR Temperature 36.7 C (98 F) 08/30/2024 10:10 AM PRACTICE ADMINISTRATOR Respiratory Rate 18 08/30/2024 10:10 AM PRACTICE ADMINISTRATOR Oxygen Saturation 97% 08/30/2024 10:10 AM PRACTICE ADMINISTRATOR Inhaled Oxygen Concentration - - Weight 68.1 kg (150 lb 1.6 oz) 08/30/2024 10:10 AM PRACTICE ADMINISTRATOR Height 154.9 cm (5' 1) 04/26/2024 10:06 AM CDT Body Mass Index 28.36 04/26/2024 10:06 AM CDT Plan of Treatment Upcoming Encounters Date Type Department Care Team (Late st Contact Info) Description 04/11/2025 10:15 AM CDT Office Visit [facility] [address] [facility] 15 [place] [address] Jefe Chong MD [address] [address] Health Maintenance Due Date Last Done [...] 12/24/2023, 08/20/2023, Additional history exists Influenza Vaccine (#1) 2025 06/04/2020, 2019 Hepatitis B Vaccine Aged Out No longe [...] 10.7 mg/dL Phosphorus, Serum 3.5 eGFR Non-Afr Chadian 46(L) PTH 83.5(H) PG/ML Vitamin D, 25-OH, Total 32.5 ng/mL Hemoglobin A1C 10.2(A) 4.0 - 6.0 Protein Urine Random 58(H) Creatinine, Urine Random 96.50 mg/dL Urine Protein/Creatini ne Ratio 0.6(H) mg/g creat Bilirubin, UA Negative Ketones, UA Negative Urine Specific [place] 1.14 pH, UA 5.5 Protein, UA 30 [...] Most Recently [facility] to [id number] Care Teams Skein Mercerizing Machine Operator Relationship Specialty Start Date End Date Eliecer Morales MD [address] [place] [address] PCP - General Internal Medicine 02/19/23
--- OUTSIDE RECORDS SUMMARY | 2025-02-19 14:19 | XMS_ITS | Encounter Summary ---
Author Organization [facility] [employer] [facility] [employer] [facility] Address [address] [place] [phone] Phone Care Team Providers Care Varnish Supervisor Name Role Phone Eliecer Morales MD Primary Care Provider [phone] Encounter Details Date Type Department Care Team (Late st Contact Info) Description 08/06/2021 Office Communication [employer] [facility] [address] [place] [phone] Jefe Chong MD [address] [place] [phone] Social History Tobacco Use Types Packs/Day [...] Description 04/11/2025 10:15 AM CDT Office [facility] [facility] [address] [place] [address] [address] [place] [address] Jefe Chong MD [address] [facility] 1 [place] [phone] documented as of this encounter Visit Diagnoses Not on filedocumented in this encounter Care Teams Varnish Supervisor Relationship Specialty Start Date End Date Eliecer Morales MD [address] [place] [address] PCP - General Internal Medicine 02/19/23 documented as of this encounter
--- OUTSIDE RECORDS SUMMARY | 2025-02-19 14:19 | XMS_ITS | Clinical Summary ---
Author Organization [facility] Address [address] [place] [address] Care Team Providers Care Ribbon Inker Name Role Phone Eliecer Morales MD Primary Care Provider [phone] Allergies Active Allergy Reactions Criticality Noted Date Comments Calcitonin ([place]) Anaphylaxis High 12/07/2015 Had [place] and had difficulty breathing (swollen throat). Had [...] total) by mouth daily 3 Active vit C,H-Re-lpvhv-l utein-zeaxan 250-90-40-1 mg capsule Take by mouth [...] Encounters Date Type Department Care Team Description 01/04/2025 Telephone [facility] [address] [address] Jesus Claros II, MD from Last 3 Months Surgical History Surgery Date Site/Laterality Comments TUBAL LIGATION UPPER GASTROINTESTINAL ENDOSCOPY COLONOSCOPY Medical History Medical History Date Comments Hx Other Medical crushed L femur ; Comments: [facility] 02/14/2014 - Hx Other Medical fractured tibia and fibula; Comments: [facility] 02/14/2014 - Hx Other Medical not claustropho bic; Comments: [facility] 02/14/2014 - GERD (gastroesophageal reflux disease) Hiatal [...] on file Legal 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 Gender Identity Not on file Sexual Orientation Not on file Obstetrics History Last Filed Vital Signs Vital Sign Reading Time Taken Comments Blood Pressure 137/62 06/28/2024 7:30 PM CHEESE CUTTER Pulse 80 06/28/2024 7:30 PM CHEESE CUTTER Temperature 36.8 C (98.3 F) 06/28/2024 7:30 PM CHEESE CUTTER Respiratory Rate 16 06/28/2024 7:30 PM CHEESE CUTTER Oxygen Saturation 98% 06/28/2024 7:30 PM CHEESE CUTTER Inhaled Oxygen Concentration - - Weight 67.6 kg (149 lb) 06/28/2024 2:47 PM CHEESE CUTTER Height 154.9 cm (5' 1) 06/28/2024 2:47 PM CHEESE CUTTER Body Mass Index 28.15 06/28/2024 2:47 PM CHEESE CUTTER Plan of Treatment Health Maintenance Due Date [...] Lipid Panel 08/20/2024 08/20/2023, 02/14/2014 Influenza Vaccine (#1) 2025 , 06/09/2021, 06/05/2021, Additional history exists DTaP/Tdap/Td Vaccine [...] Plasma 02/14/2014 9:57 AM CDT Terri Patino CONTENT DEVELOPER LAB BLOOD ORDERABLES F inal Result HISTORICAL RESULTS from Last 3 Months or Most Recently Relevant to Health Maintenance Insurance [facility] MEDICARE ADVANTAGE [facility] MEDICARE Address: [facility] [address] [place] [address] [facility] MEDICARE ADVANTAGE Care Teams Ribbon Inker Relationship Specialty Start Date End Date Eliecer Morales MD PCP - General 03/14/14
--- OUTSIDE RECORDS SUMMARY | 2025-02-19 14:19 | XMS_ITS | Encounter Summary ---
Author Organization [employer] [facility] Address [address] [place] [phone] Phone Care Team Providers Care Color Tester Name Role Phone Eliecer Morales MD Primary Care Provider [phone] Reason for Visit * Reason Comments Med Refill Encounter Details Date Type Department Care Team (Late st Contact Info) Description 06/28/2023 Refill [place] [employer] [address] [place] [phone] [place] [address] [place] [address] [address] [place] [address] Social History Tobacco Use Types [...] Description 04/11/2025 10:15 AM CDT Office Visit [place] [employer] [facility] [address] [facility] [address] [place] [address] Jefe Chong MD [address] [facility] 1 [place] [address] documented as of this encounter Visit Diagnoses Not on filedocumented in this encounter Care Teams Color Tester Relationship Specialty Start Date End Date Eliecer Morales MD [address] [place] [address] PCP - General Internal Medicine 02/19/23 documented as of this encounter
--- OUTSIDE RECORDS SUMMARY | 2025-02-19 14:19 | XMS_ITS | Referral Summary ---
Author Organization [facility] Address [address] [place] [address] Care Team Providers Care Preparer Samples And Repairs Name Role Phone Eliecer Morales MD Primary Care Provider [phone] Encounters Date Type Department Care Team Description 01/04/2025 Telephone [facility] [address] [address] Jesus Claros II, MD from Last 3 Months Allergies Active Allergy Reactions Criticality Noted Date Comments Calcitonin ([place]) Anaphylaxis High 12/07/2015 Had [place] and had difficulty breathing (swollen throat). Had [...] total) by mouth daily 3 Active vit C,I-Xr-vbxqp-l utein-zeaxan 250-90-40-1 mg capsule Take by mouth [...] on file Legal Sex Female 7:33 PM SPECIAL COLLECTIONS LIBRARIAN Gender Identity Not on file Sexual Orientation Not on file Last Filed Vital Signs Vital Sign Reading Time Taken Comments Blood Pressure 137/62 06/28/2024 7:30 PM SPECIAL COLLECTIONS LIBRARIAN Pulse 80 06/28/2024 7:30 PM SPECIAL COLLECTIONS LIBRARIAN Temperature 36.8 C (98.3 F) 06/28/2024 7:30 PM SPECIAL COLLECTIONS LIBRARIAN Respiratory Rate 16 06/28/2024 7:30 PM SPECIAL COLLECTIONS LIBRARIAN Oxygen Saturation 98% 06/28/2024 7:30 PM SPECIAL COLLECTIONS LIBRARIAN Inhaled Oxygen Concentration - - Weight 67.6 kg (149 lb) 06/28/2024 2:47 PM SPECIAL COLLECTIONS LIBRARIAN Height 154.9 cm (5' 1) 06/28/2024 2:47 PM SPECIAL COLLECTIONS LIBRARIAN Body Mass Index 28.15 06/28/2024 2:47 PM SPECIAL COLLECTIONS LIBRARIAN Plan of Treatment Not on file Procedures [...] Plasma 02/14/2014 9:57 AM CDT Terri Patino CAR WORKER LAB BLOOD ORDERABLES F inal Result Performing Organization Address [facility]/State/[facility] Co de Phone Number HISTORICAL RESULTS from Last 3 Months or Most Recently Relevant to Health Maintenance Insurance [facility] MEDICARE ADVANTAGE [facility] MEDICARE ADVANTAGE Care Teams Preparer Samples And Repairs Relationship Specialty Start Date End Date Eliecer Morales MD PCP - General 03/14/14
--- OUTSIDE RECORDS SUMMARY | 2025-02-19 14:19 | XMS_ITS | Data Portability ---
Author Organization [facility] [employer], Main Office Address [address] [place] [address] Care Team Providers Care Medical Insurance Coding Specialist Name Role Phone JARRET MORALES Primary Care Provider [phone] JARRET MORALES Referring Provider Assessment Encounter Date Assessment Date Assessment LastModified by Organization Details LastModified Time 10/22/2022 10/22/2022 Chest x-ray Weekly blood sugars Upper endoscopy Conservative measures for GERD discussed Follow-up in 6 weeks Continue current therapy [email or web address] Not available 11/02/2022 13:10:04 12/09/2022 12/09/2022 Blood work done by Renal follow-up with me in 4 months [email or web address] Not available 01/18/2023 15:21:54 04/14/2023 04/14/2023 Last A1c 7.1 by home health nurse Urology for her urinary incontinence. She has had recalcitrant GERD so abdomen is get her seen by GI other medical problems discussed medicines to continue in follow-up in 4 months [email or web address] Not available 04/14/2023 10:23:19 07/06/2023 07/06/2023 L-spine CT scan [facility] health for uncontrolled diabetes and physical therapy report back by phone in 48-72 hours with update. Baclofen. Hydrocodone Tylenol for pain Zofran for nausea vomiting [email or web address] Not available 07/06/2023 22:55:46 02/09/2025 02/09/2025 Patient returns for nail procedure. Patient understands all risks, benefits, complications of the planned procedure. Patient elects to continue despite possible risks. Patient's risks include but not limited to the following- pain, infection, non-healing wound, loss of toe, scar, nail deformity, continued nail growth. [email or web address] Not available 02/09/2025 11:08:35 Plan of Treatment Reminders Order Date Submit Date Provider Last Modified By Organization Details Last Modified Time Details Appointments Establish ed Patient 15 2024 03:00P Kimberlee Narayanan DPM Not available Not available Not available Lab CBC w/ auto diff 2022 023 [facility] (Lab), [address] [place], [address], 07/06/2023 14:14:20 CMP, serum or plasma 2022 023 [facility] (Lab), [address] [place], [address], 07/06/2023 15:19:11 Referral physical therapist referral 2022 023 [email or web address] [facility], [address] [place], [address], 08/06/2023 10:55:07 m[facility] referral 2022 023 [email or web address] [facility], [address] [place], [address], 04/27/2024 18:19:48 urologist referral 2022 023 [email or web address] Abelardo Irizarry MD, [address], [address], [place], [address], 04/27/2024 18:19:47 Procedures upper endoscopy procedure (EGD) (PROC) 2022 023 agnes Romero MD, [address], [address], [place], [address], 09/11/2023 08:54:42 upper endoscopy procedure (EGD) (PROC) 2022 023 [email or web address] Davis MD, [address], [place], [address], 11/19/2022 09:29:04 Surgeries None recorded. Imaging XR, foot, 3 or more view - bunion 2024 025 [email or web address] [facility] ([facility] Call Scheduling), [address] [place], [address], 02/09/2025 11:12:19 CT, lumbar spine, w/o contrast 2022 023 [facility] (One Call Scheduling), [address] [place], [address], 07/06/2023 14:29:09 XR, chest, 2 view 2022 023 [facility] (One Call Scheduling), [address] [place], [address], 10/28/2022 13:04:04 Medication Orders Ozempic 0.25 mg or 0.5 mg (2 mg/1.5 mL) subcutane ous pen injector 2022 023 [email or web address] [facility], [address] [place] [address], [address], 04/14/2023 10:05:25 Basaglar KwikPen U-100 Insulin 100 unit/mL (3 mL) subcutane ous 2022 023 [email or web address] [facility], [address] [place] [address], [address], 10/22/2022 12:10:36 Patient TargetsNo targets recorded. Patient InstructionsNo instructions recorded. Reason for Referral Urologist Referral for Urina ry incontinence Referring Physician: Jarret Morales, Internal Medicine, Encounter Date: 04/14/2023 Physical Therapist Referral for Fall Referring Physician: Jarret Morales, Internal Medicine, Encounter Date: 07/06/2023 Assisted Referral for Uncontrolled type 2 diabetes mellitus Referring Physician: Jarret Morales, Internal Medicine, Encounter Date: 07/06/2023 Results Created Date Observation Date Name Description Value Unit Range Abnormal Flag Note LastModifiedBy Organization Detail LastModifiedTime 07/06/2007/06/2023 CBC/C OMPLE TE BLD COUNT W/DIF F white blood cells 8.6 x10'3 /uL 4.2-10 .8 Not Available [facility] (Lab) [address] [place], [address], 07/06/2023 14:14:20 07/06/20 23 07/06/2023 CBC/C OMPLE TE BLD COUNT W/DIF F red blood cells 3.12 x10'6 /uL 3.80-5 .20 low Not Available [facility] (Lab) [address] [place], [address], 07/06/2023 14:14:20 07/06/20 23 07/06/2023 CBC/C OMPLE TE BLD COUNT W/DIF F hemoglobin 9.4 g/dL 12.0-1 5.6 low Not Available [facility] (Lab) [address] [place], [address], 07/06/2023 14:14:20 07/06/20 23 07/06/2023 CBC/C OMPLE TE BLD COUNT W/DIF F hematocrit 30.1 % 35.7-4 5.7 low Not Available [facility] (Lab) [address] [place], [address], 07/06/2023 14:14:20 07/06/20 23 07/06/2023 CBC/C OMPLE TE BLD COUNT W/DIF F mean red cell volume 96.5 fL 82.0-9 9.0 Not Available [facility] (Lab) [address] [place], [address], 07/06/2023 14:14:20 07/06/20 23 07/06/2023 CBC/C OMPLE TE BLD COUNT W/DIF F mean red cell hemoglobin 30.1 pg 27.0-3 3.0 Not Available [facility] (Lab) [address] [place], [address], 07/06/2023 14:14:20 07/06/20 23 07/06/2023 CBC/C OMPLE TE BLD COUNT W/DIF F mean RBC HGB concentratio n 31.2 g/dL 31.0-3 6.0 Not Available [facility] (Lab) [address] [place], [address], 07/06/2023 14:14:20 07/06/20 23 07/06/2023 CBC/C OMPLE TE BLD COUNT W/DIF F red cell distribution width 14.3 % 11.8-1 5.5 Not Available [facility] (Lab) [address] [place], [address], 07/06/2023 14:14:20 07/06/20 23 07/06/2023 CBC/C OMPLE TE BLD COUNT W/DIF F platelets 355 x10'3 /uL 150-40 0 Not Available [facility] (Lab) [address] [place], [address], 07/06/2023 14:14:20 07/06/20 23 07/06/2023 CBC/C OMPLE TE BLD COUNT W/DIF F mean platelet volume 12.6 fL 9.0-12 .4 high Not Available [facility] (Lab) [address] [place], [address], 07/06/2023 14:14:20 07/06/20 23 07/06/2023 CBC/C OMPLE TE BLD COUNT W/DIF F neutrophils 69.5 % 39.0-7 2.0 Not Available [facility] (Lab) [address] [place], [address], 07/06/2023 14:14:20 07/06/20 23 07/06/2023 CBC/C OMPLE TE BLD COUNT W/DIF F lymphocytes 22.2 % 16.0-4 7.0 Not Available [facility] (Lab) [address] [place], [address], 07/06/2023 14:14:20 07/06/20 23 07/06/2023 CBC/C OMPLE TE BLD COUNT W/DIF F monocytes 4.9 % 5.0-12 .0 low Not Available [facility] (Lab) [address] [place], [address], 07/06/2023 14:14:20 07/06/20 23 07/06/2023 CBC/C OMPLE TE BLD COUNT W/DIF F eosinophils 2.6 % 1.0-7. 0 Not Available [facility] (Lab) [address] [place], [address], 07/06/2023 14:14:20 07/06/2007/06/2023 CBC/C OMPLE TE BLD COUNT W/DIF F basophils 0.3 % 0.0-2. 0 Not Available [facility] (Lab) [address] [place], [address], 07/06/2023 14:14:20 07/06/20 23 07/06/2023 CBC/C OMPLE TE BLD COUNT W/DIF F immature granulocytes 0.5 % 0.00-0 .50 Not Available [facility] (Lab) [address] [place], [address], 07/06/2023 14:14:20 07/06/20 23 07/06/2023 CBC/C OMPLE TE BLD COUNT W/DIF F neutrophils, absolute count 5.97 x10'3 /uL 1.5-8. 0 Not Available [facility] (Lab) [address] [place], [address], 07/06/2023 14:14:20 07/06/20 23 07/06/2023 CBC/C OMPLE TE BLD COUNT W/DIF F lymphocytes, absolute count 1.91 x10'3 /uL 1.07-3 .43 Not Available [facility] (Lab) [address] [place], [address], 07/06/2023 14:14:20 07/06/20 23 07/06/2023 CBC/C OMPLE TE BLD COUNT W/DIF F monocytes, absolute count 0.42 x10'3 /uL 0.29-0 .99 Not Available [facility] (Lab) [address] [place], [address], 07/06/2023 14:14:20 07/06/20 23 07/06/2023 CBC/C OMPLE TE BLD COUNT W/DIF F eosinophils, absolute count 0.22 x10'3 /uL 0.02-0 .53 Not Available [facility] (Lab) [address] [place], [address], 07/06/2023 14:14:20 07/06/20 23 07/06/2023 CBC/C OMPLE TE BLD COUNT W/DIF F basophils, absolute count 0.03 x10'3 /uL 0.01-0 .08 Not Available [facility] (Lab) [address] [place], [address], 07/06/2023 14:14:20 07/06/20 23 07/06/2023 CBC/C OMPLE TE BLD COUNT W/DIF F immature granulocytes ,absolute 0.04 x10'3 /uL 0.00-0 .05 Not Available [facility] (Lab) [address] [place], [address], 07/06/2023 14:14:20 07/06/20 23 07/06/2023 CBC/C OMPLE TE BLD COUNT W/DIF F nucleated red blood cells 0.0 % -0 Not Available [facility] (Lab) [address] [place], [address], 07/06/2023 14:14:20 07/06/20 23 07/06/2023 CBC/C OMPLE TE BLD COUNT W/DIF F NRBC# 0.00 x10'3 /uL Not Available [facility] (Lab) [address] [place], [address], 07/06/2023 14:14:20 07/06/20 23 07/06/2023 COMPR EHENS PRINCE METAB OLIC PANEL sodium 140 mmol/ L 137-14 5 Not Available [facility] (Lab) [address] [place], [address], 07/06/2023 15:19:11 07/06/20 23 07/06/2023 COMPR EHENS PRINCE METAB OLIC PANEL potassium 4.6 mmol/ L 3.5-5. 1 Not Available [facility] (Lab) [address] [place], [address], 07/06/2023 15:19:11 07/06/20 23 07/06/2023 COMPR EHENS PRINCE METAB OLIC PANEL chloride 104 mmol/ L 98-107 Not Available [facility] (Lab) [address] [place], [address], 07/06/2023 15:19:11 07/06/20 23 07/06/2023 COMPR EHENS PRINCE METAB OLIC PANEL carbon dioxide 27 mmol/ L 22-30 Not Available [facility] (Lab) [address] [place], [address], 07/06/2023 15:19:11 07/06/20 23 07/06/2023 COMPR EHENS PRINCE METAB OLIC PANEL anion gap 13.6 mmol/ L 14-22 low Not Available [facility] (Lab) [address] [place], [address], 07/06/2023 15:19:11 07/06/20 23 07/06/2023 COMPR EHENS PRINCE METAB OLIC PANEL glucose 311 mg/dL 70-99 high Not Available [facility] (Lab) [address] [place], [address], 07/06/2023 15:19:11 07/06/20 23 07/06/2023 COMPR EHENS PRINCE METAB OLIC PANEL BUN 19 mg/dL 8-19 Not Available [facility] (Lab) [address] [place], [address], 07/06/2023 15:19:11 07/06/20 23 07/06/2023 COMPR EHENS PRINCE METAB OLIC PANEL creatinine 1.23 mg/dL 0.66-1 .25 Not Available [facility] (Lab) [address] [place], [address], 07/06/2023 15:19:11 07/06/20 23 07/06/2023 COMPR EHENS PRINCE METAB OLIC PANEL GFR 43 Refer ence Range : [place] GFR Healt hy Adult : >60 [...] or ethni c subgr oups, such as [facility] nics. Outsi de the valid ated brad [...] calcu lator is avail able on the [facility] websi te: https ://carlito coronel.jose pink/pr surinderess ional s/kdo qi/gf r_cal culat or Not Available [facility] (Lab) [address] [place], [address], 07/06/2023 15:19:11 07/06/20 23 07/06/2023 COMPR EHENS PRINCE METAB OLIC PANEL alkaline phosphatase 108 U/L 38-126 Not Available [facility] (Lab) [address] [place], [address], 07/06/2023 15:19:11 07/06/20 23 07/06/2023 COMPR EHENS PRINCE METAB OLIC PANEL alanine aminotransfe rase 28 U/L 0-35 Not Available [facility] (Lab) [address] [place], [address], 07/06/2023 15:19:11 07/06/20 23 07/06/2023 COMPR EHENS PRINCE METAB OLIC PANEL aspartate aminotransfe rase 30 U/L 15-37 Not Available [facility] (Lab) [address] [place], [address], 07/06/2023 15:19:11 07/06/20 23 07/06/2023 COMPR EHENS PRINCE METAB OLIC PANEL bilirubin, total 0.50 mg/dL 0.20-1 .30 Not Available [facility] (Lab) [address] [place], [address], 07/06/2023 15:19:11 07/06/20 23 07/06/2023 COMPR EHENS PRINCE METAB OLIC PANEL calcium 10.0 mg/dL 8.4-10 .2 Not Available [facility] (Lab) [address] [place], [address], 07/06/2023 15:19:11 07/06/20 23 07/06/2023 COMPR EHENS PRINCE METAB OLIC PANEL total protein 7.2 g/dL 6.3-8. 2 Not Available [facility] (Lab) [address] [place], [address], 07/06/2023 15:19:11 07/06/20 23 07/06/2023 COMPR EHENS PRINCE METAB OLIC PANEL albumin 3.9 g/dL 3.0-4. 4 Not Available [facility] (Lab) [address] [place], [address], 07/06/2023 15:19:11 07/06/20 23 07/06/2023 COMPR EHENS PRINCE METAB OLIC PANEL globulin 3.3 g/dL 2.6-4. 2 Not Available [facility] (Lab) [address] [place], [address], 07/06/2023 15:19:11 07/06/20 23 07/06/2023 COMPR EHENS PRINCE METAB OLIC PANEL A/G ratio 1.2 ratio 1.0-2. 0 Not Available [facility] (Lab) [address] [place], [address], 07/06/2023 15:19:11 10/29/19 23 10/28/2022 XR, chest , 2 view [facility] [address] [place], [place] [id number] Patien t Name: GENA FLORES Access ion #: [id number] Sex: F : 1949 0 Locati [...] 2 view chest. Page 1 of 2 [facility] Patien t Name: GENA FLORES A Access ion #: [id number] Sex: F : 1949 0 Exam Date: 8:19 AM Exam Name: XR CHEST 2V Admitt ing Diagno sis(es ): Create d and electr onical ly signed by: William neil MD Signed Date: 12:01 PM (CT) Dictat ed by: William neil MD DD: 12:01 PM (CT) DT: 12:01 PM (CT) Page [facility] [address] [facility] [address] [facility] [address] [place] [address], [address], 11/04/2022 11:45:58 07/06/20 23 07/06/2023 CT, lumba r spine , w/o contr ast [facility] [address] Patien t Name: GENA FLORES Access ion #: [id number] Sex: F : 1949 6 Dictat ed By: Damon Serrano Attend ing Physic olamide: BATSHEVA MORALES Orderi Physic olamide: BATSHEVA MORALES Exam Date: 2022 12:38 PM Exam Name: CT L SPINE WO Admitt ing Diagno sis(es ): CT lumbar spine withou t contra st Date: 2022 12:38 PM [employer]IL[employer] PRINTER Histor y: Pain Compar karime: CT pelvis [...] or Page 1 [facility] [address] [address] Patien t Name: GENA FLORES ion #: [id number] Sex: F : 1949 6 Dictat ed By: Damon Serrano Attend ing Physic olamide: TAMANNA CROWLEY [facility] Physic olamide: BATSHEVA MORALES Exam Date: 2022 12:38 PM Exam Name: CT L SPINE WO Admitt ing Diagno sis(es ): neurof oramin al stenos is. At the L5-S1 level, there is no eviden ce of centra l spinal canal or neurof oramin al stenos is. Stable hemato ma in the nike athlete ior pelvic /lower abdomi nal body wall measur ing 9 cm. Impres danya: No defini te CT eviden ce of acute fractu re or disloc ation of the bony lumbar spine. Stable hemato ma in the nike athlete ior pelvic /lower abdomi nal body wall measur ing [address] [facility] ty are perfor med using dose [...] 2022 13:27: 48 PM Page 2 [email or web address] [facility] (Imaging) [address] [place], [address], 07/06/2023 17:15:45 04/07/20 24 04/07/2024 DEXA, axial skele ton [facility] [address] [address] [phone] Patien t Name: GENA FLORES Estephanie ion #: [id number] Sex: F : 1949 7 Dictat ed By: Eliot Yanes Attend ing Physic olamide: BATSHEVA [facility]ES [facility]: BATSHEVA MORALES Exam Date: [...] ent. T-scor e: compar karime by corinne st deviat ion (SD) to a young adult popula tion, matche d for sex and ethnic ity (used for postme nopaus al women and men >50 years) and classi fied by WHO criter ia. -1.0: normal <-1.0 to >-2.5: osteop enia Page 1 [facility] [address] [phone] Patien t Name: GENA FLORES Access ion #: [id number] Sex: F : 1949 7 Dictat ed By: Eliot Yanes Attend ing Physic olamide: [facility] Physic olamide: BATSHEVA MORALES Exam Date: [...] at 2023 10:27: 24 AM Page 2 [email or web address] [facility] (Imaging) [address] [place], [address], 04/25/2024 13:14:03 04/07/20 24 04/07/2024 screemely jean mila, bilat [facility] [address] [place] [address] [phone] Patien t Name: GENA FLORES Access ion #: [id number] Sex: F : 1949 7 Dictat ed By: Adrianna Lauren Attend ing Physic olamide: BATSHEVA MORALES Physic olamide: BATSHEVA MORALES Exam Date: 2023 09:18 AM Exam Name: SCRN BREAST MILA BILAT Admitt ing Diagno [...] at 2023 10:41: 52 AM Page 1 [facility] [address] [place] [address] Patien t Name: GENA FLORES Estephanie kirk #: [id number] Sex: F : 1949 7 Dictat ed By: Adrianna Lauren Attend ing Physic olamide: TAMANNA CROWLEY Physic olamide: BATSHEVA MORALES Exam Date: 2023 09:18 AM Exam Name: MG SCRN BREAST MILA BILAT Admitt ing Diagno sis(es ): Page 2 [email or web address] [facility] (Imaging) [address] [place] [address], [address], 04/25/2024 13:14:04 Result Notes Documentation Provider Name and Address Organization Details Recorded Time Xr, Chest, 2 View : [facility] [address] [place] [address] Patient Name: GENA FLORES Sex: F : 1950 Location: [facility] Attending Physician: JARRET MORALES Ordering Physician: JARRET MORALES Exam Date: 10/28/2022 8:19 AM Exam Name: XR CHEST 2V Admitting Diagnosis(es): RADIOLOGY REPORT - FINAL EXAM: XR CHEST 2V HISTORY: COUGH COMPARISON: 09/02/2022 TECHNIQUE: Two views of the chest were performed. FINDINGS: No pneumothorax, consolidative infiltrates, pleural effusions, or pulmonary edema. The heart is not enlarged. IMPRESSION: Unremarkable 2 view chest. Page 1 of 2 [facility] Patient Name: FLORES, GENA Carmona Sex: F : 1950 Exam Date: 10/28/2022 8:19 AM Exam Name: XR CHEST 2V Admitting Diagnosis(es): Created and electronically signed by: William Singh MD Signed Date: 10/28/2022 12:01 PM (CT) Dictated by: William Singh MD (CT) (CT) Page 2 of 2 Loly Deleon RN [facility], [facility] [employer] [facility] 11/04/2022 11:45:58 Ct, Lumbar Spine, W/o Contrast : [facility] [address] [place] [address] Patient Name: GENA FLORES Sex: F : 1950 Dictated By: Damon Serrano Attending Physician: JARRET MORALES Ordering Physician: JARRET MORALES Exam Date: 07/06/2023 12:38 PM Exam Name: CT L SPINE WO Admitting Diagnosis(es): CT lumbar spine without contrast Date: 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 Axial and coronal reformatting was done. Bone and soft tissue windows were reviewed. Radiation dose: CTDIvol 34 mGy, DLP 1234 mGy*cm. Findings: No CT evidence of definite acute fracture, spinal dislocation, or significant appearing acute subluxation is seen. The visualized paraspinal soft tissues are grossly unremarkable. At the T12-L1 level, there is no evidence of central spinal canal or neuroforaminal stenosis. At the L1-L2 level, there is no evidence of central spinal canal or neuroforaminal stenosis. At the L2-L3 level, there is no evidence of central spinal canal or neuroforaminal stenosis. At the L3-L4 level, there is no evidence of central spinal canal or neuroforaminal stenosis. At the L4-L5 level, there is no evidence of central spinal canal or Page [address] [place] [id number] Patient Name: GENA FLORES Sex: F : 1950 Dictated By: Damon Serrano Attending Physician: TAMANNA WHEAT Ordering Physician: JARRET MORALES Exam Date: 07/06/2023 12:38 PM Exam Name: CT L SPINE WO Admitting Diagnosis(es): neuroforaminal stenosis. At the L5-S1 level, there is no evidence of central spinal canal or neuroforaminal stenosis. Stable hematoma in the posterior pelvic/lower abdominal body wall measuring 9 cm. Impression: No definite CT evidence of acute fracture or dislocation of the bony lumbar spine. Stable hematoma in the posterior pelvic/lower abdominal body wall measuring [address] scans at this medical facility are performed using dose modulation techniques as appropriate to a performed exam including the following: Automated exposure control was utilized; adjustment of the MA and/or KV according to patient size; and use of iterative reconstruction technique. Page 2 Loly Deleon RN [facility], [facility] [employer] [facility] 07/06/2023 17:15:45 Dexa, Axial Skeleton : [address] [address] Patient Name: FLORESGENA Sex: F : 1950 Dictated By: Pérez Yanes Attending Physician: JARRET MORALES Ordering Physician: JARRET MORALES Exam Date: 04/07/2024 09:39 AM Exam Name: XR DEXA-HIPS PELVIS SPINE Admitting Diagnosis(es): INDICATION: 73 years old, Female; asymptomatic menopausal. Postmenopausal osteoporosis. DEXA SCAN: BONE DENSITY REPORT: AP SPINE (L1-L4) : T Score: -1.3 LEFT HIP TOTAL : T Score: -2.2 RT HIP TOTAL : T Score: -2.1 TOTAL BILAT HIP AVG: T Score: -2.2 IMPRESSION: Osteopenia lumbar spine and bilateral hips --- *FRAX version 3.08. Fracture probability calculated for an untreated patient. Fracture probability may be lower if the patient has received treatment. T-score: comparison by standard deviation (SD) to a young adult population, matched for sex and ethnicity (used for postmenopausal women and men >50 years) and classified by WHO criteria. -1.0: normal <-1.0 to >-2.5: osteopenia Page [address] [address] Patient Name: FLORESGENA Sex: F : 1950 Dictated By: Pérez Yanes Attending Physician: TAMANNA WHEAT Ordering Physician: JARRET MORALES Exam Date: 04/07/2024 09:39 AM Exam Name: XR DEXA-HIPS PELVIS SPINE Admitting Diagnosis(es): -2.5: osteoporosis -2.5 plus fragility fracture: severe osteoporosis Z-score: compared by SD to an age, sex, and ethnicity population (used for premenopausal women, men <50 years, and children instead of T-score WHO criteria 4) <-2.0: below expected range/low bone density for age, and a cause should be sought Page 2 ADONIS Cameron [employer] 04/25/2024 13:14:03 Problems Name Problem SNOMED Code Status Onset Date Resolution Date Notes Provider Name and Address Organization Details Recorded Time Herpes zoster with nervous system complica tion 866438079 Active Not Available [facility] 3 07:22:45 Disorder of shoulder 361476011 Completed Not Available [facility] 3 01:34:01 Mammogra phy abnormal 373917203 Active 2021 Not Available [facility] 3 07:22:45 Anxiety state 703798504 Active Not Available [facility] 3 07:22:45 Gastroes ophageal reflux disease 528461236 Active 2021 Not Available [facility] 3 07:22:45 Screenin g mammogra phy Active 2021 Not Available [facility] 3 07:22:46 Fracture of face bones Completed Not Available [facility] 3 01:34:02 Rib pain 949713718 Completed Not Available [facility] 3 01:34:02 Chest pain 72813122 Active 2021 Not Available [facility] 3 07:22:46 Knee pain Completed Not Available [facility] 3 01:34:02 Osteopen ia 553778733 Active 2021May 2021 BMD -1.9 Not Available [facility] 3 07:22:46 Type 2 diabetes mellitus without complica tion 506881891 Active Not Available [facility] 3 07:22:46 Dyslipid emia 683057443 Active 2018 Not Available [facility] 3 07:22:46 Acute urinary tract infectio n 437984942 Active 2022 Not Available [facility] 3 07:22:46 Type 2 diabetes mellitus 64903597 Active 2021 Not Available [facility] 3 07:22:46 Pain of shoulder region 14576570 Completed 201808/12/2019 Not Available [facility] 3 01:34:03 Herpes zoster 2703699 Completed Not Available [facility] 3 01:34:03 Cough 20391179 Active 2022 Not Available [facility] 3 07:22:46 Upper respirat ory infectio n 56919299 Active 2021 Not Available [facility] 3 07:22:46 Acute upper respirat ory infectio n 21335825 Active 2022 Not Available [facility] 3 07:22:46 [facility] hyperten danya 16812913 Active 2018 Not Available [facility] 3 07:22:46 Diabetes mellitus 85728120 Active Not Available [facility] 3 07:22:46 COVID-19 863470844 Active 2021 Not Available [facility] 3 07:22:46 Urinary incontin ence 894279979 Active 2022 Not Available [facility] 3 07:22:45 Gastroes ophageal reflux disease without esophagi tis 294417578 Active 2022 Not Available [facility] 3 07:22:46 Uncontro lled type 2 diabetes mellitus 502891619 Active 2022 Not Available [facility] 3 07:22:46 Superfic ial thrombop hlebitis 3346332 Active 2022 Not Available [facility] 3 07:22:46 Nausea and vomiting 60775544 Active 2022 Not Available [facility] 3 07:22:45 Pain in right foot 44843743194 9107 Active 2024 Marky Narayanan DPM [address] [facility] [address], [place], [address] , [employer] [facility] [employer] 5 11:08:46 Bunion 015634771 Active 2024 Marky Narayanan DPM [address], [facility] [address], [place], [address] , [employer] [facility] [employer] 5 11:08:52 Notes:Some problems listed i n Documents: #[id number], #[id number], #[id number], #[id number], #[id number], #[id number], #[id number], #[id number], #[id number], #[id number] could not be added to this patient's chart. Please review these documents and add these problems to the patient's chart manually as needed. Problem Notes None recorded. Procedures Surgical History Date Name Laterality Status Provider Name and Address Organization Details Recorded Time 05/28/20 Date of Last Colonoscopy completed Not Available [facility] 10/08/2022 01:20:40 05/28/20 21 Colonoscopy completed Not Available [facility] 10/09/19 23 01:20:49 05/24/20 21 Most Recent Bone Density completed Not Available [facility] 10/08/2022 01:20:41 07/13/20 19 Eye Surgery completed Not Available [facility] 10/09/19 23 01:20:49 ligation of fallopian tube completed Not Available [facility] 10/08/2022 01:20:49 Orthopedic Surgery completed Not Available [facility] 10/08/2022 01:20:49 hernia repair completed [facility] [employer] [facility] [employer] 02/09/2025 10:22:38 Imaging Results None recorded. Procedure Notes None recorded. Medical Equipment None Reported. Allergies Allergen ID Allergen Name Allergen Category Reaction Reaction Severity Criticality Documentation Date Start Date Code Code System Note Provider Name and Address Organization Details Recorded Time 2927 salmon oil food,medi cation anaphylax is moderate Not available 10/08/2022 18608 RxNorm Not Available [facility] 3 01:51:00 2928 latex environme nt,medica tion rash moderate Not available 10/08/2022 41523 91 RxNorm Not Available [facility] 3 01:51:00 Medications Name Sig Start Date Stop Date Status Note LastModified by Organization Details LastModified Time losartan 50 mg tablet 07/23 completed Not Available Not Available Not Available amoxicill in 500 mg capsule TAKE 1 CAPSULE BY MOUTH 4 TIMES DAILY UNTIL ALL TAKEN 02/09 completed Not Available Not Available Not Available buspirone 5 mg tablet 01/04 completed [...] a 250 mg tablet TAKE 2 TABLETS BY MOUTH ON DAY 1, AND THEN TAKE 1 TABLET BY MOUTH ONCE A DAY ON DAY 2 THROUGH DAY 5 02/09 completed Not Available Not Available Not Available [...] 6 HOURS NEEDED FOR PAIN - MODERATE 02/09 completed Not Available Not Available Not Available sucralfat e 1 gram tablet TAKE 1 TABLET BY MOUTH 4 TIMES DAILY BEFORE MEAL(S) AND AT BEDTIME 04/14 completed Not Available Not Available Not Available ondansetr on HCl 4 mg tablet TAKE 2 TABLETS BY MOUTH THREE TIMES DAILY NEEDED 02/09 completed Not Available Not Available Not Available glipizide 10 mg tablet TAKE ONE [...] Available Not Available Not Available sertralin e 100 mg tablet TAKE 1 TABLET BY MOUTH ONCE DAILY active Not Available Not Available No t Available prednison e 5 mg tablet 01/28 completed Not Available Not Available Not Available venlafaxi ne ER 150 mg capsule,e xtended release 24 hr Take 1 capsule every day by oral route for 90 days. 11/12 completed Not Available Not Available Not Available penicilli n V potassium 500 mg tablet TAKE 1 TABLET BY MOUTH 4 TIMES DAILY 02/09 completed Not Available Not Available Not Available amlodipin e 2.5 mg tablet TAKE 1 TABLET BY MOUTH AT BEDTIME 02/09 completed Not Available Not Available Not Available metronida zole 500 mg tablet 07/23 [...] AND ONE-HALF AT 5 AM ON 01/16 completed Not Available Not Available Not Available omeprazol e 40 mg capsule,d elayed release Take 1 capsule every day by oral route. 11/21 completed Not Available Not Available Not Available tramadol 50 mg tablet TAKE 1 TABLET BY MOUTH EVERY 8 HOURS NEEDED FOR PAIN active Not Available Not Available No t Available bupropion HCl SR 100 mg tablet,12 hr sustained -release 07/23 completed Not Available Not Available Not Available glimepiri de 1 mg tablet TAKE 1 TABLET BY MOUTH ONCE DAILY IN THE MORNING active Not Available Not Available No t Available oxycodone -acetamin ophen 5 mg-325 mg tablet TAKE 1/2 TO 1 (ONE-ANASTASIIA F TO ONE) TABLET BY MOUTH EVERY 6 HOURS NEEDED FOR PAIN 02/09 completed Not Available Not Available Not Available propranol ol 10 mg tablet 07/23 completed Not Available Not Available Not Available amoxicill in 875 mg tablet TAKE 1 TABLET BY MOUTH TWICE DAILY 02/09 completed Not Available Not Available Not Available famotidin e 20 mg tablet Take 1 tablet every day by oral route. 06/[address] Morales switched meds to sucralfa te Not Available Not Available Not Available OneTouch Ultra Test strips USE 1 STRIP TO CHECK GLUCOSE TWICE DAILY active Not Available Not Available No t Available baclofen 10 mg tablet TAKE 1 TABLET BY MOUTH EVERY 8 HOURS NEEDED FOR MUSCLE SPASM 02/09 completed Not Available Not Available Not Available gemfibroz il 600 mg tablet TAKE 1 TABLET BY MOUTH ONCE DAILY IN THE MORNING AND 1 TAB IN THE EVENING 02/09 completed Not Available Not Available Not Available pantopraz ole 40 mg tablet,de layed release TAKE 1 TABLET BY MOUTH TWICE DAILY 02/09 completed Not Available Not Available Not Available metformin 1,000 mg tablet TAKE 1 TABLET BY MOUTH TWICE DAILY 02/09 completed Not Available Not Available Not Available buspirone 10 mg tablet 10/18 completed Not Available Not Available Not Available losartan 25 mg tablet TAKE 1 TABLET BY MOUTH ONCE DAILY 02/09 completed Not Available Not Available Not Available omeprazol e 20 mg capsule,d elayed release TAKE 1 CAPSULE BY MOUTH EVERY DAY AT BEDTIME active Not Available Not Available No t Available etodolac 400 mg tablet Take 1 tablet twice a day by oral route for 30 days. 02/10 completed Not Available Not Available Not Available bisacodyl 5 mg tablet,de layed release TAKE 6 TABLETS BY MOUTH AT 8 AM ON 01/15 completed Not Available Not Available Not Available gabapenti n 100 mg capsule TAKE 1 CAPSULE BY MOUTH TWICE DAILY active Not Available Not Available No t Available levofloxa luis a 500 mg tablet [...] Not Available sertralin e 50 mg tablet TAKE 1 TABLET BY MOUTH ONCE DAILY 02/09 completed Not Available Not Available Not Available doxycycli ne hyclate 100 mg tablet TAKE 1 TABLET BY MOUTH TWICE DAILY FOR 7 DAYS 02/09 completed Not Available Not Available Not Available amoxicill in 875 mg-potass ium clavulana [...] Not Available rosuvasta tin 40 mg tablet TAKE 1 TABLET BY MOUTH ONCE DAILY 02/09 completed Not Available Not Available Not Available metformin ER 1,000 mg tablet,ex tended release 24hr (osmotic) Take 1 tablet twice a day by oral route. 10/22 completed Not Available Not Available Not Available nitrofura ntoin monohydra te/macroc rystals 100 mg capsule Take 1 capsule every 12 hours by oral route for 5 days. 10/22 completed Not Available Not Available Not Available pregabali n 75 mg capsule TAKE 1 CAPSULE BY MOUTH TWICE DAILY active Not Available Not Available No t Available Calcium 600 + D(3) 11/26 completed Not Available Not Available Not Available ICaps AREDS TK 1C PO QD 02/09 completed Not Available Not Available Not Available Farxiga 10 mg tablet TAKE 1 TABLET BY MOUTH ONCE DAILY IN THE MORNING active Not Available Not Available No t Available Farxiga 5 mg tablet Take 1 tablet [...] completed Not Available Not Available Not Available Nicoleaglbriana Root U-100 Insulin 100 unit/mL (3 mL) subcutane ous INJECT 40 UNITS SUBCUTAN EOUSLY ONCE DAILY IN THE EVENING active Not Available Not [...] STRIP TO CHECK GLUCOSE 4 TIMES DAILY 02/09 completed Not Available Not Available Not Available omeprazol e 20 mg delayed release,d isintegra ting tablet Take 1 tablet every day by oral route. 11/26 completed Not Available Not Available Not Available OneTouch Ultra2 Meter USE DIRECTED 02/09 completed Not Available Not Available Not Available OneTouch Delica Plus Lancet 33 gauge USE DIRECTED 02/09 completed Not Available Not Available Not Available Fluzone High-Dose Quad (PF) 240 mcg/0.7 mL IM syringe PHARMACY ADMINIST CANDACE 06/13 completed Not Available Not Available Not Available Ozempic 1 mg/dose (4 mg/3 mL) subcutane ous pen injector INJECT 1MG SUB-Q ONCE WEEKLY active Not Available Not Available No [...] AND THE INCREASE TO 1 MG WEEKLY 02/09 completed Not Available Not Available Not Available Vitals Date Recorded Body height Body mass index (BMI) Body weight Body temperature Heart rate Systolic And Diastolic Provider Name and Address Organization Details Last Updated DateTime 3 157.48 cm 30.7 kg/m2 37464.5 2 g 97.4 [degF] 80 /min 146/70 mm[Hg] Catina Willson [facility] [employer] [facility] 3 09:54:34 Date Recorded Body height Body mass index (BMI) Body weight Body temperature Heart rate Systolic And Diastolic Provider Name and Address Organization Details Last Updated DateTime 3 157.48 cm 28.6 kg/m2 95693.5 7 g 97.7 [degF] 90 /min 136/70 mm[Hg] Catina Willson [facility] [employer] [facility] 3 10:04:26 Date Recorded Body height Body mass index (BMI) Body weight Heart rate Oxygen saturation Oxygen saturation in Arterial blood by Pulse oximetry Body temperature Systolic And Diastolic Provider Name and Address Organization Details Last Updated DateTime 5 157.48 cm 30.9 kg/m2 70435.1 1 g 68 /min 99 % 99 % 97.3 [degF] 136/79 mm[Hg] Sagar Schmidt [facility] [employer] [facility] 5 10:19:35 Date Recorded Body height Body mass index (BMI) Body weight Body temperature Heart rate Systolic And Diastolic Provider Name and Address Organization Details Last Updated DateTime 3 157.48 cm 28.9 kg/m2 04074.5 9 g 98.2 [degF] 74 /min 134/70 mm[Hg] Loly mcfarland RN [facility] [employer] [facility] 3 10:07:33 Date Recorded Body height Body mass index (BMI) Body weight Body temperature Heart rate Systolic And Diastolic Provider Name and Address Organization Details Last Updated DateTime 3 157.48 cm 30.9 kg/m2 11476.1 1 g 98.3 [degF] 65 /min 128/62 mm[Hg] IDANIA Flores [facility] [employer] [facility] 3 11:43:44 Social History Question Answer Notes LastModified by Organization Details LastModified Time Tobacco Smoking Status Former Smoker quit in 1988 Not Available [facility] 10/08/2022 01:07:47 Do You Have An Advance Directive? Yes Living Will MIGRATION.030 [id number] Information not available 10/08/2022 Are You Blind Or Do You Have Difficulty Seeing? No MIGRATION.030 696560 Information not available 10/08/2022 What Is Your Level Of Caffeine Consumption? Moderate MIGRATION.030 166840 Information not available 10/08/2022 How Much Tobacco Do You Chew? None MIGRATION.030 177280 Information not available 10/08/2022 In The 14 Days Before Symptom Onset, Have You Had Close Contact With A Laboratory-confi rmed COVID-19 While That Case Was Ill? No MIGRATION.030 473911 Information not available 10/08/2022 In The 14 Days Before Symptom Onset, Have You Had Close Contact With A Person Who Is Under Investigation For COVID-19 While That Person Was Ill? No MIGRATION.030 605555 Information not available 10/08/2022 Are You Deaf Or Do You Have Serious Difficulty Hearing? No MIGRATION.030 192626 Information not available 10/08/2022 What Type Of Diet Are You Following? REGULAR MIGRATION.0301 048934 Information not available 10/08/2022 Which Illicit Or Recreational Drugs Have You Used? None MIGRATION.030 838049 Information not available 10/08/2022 What Is The Highest Grade Or Level Of School You Have Completed Or The Highest Degree You Have Received? [id number] MIGRATION.0301 309036 Information not available 10/08/2022 Have There Been Any Changes To Your Family Or Social Situation? No MIGRATION.0301 339731 Information not available 10/08/2022 What Is The Fluoride Status Of Your Home? Unknown MIGRATION.0301 309017 Information not available 10/08/2022 When Did You Quit Smoking? 18+yearssincelastc igarette MIGRATION.0301 296777 Information not available 10/08/2022 Are There Any Guns Present In Your Home? No MIGRATION.0301 297809 Information not available 10/08/2022 Do You Use Insect Repellent Routinely? No MIGRATION.0301 083094 Information not available 10/08/2022 Where Do You Live? [facility] MIGRATION.0301 668828 Information not available 10/08/2022 Do You Have A Medical Power Of Label Printer? No MIGRATION.0301 631444 Information not available 10/08/2022 What Was The Date Of Your Most Recent Tobacco Screening? 02/09/2025 Information not available 02/09/2025 Have You Ever Been Counseled For Unhealthy Alcohol Use? No MIGRATION.0301 393993 Information not available 10/08/2022 Do You Have Any Pets? No MIGRATION.0301 924233 Information not available 10/08/2022 What Is Your Relationship Status? MIGRATION.0301 910336 Information not available 10/08/2022 Do You Use Your Seat Belt Or Car Seat Routinely? Yes MIGRATION.0301 158700 Information not available 10/08/2022 Do You Have Smoke And Carbon Monoxide Detectors In Your Home? Yes MIGRATION.0301 092630 Information not available 10/08/2022 Are You Passively Exposed To Smoke? No MIGRATION.0301 819214 Information not available 10/08/2022 Are There Any Smokers In Your House? No MIGRATION.0301 032116 Information not available 10/08/2022 How Much Tobacco Do You Smoke? No MIGRATION.0301 619258 Information not available 10/08/2022 What Types Of Sporting Activities Do You Participate In? None MIGRATION.0301 964880 Information not available 10/08/2022 Do You Use Sunscreen Routinely? No MIGRATION.0301 047330 Information not available 10/08/2022 Has Tobacco Cessation Counseling Been Provided? No MIGRATION.0301 623352 Information not available 10/08/2022 How Many Years Have You Smoked Tobacco? 30 MIGRATION.0301 788418 Information not available 10/08/2022 Have You Recently Traveled Abroad? No MIGRATION.0301 287433 Information not available 10/08/2022 Do You Have Difficulty Walking Or Climbing Stairs? No MIGRATION.0301 176233 Information not available 10/08/2022 Do You Have Any Dietary Restrictions? No MIGRATION.0301 290388 Information not available 10/08/2022 Sex: Female Functional Status Question Answer Note LastModified by [employer] Details LastModified Time Do you use any illicit or recreational drugs? No MIGRATION.880719 3317 Information not available 10/08/2022 Do you or have you ever used any other forms of tobacco or nicotine? No MIGRATION.171323 1310 Information not available 10/08/2022 What is your level of alcohol consumption? Occasional MIGRATION.117130 9410 Information not available 10/08/2022 Do you or have you ever used smokeless tobacco? Never used smokeless tobacco MIGRATION.537177 2158 Information not available 10/08/2022 Do you have transportation difficulties? No MIGRATION.420948 8198 Information not available 10/08/2022 Are you able to walk? YESWOREST MIGRATION.467361 6446 Information not available 10/08/2022 Do you have difficulty doing errands alone? No MIGRATION.482630 2122 Information not available 10/08/2022 Are you able to care for yourself? Yes MIGRATION.547293 0993 Information not available 10/08/2022 What is your occupation? retired MIGRATION.594229 3123 Information not available 10/08/2022 Do you have difficulty dressing or bathing? No MIGRATION.262975 3291 Information not available 10/08/2022 Do you or have you ever used e-cigarettes or vape? Never used electronic cigarettes MIGRATION.968596 1664 Information not available 10/08/2022 What is your exercise level? Moderate MIGRATION.924683 8819 Information not available 10/08/2022 Mental Status Question Answer Note LastModified by [employer] ion Details LastModified Time Do you feel stressed (tense, restless, nervous, or anxious, or unable to sleep at night)? [id number] MIGRATION.32745546 26 Information not available 10/08/2022 Do you have difficulty concentrating, remembering or making decisions? No MIGRATION.56891016 26 Information not available 10/08/2022 Family History Relationship Description Onset Age of this Age Resolved Age Notes LastModified by Organization Details LastModified Time Mother Heart disease MIGRATION.611 [id number] Not available 10/08/2022 01:20:50 Mother Hypertensive disorder MIGRATION.950 [id number] Not available 10/08/2022 01:20:50 Father Diabetes mellitus 82 MIGRATION.772 8416947 Not available 10/08/2022 01:20:51 Sister Diabetes mellitus MIGRATION.878 5762699 Not available 10/08/2022 01:20:51 Sister Heart disease MIGRATION.585 [id number] Not available 10/08/2022 01:20:51 Daughter Diabetes mellitus MIGRATION.116 1934421 Not available 10/08/2022 01:20:51 Daughter Disease of liver MIGRATION.289 1071262 Not available 10/08/2022 01:20:51 Son Acute myeloid leukemia, disease 30 MIGRATION.339 8668319 Not available 10/08/2022 01:20:51 Mother Cerebrovascu lar accident [email or web address] Not available 10/2024 10:18:03 Mother Arthritis Not available 02/09/2025 10:19:23 Sister Cerebrovascu lar accident [email or web address] Not available 10/2024 10:18:03 Sister Hypertensive disorder [email or web address] Not available 2024 10:19:34 Maternal Grandmother Arthritis [email or web address] Not available 10/2024 10:19:23 Maternal Grandmother Osteoporosis [email or web address] Not available 0 02/09/2025 10:21:44 Medical History Condition Response NERVE DISEASE N BLINDNESS N RHEUMATIC FEVER N KIDNEY STONES N BLADDER PROBLEMS N OTHER # 1 Y POLIO N LUNG DISEASE/DISORDER N RADIATION / CHEMOTHERAPY N COPD N Other # 2 Y BLOOD DISEASES N SURGERY N EAR OR HEARING PROBLEMS N MUMPS N DEPRESSION (INCLUDING POST ) Y BOWEL PROBLEMS N STROKE/TIA N ULCERS N [...] N CHRONIC PAIN SYNDROME N HYPOTHYROIDISM N CONSTIPATION N CAROTID BLOCKAGE N BACK / NECK PROBLEMS N HAVE YOU BEEN HOSPITALIZED OR SEEN IN [facility] IN THE PAST YEAR ? N ATHEROSCLEROSIS N BREAST PROBLEMS N DIALYSIS N ECZEMA N OSTEOPOROSIS Y ARTHRITIS Y NO SIGNIFICANT PAST MEDICAL HISTORY N APPENDICITIS N DIABETES, TYPE Y BAD TEETH N ENT N HEARTBURN / REFLUX N AUTISM SPECTRUM DISORDER (ASD) N HEPATITIS / LIVER DISEASE N PULMONARY DISEASE N GOUT N SLEEP DISORDER N ALZHEIMER'S DISEASE N Brain Problems N HERPES N DEMENTIA N SEIZURES/EPILEPSY N HEADACHES/MIGRAINES N VASCULAR DISEASE N PACEMAKER N Blood Disorder N DIZZINESS N KIDNEY DISEASE Y HEART DISEASE/HEART PROBLEMS N MULTIPLE SCLEROSIS N CARDIAC ARRHYTHMIA N CANCER: SPECIFY N ANESTHESIA COMPLICATIONS N Gall Stones N ATRIAL FIBRILLATION N PULMONARY EMBOLISM N AUTOIMMUNE DISEASE N [...] 50 mcg/0.25mL dose 11/03/2020 completed Not Available [facility] 3 07:22:47 COVID-19, mRNA, LNP-S, bivalent, PF, 50 mcg/0.5 mL or 25mcg/0.25 mL dose 07/12/2022 completed Not Available [facility] 3 07:22:47 Influenza, high-dose, quadrivalent, PF 06/05/2021 completed Not Available [facility] 3 07:22:47 COVID-19, mRNA, LNP-S, PF, 100 mcg/0.5mL dose or 50 mcg/0.25mL dose 10/06/2020 completed Not Available [facility] 3 07:22:47 Influenza, high-dose, trivalent, PF 04/24/2020 completed Not Available [facility] 2022 07:22:47 MMR 10/31/2013 completed Not Available [facility] 2023 07:22:47 Past Encounters Encounter ID Performer Location Encounter Start Date Encounter Closed Date Diagnosis/Indication Diagnosis SNOMED-CT Code Diagnosis ICD10 Code Diagnosis Note [id number] Jarret Morales MD [facility] Internal Med [facility] [address] [address] 10/17/2020 00:00:00 10/17/2020 10:46:27 [id number] Jarret Morales MD [facility] Internal Med [facility] [address] [facility] [address] [address] 05/22/2021 00:00:00 06/10/2021 15:09:44 [id number] [facility] ic_[place] _ATHENA_M IGRATION_ DEFAULT_1 _1 , 06/14/2021 00:00:00 06/17/2021 14:00:08 [id number] Jarret Morales MD [facility] Internal Med [facility] [address] [address] 07/03/2021 00:00:00 07/04/2021 13:58:27 [id number] Jarret Morales MD [facility] Internal Med [facility] [address] [address] 10/16/2021 00:00:00 11/09/2021 12:00:07 [id number] Jarret Morales MD [facility] Internal Med [facility] [address] [address] 04/23/2022 00:00:00 04/23/2022 10:32:13 [id number] Nathaly carmona MD [facility] Internal Med [facility] [address] [place] [address] [address] 05/27/2022 00:00:00 05/27/2022 12:57:26 [id number] Jarret Morales MD [facility] Internal Med [facility] [address] [address] 07/15/2022 00:00:00 07/16/2022 09:12:23 [id number] Jarret Morales MD [facility] Internal [facility] [address] [facility] [place] [address] 08/19/2022 00:00:00 08/24/2022 15:28:47 [id number] Jarret Morales MD [facility] Internal Med [facility] [address] [address] 10/22/2022 09:36:48 10/22/2022 10:48:16 Cough 15478239 R05.9 Gastroesop hageal reflux disease 448277321 K21.9 Type 2 liliam betes mellitus 93098166 E11.9 Essential hypertension 51781369 I10 [id number] Jarret Morales MD [facility] Internal Med [facility] [address] [address] 12/09/2022 09:55:17 12/09/2022 10:33:49 Dyslipidemia 352820028 E78.5 Essential hypertension 84756475 I10 Anxiety state 905804682 F41.1 Diabetes mellitus 679415 09 E11.9 Gastroesop hageal reflux disease 510734674 K21.9 [id number] Jarret Morales MD [facility] Internal Med [facility] [address] [address] 04/14/2023 09:57:13 04/14/2023 10:15:41 Urinary incontinence 210635841 R32 Gastroesop hageal reflux disease 088302747 K21.9 Essential hypertension 52090122 I10 Osteopenia 006751127 M85 .80 [id number] Jarret Morales MD [facility] Internal Med [facility] [address] [address] 07/06/2023 10:56:14 07/06/2023 12:26:25 Uncontrolled type 2 diabetes mellitus 050788085 E11.65 Fall W19.XXXA Superficia l thrombophlebitis 6864520 I80.9 Nausea and vomiting 1691999 R11.2 [id number] Marky Narayanan DPM [facility] [place] [address] [facility] [address] [place] [address] 02/09/2025 10:09:12 02/13/2025 15:04:11 Pain in right foot [id number] M79.671 secondary to below Bunion [id number] M21.61 1 Reviewed treatment optionsCon tinue conservati ve therapy at this timeConser vative therapy options reviewed in detailFoll ow-up in 4 weeks Health Concerns Section Related Observation LastModified by Organization Detai ls LastModified Time None Recorded Concern Status LastModified by Organization Details LastModified Time None Recorded Advance Directives Directive Y: living will Payers Insurance Date Sequence Insurance Name Policy Number Policy Jose Covered Member ID Jose Member ID Guarantor Name 02/13/2025 1 [facility] (MEDICARE REPLACEMENT/A DVANTAGE - HMO) [id number] Gena Flores [id number] Gena Flores Notes Date Note Type Note Provider Name and Address Organization Details Recorded Time 10/22/2022 text/html Dry cough at timesStill with GERD symptomsDiabetes sugar still a little bitHypertension no headache no dizzinessChronic kidney disease no nausea no vomiting no edema Jarret Morales MD [address] [facility] [address], [place], [address], [place] 11/02/2022 13:10:23 12/09/2022 text/html Hypertension no headache or dizziness. Dyslipidemia try to follow a low-fat diet. Diabetes no polyphagia or hypoglycemia. GERD no nausea no vomiting. Ongoing problems with urinary incontinence. Heartburn is been hard to control Jarret Morales MD [address] [facility], [facility] [address], [place], [address], [place] 01/18/2023 15:22:11 04/14/2023 text/html Hypertension no headache or dizziness. Dyslipidemia try to follow a low-fat diet. Diabetes no polyphagia or hypoglycemia. GERD no nausea no vomiting. Ongoing problems with urinary incontinence. Heartburn is been hard to control Jarret Morales MD [address] [facility] [address], [place], [address], At[place]va 04/14/2023 10:23:59 07/06/2023 text/html Recent fall mech [...] aroundDiabetes uncontrolled hemoglobin A1c 9.9 in hospital Jarret Morales MD [address] [facility] [address], [place], [address], [place] 07/06/2023 22:56:10 02/09/2025 text/html . Patient is a 74-year-old female diabetic she presents the office with complaints of pain to her right foot she states that she has pain in her bunion she has some very mild corns to the medial 2nd toe and lateral great toe of the right foot. Patient has no open wounds or signs of infection she has a moderate to severe bunion which is significantly painful and tender over the medial eminence. I did discuss conservative options she does currently utilize a silicone toe spacer. I reviewed other options with conservative therapy including shoe gear, orthotics, offloading splints, NSAIDs. Patient will trial these conservative measures we will obtain x-rays and she will follow-up in a couple weeks. Patient denies any other complaints. Marky Narayanan DPM [address], [facility] [address], [place], [address], [place] 02/09/2025 13:55:13 OBGyn Episode No OBEpisode recorded.
--- OUTSIDE RECORDS SUMMARY | 2025-02-19 14:19 | XMS_ITS | Encounter Summary ---
Author Organization [facility] Address [address] [place], [place] [address] [place] [address] Phone Care Team Providers Care Hub Bander Name Role Phone Eliecer Morales MD Primary Care Provider [phone] Reason for Visit * Reason Comments Med Change Request Encounter Details Date Type Department Care Team (Late Contact Info) Description 01/20/2022 Refill [place] [facility] [address] [facility] [address] [place] [address] Jefe Chong MD [facility] [address] [place] [address] Social History Tobacco Use Types [...] Department Care Team (Late Contact Info) Description 04/11/2025 10:15 AM CDT Office Visit [place] [facility] [address] [facility] [address] [place] [address] Jefe Chong MD [address] [place] [address] documented as of this encounter Visit Diagnoses Not on filedocumented in this encounter Care Teams Hub Bander Relationship Specialty Start Date End Date Eliecer Morales MD [address] [place] [id number] PCP - General Internal Medicine 02/19/23 documented as of this encounter
--- OUTSIDE RECORDS SUMMARY | 2025-02-19 14:19 | XMS_ITS | Clinical Summary ---
Author Organization [facility] Address [address] [facility] [place] [address] Care Team Providers Care Conference Planning Manager Name Role Phone Micaela Santos PA-C Primary Care Provider [phone] Source Comments [facility],non-owned Affiliates and Associated Physician Practices is amultiple site organization consisting of ambulatory clinics and hospital sitesin [place], [place], [place] and [place]. This disclosure is being madepursuant to the Care Everywhere program and may not contain all information available regarding this patient. Last updated 18.[facility] Allergies Active Allergy Reactions Criticality Noted Date Comments Qxd-Fnf-Nfvsh-3 Fatty Acids-[place] Anaphylaxis High 12/07/2015 Had [place] and had difficulty breathing (swollen throat). 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
== END 2025-02-19 14:15 | disposition home or self-care (01) ==
PROVIDERS: PCP Internal Medicine; Visit Provider Podiatrist Foot & Ankle Surgery
DX: M20.11 Hallux valgus (acquired), right foot (principal); M21.611 Bunion of right foot
CPT/HCPCS: 73630

== ENCOUNTER 2025-07-12 19:17 | Emergency (ER) | payer MEDICARE, SELFPAY ==
--- NOTE | ~2025-07-12 | XR_ITS ---
XR foot RT min 3V INDICATION: pain/swelling along dorsum . COMPARISON: None. FINDINGS: Frontal, lateral and oblique views of the right foot were obtained. Acute nondisplaced intra-articular fracture at the base of the first metatarsal. IMPRESSION: Acute nondisplaced intra-articular fracture base first metatarsal. Reviewed, dictated and finalized at location S. AND [employer] ASS[employer]ER
--- NOTE | ~2025-07-12 | XR_ITS ---
XR ankle RT min 3V INDICATION: pain/swelling after foot stuck . COMPARISON: None. FINDINGS: Frontal, lateral and oblique views of the right ankle demonstrate a nondisplaced intra-articular fracture at the base of the first metatarsal. The ankle mortise is intact. There is no soft tissue swelling. No radiopaque foreign body is seen. IMPRESSION: Acute nondisplaced intra-articular fracture at the base of the first metatarsal Reviewed, dictated and finalized at location S. [employer]
[2025-07-12 19:24] VITALS: BP 154/55; PULSE 70; RESP 17; TEMP 36.5; O2SAT 98
[2025-07-12 19:43] VITALS: BP 145/54; PULSE 74; RESP 17; O2SAT 98
--- OUTSIDE RECORDS SUMMARY | 2025-07-12 19:48 | XMS_ITS | Clinical Summary ---
Author Organization [facility] Address [address] [facility] [place] [address] Care Team Providers Care Dust Mixer Name Role Phone Micaela Santos PA-C Primary Care Provider [phone] Source Comments [facility],non-owned Affiliates and Associated Physician Practices is amultiple site organization consisting of ambulatory clinics and hospital sitesin [place], [place], [place] and [place]. This disclosure is being madepursuant to the Care Everywhere program and may not contain all information available regarding this patient. Last updated 18.[facility] Allergies Active Allergy Reactions Criticality Noted Date Comments Bgn-Xqe-Nacfg-3 Fatty Acids-[place] Anaphylaxis High 12/07/2015 Had [place] and had difficulty breathing (swollen throat). 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 Gender Identity Not on file Sexual Orientation [...] 50+ (1 of 2 - PCV) 1971 Respiratory Syncytial Virus (RSV) Vaccine Pt: or over 60 yrs (1 - Risk 50-74 years 1-dose series) 2002 ZOSTER VACCINE (1 of 2) 2002 DIABETES-FOOT EXAM WITH MONOFILAMENT 11/25/2017 DIABETES-HGB A1C 11/25/2017 DIABETES RETINOPATHY SCREENING 11/25/2018 11/25/2017, 07/24/2017, 06/26/2017, Additional history exists DEPRESSION SCREENING 08/10/2024 DIABETES - URINE PROTEIN SCREENING 08/10/2024 MEDICARE AWV CALENDAR YEAR 2024 COVID-19 VACCINE (2024- season) 2025 INFLUENZA VACCINE (#1) 2025 HEPATITIS B VACCINE [...] [employer] U[employer] MANAGED MEDICARE ADV Care Teams Dust Mixer Relationship Specialty Start Date End Date Micaela Santos PA-C PCP - General 05/27/17
--- OUTSIDE RECORDS SUMMARY | 2025-07-12 19:48 | XMS_ITS | Clinical Summary ---
Author Organization [facility] Address [address] [place] [address] Care Team Providers Care Ticket Marker Name Role Phone Eliecer Morales MD Primary Care Provider [phone] Allergies Active Allergy Reactions Criticality Noted Date Comments Calcitonin (Comfort) Anaphylaxis High 12/07/2015 Had [place] and had difficulty breathing (swollen throat). Had to use benadryl. Not hospitalized Ethyl Alcohol Rash Medium 07/27/2023 Latex Rash Medium 07/27/2023 Medications doxycycline 100 mg tablet Take 1 tablet/capsule (100 mg total) by mouth 2 (two) times a day 3 Active insulin glargine (BASAGLAR) 100 unit/mL (3 mL) pen for injection Inject 30 Units under the skin 7 Active metFORMIN (GLUCOPHAGE) 1,000 mg tablet TAKE 1 TABLET BY MOUTH TWICE DAILY DIRECTED 3 Active Ozempic 1 mg/dose (4 mg/3 mL) pen injector injection INJECT 1 MG SUBCUTANEOUSLY EACH WEEK 3 Active sertraline (ZOLOFT) 50 mg tablet Take 1 tablet (50 mg total) by mouth daily 3 Active vit C,W-Ho-qzpuj-l utein-zeaxan 250-90-40-1 mg capsule Take by mouth [...] for muscle spasms 30 tablet 4 Active Farxiga 10 mg tablet Take 1 tablet (10 mg total) by mouth daily Active gemfibroziL (LOPID) 600 mg tablet Take 1 tablet (600 mg total) by mouth 2 (two) times a day 4 Active rosuvastatin (CRESTOR) 40 mg tablet Take 1 tablet (40 mg total) by mouth daily 3 Active losartan (COZAAR) 25 mg tablet Take 1 tablet (25 mg total) by mouth daily 4 Active pregabalin (LYRICA) 75 mg capsule Take 1 capsule (75 mg total) by mouth 2 (two) times a day Active omeprazole (PriLOSEC) 20 mg capsule Take 1 capsule (20 mg total) by mouth daily 5 Active Active Problems Problem Noted Date Diagnosed Date 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 02/14/2014 Overview (11/14/2016): Disorder associated w/ type 2 diabetes mellitus Hyperlipidemia 02/14/2014 Overview (11/14/2016): Hyperlipidemia Encounters Date Type Department Care Team Description 05/31/2025 8:15 AM CDT - 05/31/2025 11:59 PM CDT Hospital Encounter [facility] Imaging and Radiology [address] [place] [address] Jesus Claros II, MD Glossopharyngeal neuralgia syndrome Discharge Disposition: Discharge to home or self care 05/31/2025 Results Follow-Up [facility] [address] [address] Jesus Claros II, MD MRI Brain with/without Contrast 05/03/2025 10:30 AM CDT Office Visit [facility] [address] [address] Jesus Claros II, MD Glossopharyngeal neuralgia syndrome (Primary Dx) from Last 3 Months Surgical History Surgery Date Site/Laterality Comments TUBAL LIGATION UPPER GASTROINTESTINAL ENDOSCOPY COLONOSCOPY Medical History Medical History Date Comments Hx Other Medical crushed L femur ; Comments: [facility] 02/14/2014 - Hx Other Medical fractured tibia and fibula; Comments: [facility] 02/14/2014 - Hx Other Medical not claustropho bic; Comments: [facility] 02/14/2014 - GERD (gastroesophageal reflux disease) Hiatal hernia Chronic diarrhea Hyperlipidemia Type 2 diabetes mellitus Hypertension Depression Family History Medical History Relation [...] on file 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 Gender Identity Not on file Sexual Orientation Not on file Last Filed Vital Signs Vital Sign Reading Time Taken Comments Blood Pressure 140/76 05/03/2025 9:46 AM CDT Pulse 67 05/03/2025 9:46 AM CDT Temperature 36.8 C (98.3 F) 06/28/2024 7:30 PM STEAM BOILER FIREMAN Respiratory Rate 16 06/28/2024 7:30 PM STEAM BOILER FIREMAN Oxygen Saturation 98% 05/03/2025 9:46 AM CDT Inhaled Oxygen Concentration - - Weight 67.9 kg (149 lb 9.6 oz) 05/03/2025 9:46 A M CDT Height 154.9 cm (5' 0.98) 05/03/2025 9:46 AM CD T Body Mass Index 28.28 05/03/2025 9:46 AM CDT Plan of Treatment Health Maintenance [...] Visit 65+ 2017 Covid-19 Vaccine (4 - 2024-2 6 season) 2025 07/12/2022, 11/03/2020, 10/06/2020 Influenza Vaccine (#1) 2025 , 06/09/2021, 06/05/2021, Additional history exists Lipid Panel 05/24/2026 05/24/2025, 08/10, 02/14/2014 DTaP/Tdap/Td Vaccine (2 - Td or Tdap) 06/24/2027 06/24/2017 Procedures Procedure Name Priority Date/Time Associated Diagnosis Comments MRI BRAIN W WO CONTRAST Schedule Routine, Read Routine (OP Routine) 05/31/2025 9:41 AM CDT Glossopharyngeal neuralgia syndrome PLASMA LIPID PANEL Routine 02/14/2014 9:57 AM CDT from Last 3 Months or Most Recently Relevant to Health Maintenance Results * MRI Brain with/without Contrast (05/31/2025 9:41 AM CDT) Anatomical Region Laterality Modality Head and Neck N/A Magnetic Resonan ce 05/31/2025 12:0 5 PM CDT Impressions 05/31/2025 12:05 PM CDT No intracranial MRI findings identified to explain the patient's symptoms. Electronically signed by: Varsha Cabrera DO Narrative 05/31/2025 12:05 PM CDT EXAMINATION: Magnetic resonance imaging (MRI) of the brain and brainstem without and with contrast HISTORY: 74 year old with pain with swallowing, shooting pains involving throat, jaw, right side to ear TECHNIQUE: Multiplanar multi-weighted MRI of the brain and brainstem was performed without and withintravenous contrast using the internal auditory canal protocol. This included sequences detailing the internal auditory canals and posterior fossa. Contrast information: 13 mL Dotarem COMPARISON: None available. FINDINGS: The cerebellopontine angles are normal, with no evidence of extra-axial mass or aneurysm. The VII/VIII nerve complexes appear normal. There are no areas of abnormal contrast enhancement. The upper cervical spinal cord appears unremarkable. No skull base masses or intracranial enhancing mass lesions are identified. The scalp and calvarium are normal. The corpus callosum is normal in shape and signal intensity. The posterior fossa is unremarkable. Partially empty sella. The brainstem and craniocervical junction are unremarkable. Mild generalized parenchymal volume loss. Periventricular, pontine, subcortical, and deep white matter T2/FLAIR hyperintensities are nonspecific but may reflect chronic microvascular changes. Diffusion weighted images reveal no hyperintensities to suggest acute cerebral infarction. The susceptibility weighted sequences reveal no evidence of acute or chronic hemorrhage. The ventricles are normal in size and position without evidence of hydrocephalus. The paranasal sinuses are aerated. The visualized portions of the mastoids are unremarkable. Bilateral lens replacements. Normal flow voids are demonstrated in the carotid arteries and basilar artery. Procedure Note Varsha Garibay, DO - 05/31/2025 EXAMINATION: Magnetic resonance imaging (MRI) of the brain and brainstem without and with contrast HISTORY: 74 year old with pain with swallowing, shooting pains involving throat, jaw, right side to ear TECHNIQUE: Multiplanar multi-weighted MRI of the brain and brainstem was performed without and withintravenous contrast using the internal auditory canal protocol. This included sequences detailing the internal auditory canals and posterior fossa. Contrast information: 13 mL Dotarem COMPARISON: None available. FINDINGS: The cerebellopontine angles are normal, with no evidence of extra-axial mass or aneurysm. The VII/VIII nerve complexes appear normal. There are no areas of abnormal contrast enhancement. The upper cervical spinal cord appears unremarkable. No skull base masses or intracranial enhancing mass lesions are identified. The scalp and calvarium are normal. The corpus callosum is normal in shape and signal intensity. The posterior fossa is unremarkable. Partially empty sella. The brainstem and craniocervical junction are unremarkable. Mild generalized parenchymal volume loss. Periventricular, pontine, subcortical, and deep white matter T2/FLAIR hyperintensities are nonspecific but may reflect chronic microvascular changes. Diffusion weighted images reveal no hyperintensities to suggest acute cerebral infarction. The susceptibility weighted sequences reveal no evidence of acute or chronic hemorrhage. The ventricles are normal in size and position without evidence of hydrocephalus. The paranasal sinuses are aerated. The visualized portions of the mastoids are unremarkable. Bilateral lens replacements. Normal flow voids are demonstrated in the carotid arteries and basilar artery. IMPRESSION: No intracranial MRI findings identified to explain the patient's symptoms. Electronically signed by: Varsha Cabrera DO Jesus Claros II, MD IMG MRI PROCEDURES Final Res ult * (ABNORMAL) Plasma lipid panel (02/14/2014 9:57 AM CDT) Cholesterol 258(H) 100 - 200 mg/dl HISTORICAL RESULTS Triglycerides 377(H) 10 - 150 mg/dl HISTORICAL RESULTS HDL 45 40 - 59 mg/dl HISTORICAL RESULTS LDL 138(H) 60 - 129 mg/dl HISTORICAL RESULTS Plasma 02/14/2014 9:57 AM CDT Terri Patino DIGITAL MARKETING OFFICER LAB BLOOD ORDERABLES F inal Result HISTORICAL RESULTS from Last 3 Months or Most Recently Relevant to Health Maintenance Insurance [facility] MEDICARE ADVANTAGE [facility] MEDICARE ADVANTAGE Care Teams Ticket Marker Relationship Specialty Start Date End Date Eliecer Morales MD PCP - General 03/14/14
[2025-07-12] MEDS: HYDROcodone/acetaminophen (*CRX) 5-325 MG TABLET 1 TAB PO (20:32)
--- NOTE | 2025-07-12 20:37 | ED.LOWEXIN ---
HPI - Extremity Injury (Lower) General Chief Complaint: Extremity Injury, Lower Stated Complaint: I think I may have broke my foot Time Seen by Provider: 07/12/25 19:22 Source: patient and family (daughter and grand-daughter) Mode of arrival: ambulatory Limitations: no limitations History of Present Illness HPI Narrative: Patient presents with concerns she broke her foot. She was walking on her porch and her pant leg got stuck amongst a potted plant. Her right foot then got stuck in between the decking. She has a new television technician in [place] though can't remember their name. She reports that she can't take ibuprofen due to kidney function. The pain is just inferior to her 1st /great toe, though not along the bunion. Pain radiates to the right lateral malleolus. She developed brusiing and swelling along the top and side of her foot. This happened several hours but she took 1000mg Tylenol at 13:00 and went to see a movie, [place] [facility]. Pain persisted. No calf pain. Related Data Home Medications ?Medication ?Instructions ?Recorded ?Confirmed ?Last Taken ?Type gemfibrozil 600 mg tablet 600 mg PO BID 04/23/23 01/18/25 02/09/24 History insulin glargine 100 unit/mL (3 40 unit subcut DAILY 04/23/23 01/18/25 02/08/24 History mL) subcutaneous pen (Basaglar KwikPen U-100 Insulin) rosuvastatin 40 mg tablet 40 mg PO DAILY 04/23/23 01/18/25 02/09/24 History sertraline 50 mg tablet 50 mg PO QAM 04/23/23 01/18/25 02/10/24 05:30 History losartan 25 mg tablet 25 mg PO QAM 12/21/23 01/18/25 02/09/24 History metformin 500 mg tablet,extended 500 mg PO BID 02/04/24 01/18/25 02/09/24 History release 24 hr tramadol 50 mg tablet 50 mg PO Q6H PRN 01/09/25 01/18/25 Unknown History dapagliflozin propanediol 10 mg mg PO 01/18/25 01/18/25 Unknown History tablet (Farxiga) pregabalin 75 mg capsule mg PO 01/18/25 01/18/25 Unknown History Allergies Allergy/AdvReac Type Severity Reaction Status Date / Time latex Allergy SWELLING, Verified 07/12/25 19:18 BLISTER salmon oil Allergy Blister Verified 07/12/25 19:18 HAND SILVERWARE BUFFER AdvReac Blister Uncoded 01/09/25 10:34 PMFSH Past Medical History Medical History Allergies Depression Anxiety Diabetes type 2, controlled Hypertension Hyperlipidemia Surgical History Surgical History History of fundoplication History of repair of hiatal hernia Laparoscopic repair hiatal hernia with partial fundoplication 02/10/24 H/O tubal ligation History of surgery on lower extremity Family History Family History Father Diabetes mellitus Mother Heart disease Hypertension Cerebrovascular accident Grandparent Heart disease Cerebrovascular accident Sibling Diabetes mellitus Hypertension Cerebrovascular accident Other Cancer Social History Social History Smoking packs per day: 2 Smoking cigarettes per day: 40.0 Years smoked: 10 Smoking pack-years: 20.00 Smoking status: Former smoker Tobacco type: cigarettes Smoking end date: 02/07/95 Alcohol intake: never Alcohol use details: 2x per month Substance use: never Substance use type: does not use Lack of Transportation: No Lack of Food: Never True Current Housing: I Have Housing Concerned About Future Housing: No Difficulty Paying Gas/Electric Bills: No Difficulty Paying for Meds: No Currently Unemployed: No Education: Trade/Vocational Certificate Difficulty w/ Childcare or Family Care: No Living arrangements: with family Additional living arrangements comments: MOTHER LIVES WITH PATIENT Spiritual care concerns: No Exam Narrative: GENERAL: Well-appearing, well-nourished, and in no acute distress. HEAD: Normocephalic, atraumatic. EYES: Non injected, non icteric ENT: Nares clear, no rhinorrhea or epistaxis. Gross auditory acuity intact. NECK: Supple. No meningismus. CHEST: Speaking in full sentences. No respiratory distress. HEART: Regular rate and rhythm. . ABDOMEN: Soft, nondistended. No rigidity or guarding. Not peritoneal EXTREMITIES: Mild edema at distal right foot, particularlly medially. Ecchymosis over dorsum and medial aspect of lateral right foot. No ecchymosis on plantar aspect. Hallux valgus on right. TTP at the base and throughout the 1st metatarsal. Strong DP pulse on Right. Brisk capillary refill in great toe. Demonstrates dorsiflexion/plantarflexion 5/5 strength. SKIN: Warm, dry, no rash. Skin intact. NEURO: No focal deficits. Alert and oriented. Answering questions. Following commands. Normal speech without aphasia or dysarthria. Sensation intact throughout foot. PSYCH: Normal mood and affect. Course Vital Signs Vital signs: Vital Signs Temperature 97.7 F 07/12/25 19:24 Pulse Rate 70 07/12/25 19:24 Respiratory Rate 17 07/12/25 19:24 Blood Pressure 154/55 H 07/12/25 19:24 Pulse Oximetry 98 07/12/25 19:24 Oxygen Delivery Room Air 07/12/25 19:24 Temperature 97.7 F 07/12/25 19:24 Pulse Rate 74 07/12/25 21:33 Respiratory Rate 19 07/12/25 21:33 Blood Pressure 137/64 07/12/25 21:33 Pulse Oximetry 100 07/12/25 21:33 Oxygen Delivery Room Air 07/12/25 19:24 MDM MDM Narrative Medical decision making narrative: Patient presents with right foot pain after her foot got stuck in between some decking earlier today. In the emergency department she is afebrile vital signs notable for elevated systolic pressure and low diastolic pressure but MAP 88mmHg. Xrays as below. Patient given Milo. Discussed with radiologist Dr Murguia who concurs that this does not appear to be a LisFranc injury (reviewed cuneiform and adjacent structures). Risks benefits, alternatives, and safety measures are discussed with patient regarding narcotic therapy for breakthrough pain. Prescription drug monitoring database is reviewed and shows that patient filled pregabalin in March 2025 but no other interval fills of controlled substances. Also prescribed acetaminophen. Hard soled post op shoe provided. Advised to follow up. She has a new television technician in [place]. Provided a disc as well as referrals to podiatry (if would prefer alternative) and orthopedic surgery. Differential Diagnosis Differential Diagnosis: fracture; dislocation; considered LisFranc; sprain/strain; metatarsalgia Imaging Data Attestation: I personally reviewed and interpreted this imaging study as follows: My impression: I did independently review the images and appreciate some a widening between the midshaft of metatarsals 1 2 however not at the base to suggest Lisfranc injury Radiologist's impression: ITS Impressions Ankle X-Ray 07/12/25 20:23 IMPRESSION: Acute nondisplaced intra-articular fracture at the base of the first metatarsal Foot X-Ray 07/12/25 20:24 IMPRESSION: Acute nondisplaced intra-articular fracture base first metatarsal. Discharge Plan Discharge Clinical Impression: Closed nondisplaced fracture of first right metatarsal bone Patient Disposition: Home Condition: Stable Instructions: Antibiotic Form, Foot Fracture in Adults (ED), Narcotic Safety (ED), Post Surgical Shoe (ED) Additional Instructions: Acetaminophen/Tylenol (maximum 4000 mg per day) is safe to take for pain relief. For breakthrough pain, you can use the opiate prescribed. Follow-up either with your television technician (a disc of your images has been provided), or the television technician/orthopedic surgeon listed below. Call the office to schedule this appointment for guidance on when they want to see you. Return to the emergency department with any new or worsening symptoms. Patient Language: Kinyarwanda Prescriptions: New acetaminophen 500 mg capsule 1,000 mg PO Q6H PRN (Reason: pain) Qty: 30 0RF oxycodone 5 mg tablet 5 mg PO Q8H PRN (Reason: pain) Qty: 10 0RF No Action tramadol 50 mg tablet 50 mg PO Q6H PRN dapagliflozin propanediol [Farxiga] 10 mg tablet PO pregabalin 75 mg capsule PO losartan 25 mg tablet 25 mg PO QAM metformin 500 mg Tablet Extended Release 24 Hr 500 mg PO BID acetaminophen 500 mg Tablet 500 mg PO Q6H PRN (Reason: Pain Rated 1-3) Qty: 30 0RF omeprazole 20 mg capsule,delayed release(DR/EC) 20 mg PO QHS Qty: 30 5RF gemfibrozil 600 mg tablet 600 mg PO BID sertraline 50 mg tablet 50 mg PO QAM rosuvastatin 40 mg tablet 40 mg PO DAILY insulin glargine [Basaglar KwikPen U-100 Insulin] 100 unit/mL (3 mL) insulin pen 40 unit SUBCUT DAILY Rx Instructions: 40 UNITS AT HS, BUT ADJUSTS WITH DOWN ON SLIDING SCALE NEEDED Follow-up/Referrals: Andrew,MD Eliecer [Primary Care Provider] Stacey Mayo DPM [Physician, Podiatry] Jareth Whalen MD [Physician, Orthopedics] Stand Alone Forms: Work/School Release IP Time of Disposition: 21:02
[2025-07-12 21:33] VITALS: BP 137/64; PULSE 74; RESP 19; O2SAT 100
== END 2025-07-12 21:34 | disposition home or self-care (01) ==
PROVIDERS: Emergency Provider Student in an Organized Health Care Education/Training Program; PCP Internal Medicine
DX: S92.314A Nondisplaced fracture of first metatarsal bone, right foot, initial encounter for closed fracture (principal); W23.1XXA Caught, crushed, jammed, or pinched between stationary objects, initial encounter; E11.9 Type 2 diabetes mellitus without complications; Z79.4 Long term (current) use of insulin; I10 Essential (primary) hypertension; E78.5 Hyperlipidemia, unspecified; Z79.84 Long term (current) use of oral hypoglycemic drugs; F41.8 Other specified anxiety disorders; Z87.891 Personal history of nicotine dependence
CPT/HCPCS: 73610; 73630; 99284; A9270